=== PATIENT | female | born 1945 | race Caucasian/White ===

== ENCOUNTER 2020-06-19 13:05 | Outpatient (CLI) | payer MEDICARE, SELFPAY ==
--- NOTE | ~2020-06-19 | XR_ITS ---
XR chest 2V 06/19/2020 14:13 Indication: Dyspnea. Type 2 diabetes. Procedure: PA and lateral views of the chest Comparison: No prior studies for comparison. Findings: There is left basilar atelectasis. There is a small hiatal hernia. There is dextroscoliosis of the thoracic spine. Heart size normal. There is atherosclerosis of the aorta. No focal pneumonia, edema, pleural effusion or pneumothorax. Impression: 1: Left basilar atelectasis. 2: Scoliosis. 3: Small hiatal hernia. Reviewed, dictated and finalized at location A. ING MACHINE OPERATOR Impression: 1: Left basilar atelectasis. 2: Scoliosis. 3: Small hiatal hernia.
[2020-06-19 13:30] LABS: Basophils Absolute Auto 0.03 K/mm3 (0.00-0.10); Basophils Percent Auto 0.5 % (0.0-1.0); Eosinophils Absolute Auto 0.22 K/mm3 (0.02-0.50); Eosinophils Percent Auto 3.6 % (1.0-6.0); Hematocrit 39.1 % (35.0-42.0); Hemoglobin 12.4 g/dL (11.7-13.8); Immature Granulocyte Absolute 0.02 K/mm3 (0.00-0.00); Immature Granulocyte Percent A 0.3 % (0.0-0.0); Lymphocytes Absolute Auto 1.41 K/mm3 (1.10-4.50); Lymphocytes Percent Auto 23.4 % (18.0-42.0); Mean Corpuscular HGB Conc 31.7 g/dL (32.0-36.0); Mean Corpuscular Hemoglobin 28.8 pg (27.0-31.0); Mean Corpuscular Volume 90.9 fL (78.0-102.0); Mean Platelet Volume 9.4 fl (9.2-11.8); Monocytes Percent Auto 8.3 % (2.0-11.0); Neutrophils Absolute Auto 3.9 K/mm3 (1.7-7.2); Neutrophils Percent Auto 63.9 % (50.0-70.0); Platelet Count Result 256 K/mm3 (150-420); Red Cell Distribution Width 13.8 % (11.6-14.4)
[2020-06-19 13:48] LABS: Add Urine Microscopic? YES; Appearance Urine Clear (Clear); Bilirubin Urine Negative (Negative); Blood Urine Negative (Negative); Color Urine Yellow (Yellow); Glucose Urine UA Trace (Negative); Hemoglobin A1C 7.8 % (<5.7); Ketones Urine Negative (Negative); Leukocyte Esterase Ur Trace (Negative); Nitrate Urine Negative (Negative); Protein Urine Negative (Negative); Specific Grav Ur 1.015 (1.010-1.020); Urobilinogen Urine 0.2 mg/dL (0.2-1.0); pH Urine 5.5 (5.0-8.0)
--- NOTE | 2020-06-19 13:50 | ECG_ITS ---
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
[2020-06-19 13:56] LABS: RBC Urine 0-2 /hpf (0-2); WBC Urine 0-3 /hpf (0-3)
[2020-06-19 13:57] LABS: Bacteria Urine Trace /hpf; Squamous Epithelial Cell Urine Rare /hpf (Few)
[2020-06-19 14:22] LABS: Alanine Aminotransferase 26 U/L (14-59); Albumin Level 3.7 g/dL (3.4-5.0); Alkaline Phosphatase 83 U/L (46-116); Anion Gap 6 mmol/L (8-16); Aspartate Amino Transferase 13 U/L (15-37); Bilirubin,Total 0.5 mg/dL (0.00-1.00); Blood Urea Nitrogen 19 mg/dL (7-18); Calcium 8.9 mg/dL (8.5-10.1); Carbon Dioxide 30 mmol/L (21-32); Chloride 102 mmol/L (98-108); Cholesterol 152 mg/dL (0-200); Estimated Glomerular Filt Rate > 60; Glucose 127 mg/dL (70-99); HDL Direct 39 mg/dL (40-60); LDL Cholesterol Calculated 85 mg/dL (<130); Osmolality Calculated 290 mOsm/kg (285-295); Potassium 4.3 mmol/L (3.5-5.1); Sodium 138 mmol/L (136-145); Thyroid Stimulating Hormone 0.88 uIU/mL (0.36-3.74); Total Protein 6.5 g/dL (6.4-8.2); Triglycerides 138 mg/dL (0-150); Uric Acid 3.6 mg/dL (2.6-6.0)
[2020-06-19 14:25] LABS: CRP < 0.2 mg/dL (0.0-0.9)
[2020-06-19 15:04] LABS: BNP 52.2 pg/mL (0-100)
[2020-06-20 12:58] LABS: Reference Lab Test Result Negative
[2020-06-23 23:33] LABS: Methylmalonic Acid 114 nmol/L (87-318)
== END 2020-06-19 13:06 | disposition home or self-care (01) ==
LOC: CHSLAB 13:13
PROVIDERS: PCP Internal Medicine; Visit Provider Internal Medicine
DX: R06.00 Dyspnea, unspecified (principal); I10 Essential (primary) hypertension; E11.9 Type 2 diabetes mellitus without complications; E53.8 Deficiency of other specified B group vitamins; Z20.822 Contact with and (suspected) exposure to COVID-19; M25.50 Pain in unspecified joint
CPT/HCPCS: 36415; 71046; 80053; 80061; 81001; 83036; 83880; 83921; 84443; 84550; 85025; 86140; 86769; 93005

== ENCOUNTER 2020-06-30 13:51 | Outpatient (CLI) | payer MEDICARE, SELFPAY ==
--- NOTE | ~2020-06-30 | XR_ITS ---
XR lumbar spine 2-3V DATE: 06/30/2020 14:43 INDICATION: Back pain, knee pain TECHNIQUE: AP, lateral, coned lateral lumbosacral views COMPARISON: None FINDINGS: There is diffuse osteopenia. There is prominent rotatory levoscoliosis of the lumbar spine with severe degenerative disc disease t hroughout the lumbar and lumbosacral spine. No fracture or bone destruction is evident. The sacroiliac joints are intact. There is prominent abdominal aortic calcification without evidence of aneurysm. IMPRESSION: Prominent rotatory levoscoliosis and severe degenerative disc disease throughout the lumb ar and lower cervical spine Osteopenia Reviewed, dictated and finalized at location B. IMPRESSION: Prominent rotatory levoscoliosis and severe degenerative disc disea se throughout the lumbar and lower cervical spine Osteopenia
--- NOTE | ~2020-06-30 | XR_ITS ---
XR knee LT 3V 06/30/2020 14:43 Indication: Left knee pain Procedure: 3 views left knee Comparison: No prior studies for comparison. Findings: Severe osteoarthritis of the left knee. There is chondrocalcinosis. No acute fracture or tr aumatic malalignment. Osteopenia. Small joint effusion. Impression: 1: Severe osteoarthritis of the left knee. Reviewed, dictated and finalized at location A. Impression: 1: Severe osteoarthritis of the left knee.
--- NOTE | ~2020-06-30 | XR_ITS ---
XR knee RT 3V 06/30/2020 14:43 Indication: Right knee pain Procedure: 3 views right knee Comparison: No prior studies for comparison. Findings: There is moderate osteoarthritis of the right knee. Osteopenia. There is chondrocalcinosis. No significant joint effusion. No acute fracture or traumatic malalignment. Impression: 1: Moderate osteoarthritis of the right knee. 2: Chondrocalcinosis. Reviewed, dictated and finalized at location A. Impression: 1: Moderate osteoarthritis of the right knee. 2: Chondrocalcinosis.
--- NOTE | ~2020-06-30 | XR_ITS ---
XR hip BI wo pelvis DATE: 06/30/2020 14:43 INDICATION: Bilateral hip pain TECHNIQUE: AP and lateral views of each hip COMPARISON: None FINDINGS: There is diffuse osteopenia. There is mild osteoarthritis of the hip joints. No fracture or dislocation, avascular necrosis or bon e destruction of either hip is evident. IMPRESSION: Osteopenia Mild bilateral hip osteoarthritis Reviewed, dictated and finalized at location B.
== END 2020-06-30 13:52 | disposition home or self-care (01) ==
LOC: CHSLAB 13:53
PROVIDERS: PCP Internal Medicine; Visit Provider Internal Medicine
DX: M54.9 Dorsalgia, unspecified (principal); M25.562 Pain in left knee; M25.561 Pain in right knee
CPT/HCPCS: 72100; 73521; 73562

== ENCOUNTER 2021-02-05 13:47 | Outpatient (CLI) | payer MEDICARE, SELFPAY ==
--- NOTE | ~2021-02-05 | US_ITS ---
EXAMINATION: US venous doppler [facility] DATE: 02/05/2021 15:38 INDICATION: Left lower limb pain. TECHNIQUE: Grayscale ultrasound images without and with compression and Doppler ultrasound images of the left lower extremity veins were obtained. COMPARISON: None. FINDINGS: The visualized portions of left common femoral vein, profunda (deep) femoral vein, femoral vein, popl iteal vein, peroneal veins, posterior tibial veins, and greater saphenous vein outflow are patent. Th ere is a moderate-sized Portillo's cyst. IMPRESSION: 1. No deep venous thrombosis. 2. Moderate-sized Portillo's cyst. Reviewed, dictated and finalized at location A.
[2021-02-05 14:15] LABS: Hematocrit 40.1 % (35.0-42.0); Hemoglobin 12.8 g/dL (11.7-13.8); Mean Corpuscular HGB Conc 31.9 g/dL (32.0-36.0); Mean Corpuscular Hemoglobin 28.6 pg (27.0-31.0); Mean Corpuscular Volume 89.5 fL (78.0-102.0); Mean Platelet Volume 9.4 fl (9.2-11.8); Platelet Count Result 255 K/mm3 (150-420); Red Blood Count 4.48 M/mm3 (4.20-5.40); Red Cell Distribution Width 14.6 % (11.6-14.4); White Blood Count 4.7 K/mm3 (4.8-10.8)
[2021-02-05 14:35] LABS: Band Neutrophils Percent 0 % (0-6); Basophils Percent Manual 0 % (0-1); Eosinophils Absolute Manual 0.28 K/mm3 (0.02-0.5); Eosinophils Percent Manual 6 % (1-6); Lymphocytes Absolute Manual 0.84 K/mm3 (1.1-4.5); Lymphocytes Percent Manual 18 % (18-44); Monocytes Absolute Manual 0.42 K/mm3 (0.1-0.90); Monocytes Percent Manual 9 % (3-9); Neutrophils Absolute Manual 3.14 K/mm3 (1.7-7.2); Neutrophils Percent Manual 67 % (46-73); Platelet Estimate Adequate (Adequate); Total Cells Counted 100
[2021-02-05 14:42] LABS: D Dimer 0.85 mg/L (0.19-0.50)
[2021-02-05 14:53] LABS: Alanine Aminotransferase 34 U/L (14-59); Albumin Level 3.6 g/dL (3.4-5.0); Alkaline Phosphatase 106 U/L (46-116); Anion Gap 7 mmol/L (8-16); Aspartate Amino Transferase 20 U/L (15-37); Bilirubin,Total 0.4 mg/dL (0.00-1.00); Blood Urea Nitrogen 14 mg/dL (7-18); Calcium 8.9 mg/dL (8.5-10.1); Carbon Dioxide 30 mmol/L (21-32); Chloride 102 mmol/L (98-108); Estimated Glomerular Filt Rate > 60; Glucose 111 mg/dL (70-99); Osmolality Calculated 289 mOsm/kg (285-295); Potassium 4.5 mmol/L (3.5-5.1); Sodium 139 mmol/L (136-145); Total Protein 6.6 g/dL (6.4-8.2); Uric Acid 4.4 mg/dL (2.6-6.0)
== END 2021-02-05 13:48 | disposition home or self-care (01) ==
PROVIDERS: PCP Internal Medicine; Visit Provider Nurse Practitioner Family
DX: M79.662 Pain in left lower leg (principal); R79.1 Abnormal coagulation profile; M79.89 Other specified soft tissue disorders
CPT/HCPCS: 36415; 80053; 84550; 85025; 85380; 93971

== ENCOUNTER 2021-03-29 13:55 | Outpatient (CLI) | payer MEDICARE, SELFPAY ==
--- NOTE | ~2021-03-29 | XR_ITS ---
XR shoulder RT min 2V DATE: 03/29/2021 14:29 INDICATION: Right shoulder pain TECHNIQUE: 4 views COMPARISON: None FINDINGS: There is prominent dextroscoliosis of the thoracic spine. There is osteoarthritic change at the right glenohumeral joint including prominent joint space narrow ing. No fracture or dislocation, periosteal reaction or bone destruction or abnormal soft tissue calcifica tion of the right shoulder is detected. IMPRESSION: Osteoarthritis at the right glenohumeral joint Prominent dextroscoliosis of the thoracic spine Reviewed, dictated and finalized at location B. STMENT MANAGER
== END 2021-03-29 13:56 | disposition home or self-care (01) ==
LOC: CHSIMG 13:57
PROVIDERS: PCP Internal Medicine; Visit Provider Internal Medicine
DX: M25.511 Pain in right shoulder (principal)
CPT/HCPCS: 73030

== ENCOUNTER 2021-08-11 13:34 | Outpatient (CLI) | payer MEDICARE, SELFPAY ==
[2021-08-11 14:30] LABS: Hemoglobin A1C 7.5 % (<5.7)
[2021-08-11 15:24] LABS: Alanine Aminotransferase 26 U/L (14-59); Albumin Level 3.6 g/dL (3.4-5.0); Alkaline Phosphatase 100 U/L (46-116); Anion Gap 6 mmol/L (8-16); Aspartate Amino Transferase 16 U/L (15-37); Bilirubin,Total 0.4 mg/dL (0.00-1.00); Blood Urea Nitrogen 14 mg/dL (7-18); Calcium 9.1 mg/dL (8.5-10.1); Carbon Dioxide 30 mmol/L (21-32); Chloride 99 mmol/L (98-108); Estimated Glomerular Filt Rate > 60; Ferritin 17 ng/mL (8-252); Free T4 Free Thyroxine 1.18 ng/dL (0.76-1.46); Glucose 134 mg/dL (70-99); Iron 43 ug/dL (50-170); Osmolality Calculated 282 mOsm/kg (285-295); Percent Iron Saturation 12 % (12-57); Potassium 4.3 mmol/L (3.5-5.1); Sodium 135 mmol/L (136-145); Total Protein 6.1 g/dL (6.4-8.2)
[2021-08-12 15:29] LABS: Cholesterol 169 mg/dL (0-200); HDL Direct 44 mg/dL (40-60); LDL Cholesterol Calculated 101 mg/dL (<130); Triglycerides 119 mg/dL (0-150)
[2021-08-13 19:56] LABS: Glutamic acid decarboxylase AA <5 IU/mL (<5)
[2021-08-14 06:46] LABS: Insulin Level Total 36.7 uIU/mL (<=19.6); Thyroid Peroxidase Antibodies 35 IU/mL (<9)
[2021-08-14 08:09] LABS: C-Peptide 0.78 ng/mL (0.80-3.85)
[2021-08-16 14:51] LABS: Testosterone Free 0.9 pg/mL (0.2-3.7); Testosterone Total 14 ng/dL (2-45)
== END 2021-08-11 13:35 | disposition home or self-care (01) ==
LOC: CHSLAB 13:37
PROVIDERS: PCP Internal Medicine; Visit Provider Nurse Practitioner
DX: E03.9 Hypothyroidism, unspecified (principal); L65.9 Nonscarring hair loss, unspecified; E11.65 Type 2 diabetes mellitus with hyperglycemia
CPT/HCPCS: 36415; 80053; 80061; 82728; 83036; 83525; 83540; 83550; 84402; 84403; 84439; 84443; 84481; 84681; 86337; 86341; 86376

== ENCOUNTER 2022-01-06 15:58 | Outpatient (CLI) | payer MEDICARE, SELFPAY ==
[2022-01-06 16:30] LABS: Basophils Absolute Auto 0.03 K/mm3 (0.00-0.10); Basophils Percent Auto 0.4 % (0.0-1.0); Eosinophils Absolute Auto 0.31 K/mm3 (0.02-0.50); Eosinophils Percent Auto 4.6 % (1.0-6.0); Hematocrit 40.8 % (35.0-42.0); Hemoglobin 13.4 g/dL (11.7-13.8); Immature Granulocyte Absolute 0.03 K/mm3 (0.00-0.00); Immature Granulocyte Percent A 0.4 % (0.0-0.0); Immature Reticulocyte Fraction 15.9 % (2.0-16.52); Lymphocytes Absolute Auto 1.02 K/mm3 (1.10-4.50); Lymphocytes Percent Auto 15.1 % (18.0-42.0); Mean Corpuscular HGB Conc 32.8 g/dL (32.0-36.0); Mean Corpuscular Hemoglobin 30.7 pg (27.0-31.0); Mean Corpuscular Volume 93.4 fL (78.0-102.0); Monocytes Absolute Auto 0.49 K/mm3 (0.10-0.90); Monocytes Percent Auto 7.2 % (2.0-11.0); Neutrophils Absolute Auto 4.9 K/mm3 (1.7-7.2); Neutrophils Percent Auto 72.3 % (50.0-70.0); Platelet Count Result 280 K/mm3 (150-420); Red Blood Count 4.37 M/mm3 (4.20-5.40); Reticulocyte Hemoglobin Conten 34.8 pg (28.0-35.0); Reticulocyte Percent 2.28 % (0.50-1.50); White Blood Count 6.8 K/mm3 (4.8-10.8)
[2022-01-06 17:25] LABS: Alanine Aminotransferase 46 U/L (14-59); Albumin Level 2.4 g/dL (3.4-5.0); Alkaline Phosphatase 117 U/L (46-116); Anion Gap 13 mmol/L (8-16); Aspartate Amino Transferase 111 U/L (15-37); Bilirubin,Total 2.2 mg/dL (0.00-1.00); Blood Urea Nitrogen 126 mg/dL (7-18); Carbon Dioxide 22 mmol/L (21-32); Chloride 99 mmol/L (98-108); Estimated Glomerular Filt Rate 6; Folic Acid 3.7 ng/mL (8.6->20); Glucose 83 mg/dL (70-99); Iron 88 ug/dL (50-170); Osmolality Calculated 317 mOsm/kg (285-295); Percent Iron Saturation 91 % (12-57); Potassium 6.1 mmol/L (3.5-5.1); Sodium 134 mmol/L (136-145); Total Protein 6.2 g/dL (6.4-8.2)
[2022-01-06 17:30] LABS: Ferritin > 1000 ng/mL (8-252); Vitamin B12 > 2000 pg/mL (193-986)
[2022-01-09 16:58] LABS: Methylmalonic Acid 103 nmol/L (87-318)
[2022-01-11 17:44] LABS: Soluble Transferrin Receptor 0.82 mg/L (0.76-1.76)
== END 2022-01-06 15:59 | disposition home or self-care (01) ==
LOC: CHSLAB 16:01
PROVIDERS: PCP Internal Medicine; Visit Provider Internal Medicine Hematology & Oncology
DX: D64.9 Anemia, unspecified (principal)
CPT/HCPCS: 36415; 80053; 82607; 82728; 82746; 83540; 83550; 83921; 84238; 85025; 85046

== ENCOUNTER 2022-01-19 14:02 | Outpatient (CLI) | payer MEDICARE, SELFPAY ==
[2022-01-19 14:25] LABS: Hematocrit 39.4 % (35.0-42.0); Hemoglobin 12.9 g/dL (11.7-13.8); Mean Corpuscular HGB Conc 32.7 g/dL (32.0-36.0); Mean Corpuscular Hemoglobin 30.1 pg (27.0-31.0); Mean Corpuscular Volume 91.8 fL (78.0-102.0); Mean Platelet Volume 9.6 fl (9.2-11.8); Platelet Count Result 278 K/mm3 (150-420); Red Blood Count 4.29 M/mm3 (4.20-5.40); Red Cell Distribution Width 12.8 % (11.6-14.4); White Blood Count 7.2 K/mm3 (4.8-10.8)
[2022-01-19 15:11] LABS: Alanine Aminotransferase 26 U/L (14-59); Albumin Level 3.4 g/dL (3.4-5.0); Alkaline Phosphatase 104 U/L (46-116); Anion Gap 6 mmol/L (8-16); Aspartate Amino Transferase 17 U/L (15-37); Bilirubin,Total 0.4 mg/dL (0.00-1.00); Blood Urea Nitrogen 11 mg/dL (7-18); Calcium 9.1 mg/dL (8.5-10.1); Carbon Dioxide 30 mmol/L (21-32); Chloride 102 mmol/L (98-108); Estimated Glomerular Filt Rate > 60; Ferritin 41 ng/mL (8-252); Glucose 114 mg/dL (70-99); Osmolality Calculated 286 mOsm/kg (285-295); Potassium 4.1 mmol/L (3.5-5.1); Sodium 138 mmol/L (136-145); Total Protein 6.2 g/dL (6.4-8.2)
[2022-01-19 15:13] LABS: Folic Acid > 20.0 ng/mL (8.6->20); Vitamin B12 > 2000 pg/mL (193-986)
== END 2022-01-19 14:03 | disposition home or self-care (01) ==
LOC: CHSLAB 14:05
PROVIDERS: PCP Internal Medicine; Visit Provider Internal Medicine Hematology & Oncology
DX: D64.9 Anemia, unspecified (principal)
CPT/HCPCS: 36415; 80053; 82607; 82728; 82746; 85027

== ENCOUNTER 2022-03-09 14:09 | Outpatient (CLI) | payer MEDICARE, SELFPAY ==
[2022-03-09 14:46] LABS: Hemoglobin A1C 7.3 % (<5.7)
[2022-03-09 15:29] LABS: Alanine Aminotransferase 26 U/L (14-59); Albumin Level 3.4 g/dL (3.4-5.0); Alkaline Phosphatase 84 U/L (46-116); Anion Gap 6 mmol/L (8-16); Aspartate Amino Transferase 17 U/L (15-37); Bilirubin,Total 0.5 mg/dL (0.00-1.00); Blood Urea Nitrogen 17 mg/dL (7-18); Carbon Dioxide 33 mmol/L (21-32); Chloride 104 mmol/L (98-108); Cholesterol 164 mg/dL (0-200); Estimated Glomerular Filt Rate > 60; Ferritin 27 ng/mL (8-252); Free T3 2.07 pg/mL (2.18-3.98); Free T4 Free Thyroxine 1.22 ng/dL (0.76-1.46); Glucose 72 mg/dL (70-99); HDL Direct 44 mg/dL (40-60); Iron 60 ug/dL (50-170); LDL Cholesterol Calculated 104 mg/dL (<130); Osmolality Calculated 296 mOsm/kg (285-295); Percent Iron Saturation 19 % (12-57); Sodium 143 mmol/L (136-145); Thyroid Stimulating Hormone 0.58 uIU/mL (0.36-3.74); Total Protein 5.8 g/dL (6.4-8.2); Triglycerides 79 mg/dL (0-150)
[2022-03-12 03:04] LABS: C-Peptide 0.39 ng/mL (0.80-3.85)
[2022-03-13 04:28] LABS: Thyroid Peroxidase Antibodies 41 IU/mL (<9)
== END 2022-03-09 14:10 | disposition home or self-care (01) ==
LOC: CHSLAB 14:12
PROVIDERS: PCP Internal Medicine; Visit Provider Nurse Practitioner
DX: E03.9 Hypothyroidism, unspecified (principal); E11.65 Type 2 diabetes mellitus with hyperglycemia; E61.1 Iron deficiency
CPT/HCPCS: 36415; 80053; 80061; 82728; 83036; 83540; 83550; 84439; 84443; 84481; 84681; 86376

== ENCOUNTER 2022-04-25 13:31 | Outpatient (CLI) | payer MEDICARE, SELFPAY ==
--- NOTE | ~2022-04-25 | XR_ITS ---
XR shoulder RT min 2V DATE: 04/25/2022 13:55 INDICATION: Right shoulder pain TECHNIQUE: 4 views COMPARISON: 03/29/2021 right shoulder FINDINGS: There is severe joint space narrowing at the right glenohumeral joint with prominent subart icular degenerative cystic change at the glenoid and particularly of the humeral head, in addition to humeral head spurring, consistent with severe glenohumeral osteoarthritis. Normal alignment at the acromioclavicular joint. No fracture, dislocation, periosteal reaction or bone destruction or abnormal soft tissue calcificati on of the right shoulder. Prominent dextroscoliosis of the thoracic spine. IMPRESSION: Severe glenohumeral osteoarthritis Reviewed, dictated and finalized at location B. IT UNION FIELD EXAMINER
== END 2022-04-25 13:32 | disposition home or self-care (01) ==
LOC: ANHBWCIMG 13:32
PROVIDERS: PCP Internal Medicine; Visit Provider Orthopaedic Surgery
DX: M19.011 Primary osteoarthritis, right shoulder (principal); M25.511 Pain in right shoulder
CPT/HCPCS: 73030

== ENCOUNTER 2022-05-27 15:14 | Outpatient (CLI) | payer MEDICARE, SELFPAY ==
[2022-05-27 15:48] LABS: Hemoglobin A1C 7.8 % (<5.7)
[2022-05-27 16:12] LABS: Alanine Aminotransferase 28 U/L (14-59); Albumin Level 3.5 g/dL (3.4-5.0); Alkaline Phosphatase 98 U/L (46-116); Anion Gap 4 mmol/L (8-16); Aspartate Amino Transferase 18 U/L (15-37); Bilirubin,Total 0.4 mg/dL (0.00-1.00); Blood Urea Nitrogen 17 mg/dL (7-18); Carbon Dioxide 34 mmol/L (21-32); Chloride 104 mmol/L (98-108); Cholesterol 153 mg/dL (0-200); Estimated Glomerular Filt Rate > 60; Glucose 86 mg/dL (70-99); HDL Direct 42 mg/dL (40-60); LDL Cholesterol Calculated 96 mg/dL (<130); Osmolality Calculated 294 mOsm/kg (285-295); Potassium 4.5 mmol/L (3.5-5.1); Sodium 142 mmol/L (136-145); Triglycerides 73 mg/dL (0-150)
== END 2022-05-27 15:15 | disposition home or self-care (01) ==
LOC: CHSLAB 15:21
PROVIDERS: PCP Internal Medicine; Visit Provider Internal Medicine
DX: E11.9 Type 2 diabetes mellitus without complications (principal); I10 Essential (primary) hypertension; E03.9 Hypothyroidism, unspecified
CPT/HCPCS: 36415; 80053; 80061; 83036; 84443

== ENCOUNTER 2022-05-31 14:34 | Outpatient (CLI) | payer MEDICARE, SELFPAY ==
[2022-05-31 14:56] LABS: Basophils Absolute Auto 0.04 K/mm3 (0.00-0.10); Basophils Percent Auto 0.6 % (0.0-1.0); Eosinophils Absolute Auto 0.33 K/mm3 (0.02-0.50); Eosinophils Percent Auto 4.9 % (1.0-6.0); Hemoglobin 12.6 g/dL (11.7-13.8); Immature Granulocyte Absolute 0.03 K/mm3 (0.00-0.00); Immature Granulocyte Percent A 0.4 % (0.0-0.0); Lymphocytes Absolute Auto 1.04 K/mm3 (1.10-4.50); Lymphocytes Percent Auto 15.4 % (18.0-42.0); Mean Corpuscular HGB Conc 31.5 g/dL (32.0-36.0); Mean Corpuscular Hemoglobin 29.8 pg (27.0-31.0); Mean Corpuscular Volume 94.6 fL (78.0-102.0); Mean Platelet Volume 9.5 fl (9.2-11.8); Monocytes Absolute Auto 0.62 K/mm3 (0.10-0.90); Monocytes Percent Auto 9.2 % (2.0-11.0); Neutrophils Absolute Auto 4.7 K/mm3 (1.7-7.2); Neutrophils Percent Auto 69.5 % (50.0-70.0); Platelet Count Result 275 K/mm3 (150-420); Red Blood Count 4.23 M/mm3 (4.20-5.40); Red Cell Distribution Width 13.2 % (11.6-14.4); White Blood Count 6.8 K/mm3 (4.8-10.8)
[2022-05-31 15:46] LABS: Anion Gap 7 mmol/L (8-16); Blood Urea Nitrogen 13 mg/dL (7-18); Calcium 9.2 mg/dL (8.5-10.1); Carbon Dioxide 29 mmol/L (21-32); Chloride 104 mmol/L (98-108); Estimated Glomerular Filt Rate > 60; Ferritin 31 ng/mL (8-252); Glucose 110 mg/dL (70-99); Iron 47 ug/dL (50-170); Osmolality Calculated 291 mOsm/kg (285-295); Percent Iron Saturation 15 % (12-57); Potassium 4.1 mmol/L (3.5-5.1); Sodium 140 mmol/L (136-145)
[2022-05-31 16:07] LABS: Vitamin B12 > 2000 pg/mL (193-986)
[2022-05-31 16:08] LABS: Folic Acid > 20.0 ng/mL (8.6->20)
== END 2022-05-31 14:35 | disposition home or self-care (01) ==
PROVIDERS: PCP Internal Medicine; Visit Provider Internal Medicine Hematology & Oncology
DX: D64.9 Anemia, unspecified (principal)
CPT/HCPCS: 36415; 80048; 82607; 82728; 82746; 83540; 83550; 85025

== ENCOUNTER 2022-08-30 16:24 | Outpatient (CLI) | payer MEDICARE, SELFPAY ==
[2022-08-30 18:41] LABS: Alanine Aminotransferase 25 U/L (14-59); Albumin Level 3.8 g/dL (3.4-5.0); Alkaline Phosphatase 111 U/L (46-116); Anion Gap 6 mmol/L (8-16); Aspartate Amino Transferase 17 U/L (15-37); Bilirubin,Total 0.5 mg/dL (0.00-1.00); Blood Urea Nitrogen 17 mg/dL (7-18); Calcium 9.6 mg/dL (8.5-10.1); Carbon Dioxide 31 mmol/L (21-32); Chloride 104 mmol/L (98-108); Cholesterol 168 mg/dL (0-200); Estimated Glomerular Filt Rate > 60; Free T3 3.03 pg/mL (2.18-3.98); Free T4 Free Thyroxine 1.42 ng/dL (0.76-1.46); Glucose 129 mg/dL (70-99); Osmolality Calculated 295 mOsm/kg (285-295); Potassium 4.4 mmol/L (3.5-5.1); Sodium 141 mmol/L (136-145); Thyroid Stimulating Hormone 0.01 uIU/mL (0.36-3.74); Total Protein 6.3 g/dL (6.4-8.2)
[2022-08-30 19:09] LABS: HDL Direct 40 mg/dL (40-60); LDL Cholesterol Calculated 100 mg/dL (<130); Triglycerides 139 mg/dL (0-150)
[2022-09-04 21:34] LABS: C-Peptide 0.83 ng/mL (0.80-3.85)
[2022-09-05 02:17] LABS: Thyroid Peroxidase Antibodies 243 IU/mL (<9)
== END 2022-08-30 16:25 | disposition home or self-care (01) ==
LOC: CHSLAB 16:27
PROVIDERS: PCP Internal Medicine; Visit Provider Internal Medicine Endocrinology, Diabetes & Metabolism
DX: E03.9 Hypothyroidism, unspecified (principal); E13.9 Other specified diabetes mellitus without complications
CPT/HCPCS: 36415; 80053; 80061; 83036; 84439; 84443; 84481; 84681; 86376

== ENCOUNTER 2022-09-27 14:54 | Outpatient (CLI) | payer MEDICARE, SELFPAY ==
[2022-09-27 15:46] LABS: Basophils Absolute Auto 0.03 K/mm3 (0.00-0.10); Basophils Percent Auto 0.4 % (0.0-1.0); Eosinophils Absolute Auto 0.33 K/mm3 (0.02-0.50); Eosinophils Percent Auto 4.2 % (1.0-6.0); Hematocrit 39.3 % (35.0-42.0); Hemoglobin 12.3 g/dL (11.7-13.8); Immature Granulocyte Absolute 0.02 K/mm3 (0.00-0.00); Immature Granulocyte Percent A 0.3 % (0.0-0.0); Lymphocytes Absolute Auto 0.98 K/mm3 (1.10-4.50); Lymphocytes Percent Auto 12.5 % (18.0-42.0); Mean Corpuscular HGB Conc 31.3 g/dL (32.0-36.0); Mean Corpuscular Hemoglobin 29.3 pg (27.0-31.0); Mean Corpuscular Volume 93.6 fL (78.0-102.0); Mean Platelet Volume 10.3 fl (9.2-11.8); Monocytes Absolute Auto 0.65 K/mm3 (0.10-0.90); Monocytes Percent Auto 8.3 % (2.0-11.0); Neutrophils Absolute Auto 5.9 K/mm3 (1.7-7.2); Neutrophils Percent Auto 74.3 % (50.0-70.0); Platelet Count Result 281 K/mm3 (150-420); Red Cell Distribution Width 14.4 % (11.6-14.4); White Blood Count 7.9 K/mm3 (4.8-10.8)
[2022-09-27 16:01] LABS: Anion Gap 7 mmol/L (8-16); Blood Urea Nitrogen 15 mg/dL (7-18); Calcium 9.3 mg/dL (8.5-10.1); Carbon Dioxide 30 mmol/L (21-32); Chloride 105 mmol/L (98-108); Estimated Glomerular Filt Rate > 60; Ferritin 50 ng/mL (8-252); Glucose 130 mg/dL (70-99); Iron 29 ug/dL (50-170); Osmolality Calculated 296 mOsm/kg (285-295); Percent Iron Saturation 9 % (12-57); Potassium 4.3 mmol/L (3.5-5.1); Sodium 142 mmol/L (136-145); Vitamin B12 > 2000 pg/mL (193-986)
[2022-09-27 16:02] LABS: Folic Acid > 20.0 ng/mL (8.6->20)
== END 2022-09-27 14:55 | disposition home or self-care (01) ==
LOC: CHSLAB 14:57
PROVIDERS: PCP Internal Medicine; Visit Provider Internal Medicine Hematology & Oncology
DX: D64.9 Anemia, unspecified (principal)
CPT/HCPCS: 36415; 80048; 82607; 82728; 82746; 83540; 83550; 85025

== ENCOUNTER 2022-09-27 18:28 | Emergency (ER) | payer MEDICARE, SELFPAY ==
--- NOTE | ~2022-09-27 | XR_ITS ---
EXAM: XR foot RT min 3V DATE: 09/27/2022 19:32 HISTORY: Diabetic ulcer 2nd toe . COMPARISON: None available. FINDINGS: Decreased mineralization. No fracture or dislocation. No lytic or blastic lesion. Scattere d moderate degenerative changes. No erosion or periosteal change. Soft tissues within normal limits. IMPRESSION: No radiographic evidence of osteomyelitis. Reviewed, dictated and finalized at location K.
[2022-09-27 18:31] VITALS: BP 156/60; PULSE 89; RESP 18; TEMP 36.9; O2SAT 96
--- NOTE | 2022-09-27 18:35 | ED.WOUNDLAC ---
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 He did debridement of the wound following which nail fell off. The patient was started on Keflex. She presents to the ER with extension of erythema and puss at the nail fold. Swelling of right leg and foot She does not have any fever or chills. Onset (ago): day(s) ( Started 3 days ago) Extremity Location: Right: foot Body four view annotation: 1. right foot 2nd toe with denudation of skin over the top and the sides of the 2nd toe. Purulent discharge at the nail fold. Patient tetanus UTD: No Context: other ( the blister came up spontaneously.) Associated symptoms: none Related Data Home Medications Medication Instructions Recorded Confirmed cephalexin 500 mg capsule 500 mg PO BID 09/27/22 09/27/22 duloxetine 20 mg capsule,delayed 20 mg PO DAILY 09/27/22 09/27/22 release insulin glargine 100 unit/mL 25 unit subcut BID 09/27/22 09/27/22 subcutaneous solution (Lantus U-100 Insulin) latanoprost 0.005 % eye drops 1 drp EACH EYE DAILY 09/27/22 09/27/22 levothyroxine 125 mcg tablet 125 mcg PO DAILY 09/27/22 09/27/22 (Unithroid) lisinopril 40 mg tablet 40 mg PO DAILY 09/27/22 09/27/22 timolol maleate 0.5 % eye drops 10 drp EACH EYE DAILY 09/27/22 09/27/22 verapamil 360 mg 24 hr 360 mg PO DAILY 09/27/22 09/27/22 capsule,extended release Allergies Allergy/AdvReac Type Severity Reaction Status Date / Time No Known Allergies Allergy Verified 09/27/22 18:39 Review of Systems Review of Systems: All systems reviewed & are unremarkable except as noted in HPI and below Constitutional: Constitutional: Reports as per HPI and Reports no additional constitutional complaints Eyes: Eyes: Reports as per HPI and Reports no additional eye complaints ENT: Reports system reviewed and no additional complaints, except as documented and Reports as per HPI Cardiovascular: Cardiovascular: Reports as per HPI and Reports no additional cardiovascular complaints Respiratory: Respiratory: Reports as per HPI and Reports no additional respiratory complaints Gastrointestinal: Gastrointestinal: Reports as per HPI and Reports no additional gastrointestinal complaints Genitourinary: Genitourinary: Reports no additional female genitourinary complaints and Reports as per HPI Musculoskeletal: Musculoskeletal: Reports no additional musculoskeletal complaints and Reports as per HPI Integumentary/Breasts: Skin/Breast: Reports system reviewed and no additional complaints, except as docu and Reports as per HPI Comments: Ulceration over right 2nd toe with denuded skin over the top of the sites of the 2nd toe Neurologic: Reports system reviewed and no additional complaints, except as documented and Reports as per HPI Psychiatric: Psychiatric: Reports no additional psychiatric complaints and Reports as per HPI Endocrine: Endocrine: Reports no additional endocrine complaints and Reports as per HPI Hematologic/Lymphatic: Hematologic/Lymphatic: Reports no additional hematologic/lymphatic complaints and Reports as per HPI Allergic/Immunologic: Allergic/Immunologic: Reports no additional allergic/immunologic complaints and Reports as per HPI [facility] Past Medical History Medical History (Updated 09/27/22 @ 20:21 by Keyon Donald MD) Arthritis of left shoulder region Arthritis of shoulder region, right, degenerative Diabetes mellitus Hypertension Hypothyroidism Peripheral neuropathy Social History Social History Smoking status:
[2022-09-27 19:37] LABS: Hematocrit 38.9 % (35.0-42.0); Hemoglobin 12.2 g/dL (11.7-13.8); Mean Corpuscular HGB Conc 31.4 g/dL (32.0-36.0); Mean Corpuscular Hemoglobin 29.5 pg (27.0-31.0); Platelet Count Result 261 K/mm3 (150-420); Red Blood Count 4.14 M/mm3 (4.20-5.40); Red Cell Distribution Width 14.5 % (11.6-14.4); White Blood Count 7.6 K/mm3 (4.8-10.8)
[2022-09-27 19:38] LABS: Basophils Absolute Auto 0.02 K/mm3 (0.00-0.10); Basophils Percent Auto 0.3 % (0.0-1.0); Eosinophils Absolute Auto 0.27 K/mm3 (0.02-0.50); Eosinophils Percent Auto 3.6 % (1.0-6.0); Immature Granulocyte Absolute 0.03 K/mm3 (0.00-0.00); Immature Granulocyte Percent A 0.4 % (0.0-0.0); Lymphocytes Absolute Auto 0.91 K/mm3 (1.10-4.50); Mean Platelet Volume 9.9 fl (9.2-11.8); Monocytes Percent Auto 7.9 % (2.0-11.0); Neutrophils Absolute Auto 5.7 K/mm3 (1.7-7.2); Neutrophils Percent Auto 75.8 % (50.0-70.0)
[2022-09-27 19:50] LABS: INR 0.9; Prothrombin Time 10.2 Seconds (9.50-12.10)
[2022-09-27 19:52] VITALS: BP 136/51; PULSE 71; RESP 16; O2SAT 92
[2022-09-27 19:59] LABS: Lactic Acid Reflex 1.1 mmol/L (0.4-2.0)
[2022-09-27 20:01] LABS: Alanine Aminotransferase 23 U/L (14-59); Albumin Level 3.1 g/dL (3.4-5.0); Alkaline Phosphatase 108 U/L (46-116); Anion Gap 8 mmol/L (8-16); Aspartate Amino Transferase 16 U/L (15-37); Bilirubin,Total 0.4 mg/dL (0.00-1.00); Blood Urea Nitrogen 17 mg/dL (7-18); Calcium 8.9 mg/dL (8.5-10.1); Carbon Dioxide 29 mmol/L (21-32); Chloride 104 mmol/L (98-108); Estimated CRCL calculation 43 ml/min; Estimated Glomerular Filt Rate 60; Glucose 350 mg/dL (70-99); Osmolality Calculated 307 mOsm/kg (285-295); Potassium 4.1 mmol/L (3.5-5.1); Sodium 141 mmol/L (136-145); Thyroid Stimulating Hormone 0.04 uIU/mL (0.36-3.74); Total Protein 6.4 g/dL (6.4-8.2)
[2022-09-27] MEDS: SULFAMETHOXAZOLE/TRIMETHOPRIM 800/160 MG DS TABLET 1 TAB PO (20:21)
[2022-09-27] MEDS: TETANUS,DIPHTHERIA,AC PERTUSSIS ADULT 0.5 ML (ADACEL) IM (20:22)
[2022-09-27 20:42] LABS: Erythrocyte Sedimentation Rate 27 mm/hr (0-20)
[2022-09-27 20:44] VITALS: BP 133/51; PULSE 71; RESP 18; O2SAT 94
--- NOTE | 2022-10-01 13:55 | PC.NURSE ---
Final blood culture report for Aerobic culture, moderate growth of staphylococcus aureus, patient d/c on bactrim ds that show sensativity. no change in treatment.
--- NOTE | 2022-10-04 14:36 | PC.NURSE ---
FINAL ANAEROBIC CULTURE: GRAM POSITIVE COCCI IN CLUSTERS, NO ANAEROBES ISOLATED. FINAL AEROBIC CULTURE: ISOLATE 1: MODERATED GROWTH OF STAPH AUREUS PER DR BAINS AND C & S TREATMENT IS APPROPRIATE
--- NOTE | 2022-10-04 14:40 | PC.NURSE ---
FINAL BLOOD CULTURE RESULTS X2: NO GROWTH AFTER 5 DA
== END 2022-09-27 20:45 | disposition home or self-care (01) ==
PROVIDERS: Emergency Provider Internal Medicine Critical Care Medicine; PCP Internal Medicine
DX: E11.628 Type 2 diabetes mellitus with other skin complications (principal); L03.031 Cellulitis of right toe; E11.65 Type 2 diabetes mellitus with hyperglycemia; M79.89 Other specified soft tissue disorders; I10 Essential (primary) hypertension; E03.9 Hypothyroidism, unspecified; Z79.4 Long term (current) use of insulin; Z23 Encounter for immunization
CPT/HCPCS: 36415; 73630; 80053; 83605; 84443; 85025; 85610; 85652; 87040; 87070; 87075; 87147; 87186; 87205; 90471; 90715; 99283; A9270

== ENCOUNTER 2022-10-24 13:33 | Emergency (ER) | payer MEDICARE, SELFPAY ==
[2022-10-24 13:34] VITALS: BP 151/73; PULSE 81; RESP 20; TEMP 37.1; O2SAT 98
--- NOTE | 2022-10-24 14:18 | ED.GENADULT ---
HPI - General Adult General Chief complaint: Extremity Injury, Lower Stated complaint: R toe cellulitis Time Seen by Provider: 10/24/22 13:45 History of Present Illness HPI narrative: 77yo woman with diabetes mellitus (a1c 8%) presents with chronic wound to the top of the second toe on the right foot. Started as a blister that ruptures, continues to leak clear fluid. Pt has been dressing tightly with gauze and wearing closed toed shoes. No fevers or chills. Related Data Home Medications Medication Instructions Recorded Confirmed cephalexin 500 mg capsule 500 mg PO BID 09/27/22 09/27/22 duloxetine 20 mg capsule,delayed 20 mg PO DAILY 09/27/22 09/27/22 release insulin glargine 100 unit/mL 25 unit subcut BID 09/27/22 09/27/22 subcutaneous solution (Lantus U-100 Insulin) latanoprost 0.005 % eye drops 1 drp EACH EYE DAILY 09/27/22 09/27/22 levothyroxine 125 mcg tablet 125 mcg PO DAILY 09/27/22 09/27/22 (Unithroid) lisinopril 40 mg tablet 40 mg PO DAILY 09/27/22 09/27/22 timolol maleate 0.5 % eye drops 10 drp EACH EYE DAILY 09/27/22 09/27/22 verapamil 360 mg 24 hr 360 mg PO DAILY 09/27/22 09/27/22 capsule,extended release Allergies Allergy/AdvReac Type Severity Reaction Status Date / Time No Known Allergies Allergy Verified 09/27/22 18:39 Review of Systems Review of Systems: All systems reviewed & are unremarkable except as noted in HPI and below Constitutional: Constitutional: Denies chills and Denies fever(s) ENT: Denies dysphagia Cardiovascular: Cardiovascular: Denies chest pain Respiratory: Respiratory: Denies dyspnea PMFSH Past Medical History Medical History Arthritis of left shoulder region Arthritis of shoulder region, right, degenerative Diabetes mellitus Hypertension Hypothyroidism Peripheral neuropathy Social History Social History Smoking status: Never smoker Exam Const: General: healthy appearing and no acute distress Nutritional Appearance: well nourished Eyes: Conjunctivae: conjunctivae normal Resp: Effort & Inspection: normal respiratory effort and not labored Cardio: Rate: regular rate GI: Inspection: non-distended Skin: General skin exam: no jaundice and no pallor Other: Mild Chronic venous stasis dermatitis with hyperpigmentation to the feet and lower legs. Right second toe with denuded dorsal blister and chronically thickened skin. No surrounding cellulitis. Neuro: General: patient oriented x3 and moves all extremities Course Vital Signs Vital signs: Vital Signs Temperature 37.1 C 10/24/22 13:34 Pulse Rate 81 10/24/22 13:34 Respiratory Rate 20 10/24/22 13:34 Blood Pressure 151/73 H 10/24/22 13:34 Pulse Oximetry 98 10/24/22 13:34 Oxygen Delivery Room Air 10/24/22 13:34 Temperature 37.1 C 10/24/22 13:34 Pulse Rate 81 10/24/22 13:34 Respiratory Rate 10/24/22 13:34 Blood Pressure 151/73 H 10/24/22 13:34 Pulse Oximetry 98 10/24/22 13:34 Oxygen Delivery Room Air 10/24/22 13:34 Medical Decision Making MDM Narrative Medical decision making narrative: traumatic ulceration second toe of right foot with difficulty healing, likely secondary to continued friction and trauma. Pt needs to wear open-toed shoes. Can dress wound loosely with gauze to collect drainage but should not wrap the individual toe. Needs elevated leg throughout the day to reduce pressure from venous stasis and edema. Will Rx course of antibiotics. Vital Signs Vital Signs: Vital Signs Temperature 37.1 C 10/24/22 13:34 Pulse Rate 10/24/22 13:34 Respiratory Rate 10/24/22 13:34 Blood Pressure 151/73 H 10/24/22 13:34 Pulse Oximetry 98 10/24/22 13:34 Oxygen Delivery Room Air 10/24/22 13:34 Temperature 37.1 C 10/24/22 13:34 Pulse Rate 10/24/22 13:34 Respiratory Rate 20
[2022-10-24 14:52] VITALS: BP 148/72; PULSE 80; RESP 20; TEMP 36.9; O2SAT 98
== END 2022-10-24 14:56 | disposition home or self-care (01) ==
PROVIDERS: Emergency Provider Emergency Medicine; PCP Internal Medicine
DX: S90.821A Blister (nonthermal), right foot, initial encounter (principal); I10 Essential (primary) hypertension; E11.9 Type 2 diabetes mellitus without complications; E03.9 Hypothyroidism, unspecified; X58.XXXA Exposure to other specified factors, initial encounter
CPT/HCPCS: 99283

== ENCOUNTER 2022-11-07 15:26 | Outpatient (CLI) | payer MEDICARE, SELFPAY ==
--- NOTE | ~2022-11-07 | XR_ITS ---
EXAMINATION: XR foot RT min 3V DATE: 11/07/2022 16:02 INDICATION: Nonhealing diabetic foot wound at the second third toes TECHNIQUE: Dorsoplantar, two oblique and lateral views of the right foot were obtained. COMPARISON: 09/27/2022 FINDINGS: Diffuse osteopenia. Bone alignment is normal. No fracture. Mild polyarticular osteoarthritis involvin g the first metatarsophalangeal and multiple tarsometatarsal and interphalangeal joints. No erosions or periosteal reaction to suggest osteomyelitis. No soft tissue gas or radiopaque foreign bodies. IMPRESSION: 1. No acute osseous abnormality or lesions suspicious for osteomyelitis. 2. Diffuse osteopenia. Reviewed, dictated and finalized at location B.
[2022-11-07 15:49] LABS: Basophils Absolute Auto 0.03 K/mm3 (0.00-0.10); Basophils Percent Auto 0.4 % (0.0-1.0); Eosinophils Absolute Auto 0.28 K/mm3 (0.02-0.50); Eosinophils Percent Auto 3.9 % (1.0-6.0); Hematocrit 39.9 % (35.0-42.0); Hemoglobin 12.9 g/dL (11.7-13.8); Immature Granulocyte Absolute 0.02 K/mm3 (0.00-0.00); Immature Granulocyte Percent A 0.3 % (0.0-0.0); Lymphocytes Absolute Auto 1.05 K/mm3 (1.10-4.50); Lymphocytes Percent Auto 14.6 % (18.0-42.0); Mean Corpuscular HGB Conc 32.3 g/dL (32.0-36.0); Mean Corpuscular Hemoglobin 30.4 pg (27.0-31.0); Mean Corpuscular Volume 94.1 fL (78.0-102.0); Monocytes Absolute Auto 0.58 K/mm3 (0.10-0.90); Monocytes Percent Auto 8.1 % (2.0-11.0); Neutrophils Absolute Auto 5.2 K/mm3 (1.7-7.2); Neutrophils Percent Auto 72.7 % (50.0-70.0); Platelet Count Result 269 K/mm3 (150-420); Red Blood Count 4.24 M/mm3 (4.20-5.40); Red Cell Distribution Width 14.4 % (11.6-14.4); White Blood Count 7.2 K/mm3 (4.8-10.8)
[2022-11-07 16:16] LABS: Hemoglobin A1C 7.8 % (<5.7)
[2022-11-07 16:23] LABS: Alanine Aminotransferase 26 U/L (14-59); Albumin Level 3.7 g/dL (3.4-5.0); Alkaline Phosphatase 125 U/L (46-116); Anion Gap 5 mmol/L (8-16); Aspartate Amino Transferase 15 U/L (15-37); Bilirubin,Total 0.4 mg/dL (0.00-1.00); Blood Urea Nitrogen 18 mg/dL (7-18); Calcium 9.6 mg/dL (8.5-10.1); Carbon Dioxide 34 mmol/L (21-32); Chloride 102 mmol/L (98-108); Estimated Glomerular Filt Rate > 60; Glucose 162 mg/dL (70-99); Osmolality Calculated 297 mOsm/kg (285-295); Potassium 4.6 mmol/L (3.5-5.1); Sodium 141 mmol/L (136-145); Total Protein 6.5 g/dL (6.4-8.2)
== END 2022-11-07 15:27 | disposition home or self-care (01) ==
LOC: CHSLAB 15:28
PROVIDERS: PCP Internal Medicine; Visit Provider Internal Medicine
DX: E13.621 Other specified diabetes mellitus with foot ulcer (principal); M85.871 Other specified disorders of bone density and structure, right ankle and foot
CPT/HCPCS: 36415; 73630; 80053; 83036; 85025; 86140

== ENCOUNTER 2022-11-10 14:06 | Outpatient (CLI) | payer MEDICARE, SELFPAY ==
--- NOTE | ~2022-11-10 | US_ITS ---
EXAMINATION: US arterial ankle brachial ind DATE: 11/10/2022 15:03 INDICATION: Nonhealing diabetic right foot wound TECHNIQUE: Segmental pressures and plethysmographic and Doppler waveforms of the brachial and lower e xtremity arteries were obtained. COMPARISON: None. FINDINGS: Right and left brachial artery pressures of 160 mm Hg and 164 mm Hg, respectively, are concordant (no rmal difference <= 30 mmHg). The right ankle-brachial index (NAHUM) is 0.61 (normal >= 0.9-1.0). The right great toe-brachial index (TBI) is 0.18 (normal >= 0.65). Arterial Doppler waveforms are biphasic with mildly delayed systolic upstrokes at the right dorsalis pedis artery. There is an irregular waveform suggesting bidirectional flow at the right posterior tibial artery. The left NAHUM is 0.91. The left TBI is 0.54. Arterial Doppler waveforms are biphasic with brisk systol ic upstrokes at both left posterior tibial and dorsalis pedis arteries. IMPRESSION: 1. Arterial occlusive disease to the bilateral lower limbs with moderate to severely decreased right NAHUM and TBI and mildly decreased left NAHUM and TBI. Reviewed, dictated and finalized at location A. IMPRESSION: 1. Arterial occlusive disease to the bilateral lower limbs with moderate to sev erely decreased right NAHUM and TBI and mildly decreased left NAHUM and TBI.
== END 2022-11-10 14:07 | disposition home or self-care (01) ==
LOC: CHSIMG 14:08
PROVIDERS: PCP Internal Medicine; Visit Provider Internal Medicine
DX: E11.621 Type 2 diabetes mellitus with foot ulcer (principal); I73.9 Peripheral vascular disease, unspecified
CPT/HCPCS: 93922

== ENCOUNTER 2022-12-08 15:17 | Outpatient (CLI) | payer MEDICARE, SELFPAY ==
[2022-12-08 16:32] LABS: Creatinine Urine 68.03 mg/dL (40-278); MALB Creatinine Ratio 19.1 mg/g (0-30); Microalbumin Urine Random < 13.0 mg/L
[2022-12-08 16:34] LABS: Alanine Aminotransferase 21 U/L (14-59); Albumin Level 3.5 g/dL (3.4-5.0); Alkaline Phosphatase 120 U/L (46-116); Anion Gap 5 mmol/L (8-16); Aspartate Amino Transferase 15 U/L (15-37); Bilirubin,Total 0.4 mg/dL (0.00-1.00); Blood Urea Nitrogen 18 mg/dL (7-18); Calcium 9.2 mg/dL (8.5-10.1); Carbon Dioxide 32 mmol/L (21-32); Chloride 103 mmol/L (98-108); Cholesterol 163 mg/dL (0-200); Estimated Glomerular Filt Rate > 60; Free T3 2.14 pg/mL (2.18-3.98); Free T4 Free Thyroxine 0.89 ng/dL (0.76-1.46); Glucose 129 mg/dL (70-99); HDL Direct 43 mg/dL (40-60); LDL Cholesterol Calculated 100 mg/dL (<130); Osmolality Calculated 293 mOsm/kg (285-295); Potassium 4.3 mmol/L (3.5-5.1); Sodium 140 mmol/L (136-145); Thyroid Stimulating Hormone 4.12 uIU/mL (0.36-3.74); Total Protein 6.2 g/dL (6.4-8.2); Triglycerides 100 mg/dL (0-150)
[2022-12-08 16:53] LABS: Hemoglobin A1C 7.8 % (<5.7)
[2022-12-13 14:16] LABS: C-Peptide 0.83 ng/mL (0.80-3.85)
== END 2022-12-08 15:18 | disposition home or self-care (01) ==
LOC: CHSLAB 15:20
PROVIDERS: PCP Internal Medicine; Visit Provider Internal Medicine Endocrinology, Diabetes & Metabolism
DX: E03.9 Hypothyroidism, unspecified (principal); E13.9 Other specified diabetes mellitus without complications
CPT/HCPCS: 36415; 80053; 80061; 82043; 83036; 84439; 84443; 84481; 84681

== ENCOUNTER 2023-01-23 13:16 | Emergency (ER) | payer MEDICARE, SELFPAY ==
[2023-01-23 13:16] VITALS: BP 142/66; PULSE 100; RESP 20; TEMP 36.2; O2SAT 96
--- NOTE | 2023-01-23 13:31 | ED.EPISTAXIS ---
HPI - Epistaxis General Chief complaint: Epistaxis Stated complaint: nosebleed Time Seen by Provider: 01/23/23 13:28 History of Present Illness HPI Narrative: Patient is a 77 year old female with history of DM, PAD on plavix, here with a nose bleed. She notes that it began around 1:00 AM today on the right side, had been constant since it began until she arrived to the ED. She notes that now seems to have stopped. She is unsure if this is due to the cold air from leaving the house. She denies any trauma however does state that she was itching her nose when it began. Denies any recent illness. Denies any excessive nose blowing. No home oxygen use. She does note that a few weeks ago she had a lower extremity angioplasty performed due to arterial stenosis and was started on plavix at that time. She has a history of some nosebleeds in the past however it has never lasted this long before. Related Data Home Medications Medication Instructions Recorded Confirmed duloxetine 20 mg capsule,delayed 20 mg PO BID 09/27/22 01/23/23 release insulin glargine 100 unit/mL 32 unit subcut BID 09/27/22 01/23/23 subcutaneous solution (Lantus U-100 Insulin) latanoprost 0.005 % eye drops 1 drp RIGHT EYE DAILY 09/27/22 01/23/23 levothyroxine 125 mcg tablet 137 mcg PO DAILY 09/27/22 01/23/23 (Unithroid) lisinopril 40 mg tablet 40 mg PO DAILY 09/27/22 01/23/23 timolol maleate 0.5 % eye drops 10 drp EACH EYE DAILY 09/27/22 01/23/23 verapamil 360 mg 24 hr 360 mg PO DAILY 09/27/22 01/23/23 capsule,extended release aspirin 81 mg tablet,delayed 81 mg PO DAILY 01/23/23 01/23/23 release clopidogrel 75 mg tablet 75 mg PO DAILY 01/23/23 01/23/23 Allergies Allergy/AdvReac Type Severity Reaction Status Date / Time No Known Allergies Allergy Verified 01/23/23 13:31 Review of Systems Review of Systems: All systems reviewed & are unremarkable except as noted in HPI and below PMFSH Past Medical History Medical History Arthritis of left shoulder region Arthritis of shoulder region, right, degenerative Diabetes mellitus Hypertension Hypothyroidism Peripheral neuropathy Social History Social History Smoking status: Never smoker Exam Narrative: GENERAL: Well-appearing, well-nourished, and in no acute distress. HEAD: Normocephalic, atraumatic. EYES: PERRLA and EOMI. ENT: Nares clear. Mucous membranes moist. No active bleeding in nares, no bleeding noted down posterior pharynx. She does have a small amount of scabbing present on the anterior left nasal septum as well as a prominent non bleeding vessel on the middle aspect of the right nares. NECK: Supple. CHEST: Clear to auscultation. No respiratory distress. HEART: Regular rate and rhythm. Normal peripheral pulses. ABDOMEN: Soft, nontender, nondistended. EXTREMITIES: Normal range of motion. No edema. SKIN: Warm, dry, no rash. NEURO: No focal deficits. Alert and oriented x3. PSYCH: Normal mood and affect. Course Course Emergency Course: Chart review performed. Patient here for epistaxis. Triage vitals grossly normal. Prior visits related to toe infections. Patient seen evaluated, in no acute distress. No active bleeding. Small foci of scab noted on the left anterior septum. Quite prominent vessel on the right middle aspect of the nasal septum. Will give afrin and apply silver nitrite. Afrin given in bilateral nares by myself. Small amount of silver nitrite applied to the septum. Monitored for 30 minutes with no recurrence of bleeding. Advised to continue afrin and avoid nose blowing and nose picking. To return if she bleeds again, at which time she may require nasal packing. The results of pertinent diagnostic studies and exam findings were discussed. The patient?s provisional diagnosis and plan of care were discussed with the patient and present family. The pat
[2023-01-23] MEDS: OXYMETAZOLINE HCL 0.05% NAS 15 ML BTL (*BKC) 1 SPRAY NASAL (13:51)
[2023-01-23] MEDS: SILVER NITRATE (*SP) STICK 1 EACH TOPICAL (13:51)
[2023-01-23 14:00] VITALS: BP 112/57; PULSE 95; RESP 18; O2SAT 96
[2023-01-23 14:38] VITALS: BP 127/61; PULSE 88; RESP 16; O2SAT 93
== END 2023-01-23 14:43 | disposition home or self-care (01) ==
PROVIDERS: Emergency Provider Student in an Organized Health Care Education/Training Program; PCP Internal Medicine
DX: R04.0 Epistaxis (principal); E11.9 Type 2 diabetes mellitus without complications; I10 Essential (primary) hypertension; E03.9 Hypothyroidism, unspecified; Z79.4 Long term (current) use of insulin; Z79.899 Other long term (current) drug therapy; Z79.01 Long term (current) use of anticoagulants; Z79.82 Long term (current) use of aspirin
CPT/HCPCS: 99283; A9270

== ENCOUNTER 2023-01-25 12:48 | Emergency (ER) | payer MEDICARE, SELFPAY ==
[2023-01-25 12:49] VITALS: BP 160/64; PULSE 96; RESP 20; TEMP 36.7; O2SAT 97
--- NOTE | 2023-01-25 12:51 | ED.EPISTAXIS ---
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 The patient received Afrin with resolution of epistaxis. The patient presents to the ER with -- recurrence of epistaxis from the right nostril. The patient is putting out large amounts of blood through the right nostril. The patient denies any fever or upper respiratory symptoms. No sinus symptoms. No prior history of epistaxis Other than the 2 days ago. MD complaint: epistaxis Location: right nostril Onset (ago): hour(s) ( Started 4 hours ago) Duration: constant Context: other ( history of Plavix use) Associated symptoms: headache Treatment prior to arrival: nose pinching Related Data Home Medications Medication Instructions Recorded Confirmed duloxetine 20 mg capsule,delayed 20 mg PO BID 09/27/22 01/23/23 release insulin glargine 100 unit/mL 32 unit subcut BID 09/27/22 01/23/23 subcutaneous solution (Lantus U-100 Insulin) latanoprost 0.005 % eye drops 1 drp RIGHT EYE DAILY 09/27/22 01/23/23 levothyroxine 125 mcg tablet 137 mcg PO DAILY 09/27/22 01/23/23 (Unithroid) lisinopril 40 mg tablet 40 mg PO DAILY 09/27/22 01/23/23 timolol maleate 0.5 % eye drops 10 drp EACH EYE DAILY 09/27/22 01/23/23 verapamil 360 mg 24 hr 360 mg PO DAILY 09/27/22 01/23/23 capsule,extended release aspirin 81 mg tablet,delayed 81 mg PO DAILY 01/23/23 01/23/23 release clopidogrel 75 mg tablet 75 mg PO DAILY 01/23/23 01/23/23 Allergies Allergy/AdvReac Type Severity Reaction Status Date / Time No Known Allergies Allergy Verified 01/23/23 13:31 Review of Systems Review of Systems: All systems reviewed & are unremarkable except as noted in HPI and below Constitutional: Constitutional: Reports as per HPI and Reports no additional constitutional complaints Eyes: Eyes: Reports as per HPI and Reports no additional eye complaints ENT: Reports system reviewed and no additional complaints, except as documented, Reports as per HPI and Reports epistaxis Cardiovascular: Cardiovascular: Reports as per HPI and Reports no additional cardiovascular complaints Respiratory: Respiratory: Reports as per HPI and Reports no additional respiratory complaints Gastrointestinal: Gastrointestinal: Reports as per HPI and Reports no additional gastrointestinal complaints Genitourinary: Genitourinary: Reports no additional female genitourinary complaints and Reports as per HPI Musculoskeletal: Musculoskeletal: Reports no additional musculoskeletal complaints Comments: right foot pain. Integumentary/Breasts: Skin/Breast: Reports system reviewed and no additional complaints, except as docu Neurologic: Reports system reviewed and no additional complaints, except as documented and Reports as per HPI Psychiatric: Psychiatric: Reports no additional psychiatric complaints and Reports as per HPI Endocrine: Endocrine: Reports no additional endocrine complaints and Reports as per HPI Hematologic/Lymphatic: Hematologic/Lymphatic: Reports no additional hematologic/lymphatic complaints and Reports as per HPI Allergic/Immunologic: Allergic/Immunologic: Reports no additional allergic/immunologic complaints and Reports as per HPI [facility] Past Medical History Medical History Arthritis of left shoulder region Arthritis of shoulder region, right, degenerative Diabetes mellitus Hypertension Hypothyroidism Peripheral neuropathy Social History Social Hist
[2023-01-25] MEDS: OXYMETAZOLINE HCL 0.05% NAS 15 ML BTL (*BKC) 1 SPRAY NASAL (12:58)
[2023-01-25 13:31] LABS: Basophils Absolute Auto 0.02 K/mm3 (0.00-0.10); Basophils Percent Auto 0.3 % (0.0-1.0); Eosinophils Percent Auto 4.2 % (1.0-6.0); Hematocrit 32.3 % (35.0-42.0); Hemoglobin 10.1 g/dL (11.7-13.8); Immature Granulocyte Absolute 0.04 K/mm3 (0.00-0.00); Immature Granulocyte Percent A 0.6 % (0.0-0.0); Lymphocytes Absolute Auto 0.99 K/mm3 (1.10-4.50); Lymphocytes Percent Auto 13.9 % (18.0-42.0); Mean Corpuscular HGB Conc 31.3 g/dL (32.0-36.0); Mean Corpuscular Volume 92.8 fL (78.0-102.0); Mean Platelet Volume 9.9 fl (9.2-11.8); Monocytes Absolute Auto 0.59 K/mm3 (0.10-0.90); Monocytes Percent Auto 8.3 % (2.0-11.0); Neutrophils Absolute Auto 5.2 K/mm3 (1.7-7.2); Neutrophils Percent Auto 72.7 % (50.0-70.0); Platelet Count Result 277 K/mm3 (150-420); Red Blood Count 3.48 M/mm3 (4.20-5.40); Red Cell Distribution Width 13.4 % (11.6-14.4); White Blood Count 7.1 K/mm3 (4.8-10.8)
[2023-01-25 13:45] LABS: Partial Thromboplastin Time 28.2 SEC (23.90-30.70); Prothrombin Time 10.6 Seconds (9.50-12.10)
[2023-01-25 13:46] LABS: Alanine Aminotransferase 15 U/L (14-59); Albumin Level 2.9 g/dL (3.4-5.0); Alkaline Phosphatase 124 U/L (46-116); Anion Gap 11 mmol/L (8-16); Aspartate Amino Transferase < 10 U/L (15-37); Bilirubin,Total 0.4 mg/dL (0.00-1.00); Blood Urea Nitrogen 16 mg/dL (7-18); Carbon Dioxide 26 mmol/L (21-32); Chloride 103 mmol/L (98-108); Estimated CRCL calculation 59 ml/min; Estimated Glomerular Filt Rate > 60; Glucose 306 mg/dL (70-99); Osmolality Calculated 303 mOsm/kg (285-295); Sodium 140 mmol/L (136-145); Total Protein 6.2 g/dL (6.4-8.2)
[2023-01-25 14:03] VITALS: BP 147/53; PULSE 97; RESP 20; TEMP 37.1; O2SAT 94
[2023-01-25 14:18] VITALS: BP 131/72; PULSE 99; RESP 20; O2SAT 99
== END 2023-01-25 14:30 | disposition home or self-care (01) ==
PROVIDERS: Emergency Provider Internal Medicine Critical Care Medicine; PCP Internal Medicine
DX: R04.0 Epistaxis (principal); E11.9 Type 2 diabetes mellitus without complications; I10 Essential (primary) hypertension; E03.9 Hypothyroidism, unspecified; Z79.4 Long term (current) use of insulin; Z79.82 Long term (current) use of aspirin
CPT/HCPCS: 30901; 36415; 80053; 85025; 85610; 85730; 99283; A9270

== ENCOUNTER 2023-01-26 14:35 | Emergency (ER) | payer MEDICARE, SELFPAY ==
[2023-01-26 14:35] VITALS: BP 188/69; PULSE 82; RESP 20; TEMP 36.6; O2SAT 100
--- NOTE | 2023-01-26 14:43 | ED.EPISTAXIS ---
HPI - Epistaxis General Stated complaint: rhino rocket removal Time Seen by Provider: 01/26/23 14:43 Source: patient Mode of arrival: wheelchair Limitations: no limitations History of Present Illness HPI Narrative: This is a 77-year-old female with a history of CAD currently on Plavix and was seen yesterday with a nose bleed / epistaxis from the right nostril and had a rhino rocket placed. Patient presents today for removal of rhino rocket and to evaluate any further epistaxis. Left nostril appears intact with no bleeding. Patient has had her Plavix on hold for the last couple of days. Location: right nostril Onset (ago): day(s) Duration: now resolved Context: other anticoagulant use Related Data Home Medications Medication Instructions Recorded Confirmed duloxetine 20 mg capsule,delayed 20 mg PO BID 09/27/22 01/23/23 release insulin glargine 100 unit/mL 32 unit subcut BID 09/27/22 01/23/23 subcutaneous solution (Lantus U-100 Insulin) latanoprost 0.005 % eye drops 1 drp RIGHT EYE DAILY 09/27/22 01/23/23 levothyroxine 125 mcg tablet 137 mcg PO DAILY 09/27/22 01/23/23 (Unithroid) lisinopril 40 mg tablet 40 mg PO DAILY 09/27/22 01/23/23 timolol maleate 0.5 % eye drops 10 drp EACH EYE DAILY 09/27/22 01/23/23 verapamil 360 mg 24 hr 360 mg PO DAILY 09/27/22 01/23/23 capsule,extended release aspirin 81 mg tablet,delayed 81 mg PO DAILY 01/23/23 01/23/23 release clopidogrel 75 mg tablet 75 mg PO DAILY 01/23/23 01/23/23 Allergies Allergy/AdvReac Type Severity Reaction Status Date / Time No Known Allergies Allergy Verified 01/23/23 13:31 Review of Systems Review of Systems: All systems reviewed & are unremarkable except as noted in HPI and below PMFSH Past Medical History Medical History Arthritis of left shoulder region Arthritis of shoulder region, right, degenerative Diabetes mellitus Hypertension Hypothyroidism Peripheral neuropathy Social History Social History Smoking status: Never smoker Exam Const: General: healthy appearing and no acute distress Nutritional Appearance: well nourished Orientation/consciousness: patient oriented x3 Limitations: no limitations HENMT: Other: Crusty discharge around the right nostril but no oozing or bleeding from the right nostril through the rhino rocket site no bleeding from the left nostril. Resp: Effort & Inspection: normal respiratory effort Auscultation: clear to auscultation bilaterally Cardio: Rate: regular rate Rhythm: regular rhythm Skin: General skin exam: normal color Neuro: General: patient oriented x3 Course Course Emergency Course: Patient evaluated for epistaxis and removal of rhino rocket from the right nostril after removal there is no current bleeding. Advised patient to follow with Cardiology/primary care further evaluation. Critical Care Time Critical Care Time Critical Care Time: No Discharge Plan Discharge Clinical Impression: Epistaxis Patient Disposition: Home, Self-Care Condition: Stable Instructions: Antibiotic Form, Nosebleed (ED) Additional Instructions: advised patient follow with Primary/ aquarium tank attendant for further evaluation treatment. Prescriptions: No Action latanoprost 0.005 % drops 1 drp RIGHT EYE DAILY insulin glargine [Lantus U-100 Insulin] 100 unit/mL solution 32 unit SUBCUT BID verapamil 360 mg capsule,ext rel. pellets 24 hr 360 mg PO DAILY levothyroxine [Unithroid] 125 mcg tablet 137 mcg PO DAILY timolol maleate 0.5 % drops 10 drp EACH EYE DAILY lisinopril 40 mg tablet 40 mg PO DAILY duloxetine 20 mg capsule,delayed release(DR/EC) 20 mg PO BID clopidogrel 75 mg tablet 75 mg PO DAILY aspirin 81 mg tablet,delayed release (DR/EC) 81 mg PO DAILY oxymetazoline [Afrin Sinus (oxymetazoline)] 0.05
--- NOTE | 2023-01-26 14:50 | PC.NURSE ---
ERP AT BEDSIDE, RHINO ROCKET REMOVED, PATIENT TOLERATED WELL. PATIENT PROVIDED MOIST GAUZE TO PLACE AT TIP OF NOSE TO LOOSEN DRIED BLOOD. NO BLOOD DRIPPING FROM NARES AT THIS TIME.
[2023-01-26 15:25] VITALS: BP 188/69; PULSE 82; RESP 20; TEMP 36.6; O2SAT 100
== END 2023-01-26 15:25 | disposition home or self-care (01) ==
LOC: CHSED 14:57
PROVIDERS: Emergency Provider Emergency Medicine; PCP Internal Medicine
DX: R04.0 Epistaxis (principal); I25.10 Atherosclerotic heart disease of native coronary artery without angina pectoris; E11.9 Type 2 diabetes mellitus without complications; E03.9 Hypothyroidism, unspecified; I10 Essential (primary) hypertension; Z79.01 Long term (current) use of anticoagulants; Z79.4 Long term (current) use of insulin
CPT/HCPCS: 99282

== ENCOUNTER 2023-01-31 16:22 | Outpatient (CLI) | payer MEDICARE, SELFPAY ==
[2023-01-31 17:08] LABS: Alanine Aminotransferase 20 U/L (14-59); Alkaline Phosphatase 137 U/L (46-116); Aspartate Amino Transferase 12 U/L (15-37); Bilirubin Direct 0.1 mg/dL (0-0.2); Bilirubin,Total 0.4 mg/dL (0.00-1.00); Cholesterol 134 mg/dL (0-200); HDL Direct 42 mg/dL (40-60); LDL Cholesterol Calculated 73 mg/dL (<130); Total Protein 6.1 g/dL (6.4-8.2); Triglycerides 97 mg/dL (0-150)
== END 2023-01-31 16:23 | disposition home or self-care (01) ==
LOC: CHSLAB 16:26
PROVIDERS: PCP Internal Medicine
DX: E78.5 Hyperlipidemia, unspecified (principal)
CPT/HCPCS: 36415; 80061; 80076

== ENCOUNTER 2023-02-14 15:17 | Outpatient (CLI) | payer MEDICARE, SELFPAY ==
[2023-02-14 15:48] LABS: Basophils Absolute Auto 0.03 K/mm3 (0.00-0.10); Basophils Percent Auto 0.5 % (0.0-1.0); Eosinophils Absolute Auto 0.25 K/mm3 (0.02-0.50); Eosinophils Percent Auto 4.1 % (1.0-6.0); Hematocrit 33.4 % (35.0-42.0); Hemoglobin 10.4 g/dL (11.7-13.8); Immature Granulocyte Absolute 0.02 K/mm3 (0.00-0.00); Immature Granulocyte Percent A 0.3 % (0.0-0.0); Lymphocytes Absolute Auto 1.01 K/mm3 (1.10-4.50); Lymphocytes Percent Auto 16.5 % (18.0-42.0); Mean Corpuscular HGB Conc 31.1 g/dL (32.0-36.0); Mean Corpuscular Hemoglobin 27.8 pg (27.0-31.0); Mean Corpuscular Volume 89.3 fL (78.0-102.0); Mean Platelet Volume 9.4 fl (9.2-11.8); Monocytes Absolute Auto 0.53 K/mm3 (0.10-0.90); Monocytes Percent Auto 8.7 % (2.0-11.0); Neutrophils Absolute Auto 4.3 K/mm3 (1.7-7.2); Neutrophils Percent Auto 69.9 % (50.0-70.0); Platelet Count Result 348 K/mm3 (150-420); Red Blood Count 3.74 M/mm3 (4.20-5.40); Red Cell Distribution Width 13.5 % (11.6-14.4); White Blood Count 6.1 K/mm3 (4.8-10.8)
[2023-02-14 16:44] LABS: Alanine Aminotransferase 22 U/L (14-59); Albumin Level 2.8 g/dL (3.4-5.0); Alkaline Phosphatase 162 U/L (46-116); Anion Gap 8 mmol/L (8-16); Aspartate Amino Transferase 10 U/L (15-37); Bilirubin,Total 0.5 mg/dL (0.00-1.00); Blood Urea Nitrogen 13 mg/dL (7-18); Carbon Dioxide 30 mmol/L (21-32); Chloride 101 mmol/L (98-108); Estimated Glomerular Filt Rate > 60; Ferritin 21 ng/mL (8-252); Glucose 177 mg/dL (70-99); Iron 16 ug/dL (50-170); Osmolality Calculated 292 mOsm/kg (285-295); Percent Iron Saturation 5 % (12-57); Potassium 3.9 mmol/L (3.5-5.1); Sodium 139 mmol/L (136-145); Total Protein 6.2 g/dL (6.4-8.2)
[2023-02-14 16:45] LABS: Folic Acid > 20.0 ng/mL (8.6->20); Vitamin B12 > 2000 pg/mL (193-986)
== END 2023-02-14 15:18 | disposition home or self-care (01) ==
PROVIDERS: PCP Internal Medicine; Visit Provider Internal Medicine Hematology & Oncology
DX: D64.9 Anemia, unspecified (principal)
CPT/HCPCS: 36415; 80053; 82607; 82728; 82746; 83540; 83550; 85025

== ENCOUNTER 2023-02-24 15:03 | Outpatient (CLI) | payer MEDICARE, SELFPAY ==
--- NOTE | ~2023-02-24 | US_ITS ---
EXAMINATION: US venous doppler [facility] DATE: 02/24/2023 15:49 INDICATION: Bilateral lower limb swelling with pitting edema at the calves TECHNIQUE: Grayscale ultrasound images without and with compression and Doppler ultrasound images of the bilateral lower extremity veins were obtained. COMPARISON: None. FINDINGS: The visualized portions of right common femoral vein, profunda (deep) femoral vein, femoral vein, pop liteal vein, posterior tibial veins, peroneal veins, gastrocnemius vein and greater saphenous vein ou tflow are patent. The visualized portions of left common femoral vein, profunda femoral vein, femoral vein, popliteal v ein, posterior tibial veins, peroneal veins, gastrocnemius vein and greater saphenous vein outflow ar e patent. IMPRESSION: 1. No deep venous thrombosis in either lower limb. Reviewed, dictated and finalized at location A. UNICATIONS ATTENDANT
[2023-02-24 15:32] LABS: Basophils Absolute Auto 0.03 K/mm3 (0.00-0.10); Basophils Percent Auto 0.5 % (0.0-1.0); Eosinophils Absolute Auto 0.18 K/mm3 (0.02-0.50); Eosinophils Percent Auto 3.1 % (1.0-6.0); Hematocrit 33.1 % (35.0-42.0); Hemoglobin 10.3 g/dL (11.7-13.8); Immature Granulocyte Absolute 0.02 K/mm3 (0.00-0.00); Immature Granulocyte Percent A 0.3 % (0.0-0.0); Lymphocytes Absolute Auto 1.03 K/mm3 (1.10-4.50); Mean Corpuscular HGB Conc 31.1 g/dL (32.0-36.0); Mean Corpuscular Hemoglobin 27.2 pg (27.0-31.0); Mean Corpuscular Volume 87.3 fL (78.0-102.0); Monocytes Absolute Auto 0.51 K/mm3 (0.10-0.90); Monocytes Percent Auto 8.9 % (2.0-11.0); Neutrophils Percent Auto 69.2 % (50.0-70.0); Platelet Count Result 319 K/mm3 (150-420); Red Blood Count 3.79 M/mm3 (4.20-5.40); Red Cell Distribution Width 13.9 % (11.6-14.4); White Blood Count 5.7 K/mm3 (4.8-10.8)
[2023-02-24 15:52] LABS: D Dimer 2.32 mg/L (0.19-0.50)
[2023-02-24 15:56] LABS: Alanine Aminotransferase 24 U/L (14-59); Albumin Level 3.1 g/dL (3.4-5.0); Alkaline Phosphatase 172 U/L (46-116); Anion Gap 4 mmol/L (8-16); Aspartate Amino Transferase 14 U/L (15-37); Bilirubin,Total 0.5 mg/dL (0.00-1.00); Blood Urea Nitrogen 18 mg/dL (7-18); CRP 0.5 mg/dL (0.0-0.9); Calcium 9.6 mg/dL (8.5-10.1); Carbon Dioxide 33 mmol/L (21-32); Chloride 101 mmol/L (98-108); Estimated Glomerular Filt Rate > 60; Glucose 287 mg/dL (70-99); NT Pro B Type Natriuretic Pept 111 pg/mL (0-450); Osmolality Calculated 297 mOsm/kg (285-295); Potassium 3.9 mmol/L (3.5-5.1); Sodium 138 mmol/L (136-145)
== END 2023-02-24 15:04 | disposition home or self-care (01) ==
LOC: CHSLAB 15:08
PROVIDERS: PCP Internal Medicine; Visit Provider Internal Medicine
DX: R06.00 Dyspnea, unspecified (principal); M79.89 Other specified soft tissue disorders
CPT/HCPCS: 36415; 80053; 83880; 85025; 85380; 86140; 93970

== ENCOUNTER 2023-03-10 16:22 | Outpatient (CLI) | payer MEDICARE, SELFPAY ==
[2023-03-10 17:01] LABS: Basophils Absolute Auto 0.03 K/mm3 (0.00-0.10); Basophils Percent Auto 0.5 % (0.0-1.0); Eosinophils Absolute Auto 0.15 K/mm3 (0.02-0.50); Eosinophils Percent Auto 2.6 % (1.0-6.0); Hematocrit 37.1 % (35.0-42.0); Hemoglobin 11.5 g/dL (11.7-13.8); Immature Granulocyte Absolute 0.01 K/mm3 (0.00-0.00); Immature Granulocyte Percent A 0.2 % (0.0-0.0); Lymphocytes Absolute Auto 1.21 K/mm3 (1.10-4.50); Lymphocytes Percent Auto 20.8 % (18.0-42.0); Mean Corpuscular Hemoglobin 26.7 pg (27.0-31.0); Mean Corpuscular Volume 86.3 fL (78.0-102.0); Mean Platelet Volume 10.1 fl (9.2-11.8); Monocytes Absolute Auto 0.59 K/mm3 (0.10-0.90); Monocytes Percent Auto 10.2 % (2.0-11.0); Neutrophils Absolute Auto 3.8 K/mm3 (1.7-7.2); Neutrophils Percent Auto 65.7 % (50.0-70.0); Platelet Count Result 316 K/mm3 (150-420); Red Cell Distribution Width 15.6 % (11.6-14.4); White Blood Count 5.8 K/mm3 (4.8-10.8)
[2023-03-10 17:21] LABS: Alanine Aminotransferase 23 U/L (14-59); Albumin Level 3.3 g/dL (3.4-5.0); Alkaline Phosphatase 145 U/L (46-116); Anion Gap 7 mmol/L (8-16); Aspartate Amino Transferase 14 U/L (15-37); Bilirubin,Total 0.5 mg/dL (0.00-1.00); Blood Urea Nitrogen 17 mg/dL (7-18); Calcium 9.3 mg/dL (8.5-10.1); Carbon Dioxide 33 mmol/L (21-32); Chloride 101 mmol/L (98-108); Estimated Glomerular Filt Rate > 60; Glucose 123 mg/dL (70-99); Magnesium 1.8 mg/dL (1.8-2.4); Osmolality Calculated 294 mOsm/kg (285-295); Potassium 3.7 mmol/L (3.5-5.1); Sodium 141 mmol/L (136-145); Total Protein 7.2 g/dL (6.4-8.2)
== END 2023-03-10 16:23 | disposition home or self-care (01) ==
LOC: CHSLAB 16:24
PROVIDERS: PCP Internal Medicine; Visit Provider Internal Medicine
DX: Z79.899 Other long term (current) drug therapy (principal)
CPT/HCPCS: 36415; 80053; 83735; 85025

== ENCOUNTER 2023-05-25 14:34 | Outpatient (CLI) | payer MEDICARE, SELFPAY ==
[2023-05-25 14:57] LABS: Basophils Absolute Auto 0.03 K/mm3 (0.00-0.10); Basophils Percent Auto 0.5 % (0.0-1.0); Eosinophils Percent Auto 3.4 % (1.0-6.0); Hematocrit 43.1 % (35.0-42.0); Hemoglobin 13.5 g/dL (11.7-13.8); Immature Granulocyte Absolute 0.02 K/mm3 (0.00-0.00); Immature Granulocyte Percent A 0.3 % (0.0-0.0); Lymphocytes Absolute Auto 1.42 K/mm3 (1.10-4.50); Lymphocytes Percent Auto 24.1 % (18.0-42.0); Mean Corpuscular HGB Conc 31.3 g/dL (32.0-36.0); Mean Corpuscular Hemoglobin 27.4 pg (27.0-31.0); Mean Corpuscular Volume 87.6 fL (78.0-102.0); Mean Platelet Volume 9.8 fl (9.2-11.8); Monocytes Absolute Auto 0.42 K/mm3 (0.10-0.90); Monocytes Percent Auto 7.1 % (2.0-11.0); Neutrophils Absolute Auto 3.8 K/mm3 (1.7-7.2); Neutrophils Percent Auto 64.6 % (50.0-70.0); Platelet Count Result 240 K/mm3 (150-420); Red Blood Count 4.92 M/mm3 (4.20-5.40); Red Cell Distribution Width 18.4 % (11.6-14.4); White Blood Count 5.9 K/mm3 (4.8-10.8)
[2023-05-25 15:24] LABS: Hemoglobin A1C 9.4 % (<5.7)
[2023-05-25 16:00] LABS: Alanine Aminotransferase 23 U/L (14-59); Albumin Level 3.5 g/dL (3.4-5.0); Alkaline Phosphatase 129 U/L (46-116); Anion Gap 7 mmol/L (8-16); Aspartate Amino Transferase 25 U/L (15-37); Bilirubin,Total 0.4 mg/dL (0.00-1.00); Blood Urea Nitrogen 17 mg/dL (7-18); Calcium 9.2 mg/dL (8.5-10.1); Carbon Dioxide 32 mmol/L (21-32); Chloride 103 mmol/L (98-108); Cholesterol 165 mg/dL (0-200); Estimated Glomerular Filt Rate > 60; Ferritin 83 ng/mL (8-252); Glucose 155 mg/dL (70-99); HDL Direct 48 mg/dL (40-60); Iron 72 ug/dL (50-170); LDL Cholesterol Calculated 94 mg/dL (<130); Osmolality Calculated 298 mOsm/kg (285-295); Percent Iron Saturation 23 % (12-57); Potassium 4.2 mmol/L (3.5-5.1); Sodium 142 mmol/L (136-145); Thyroid Stimulating Hormone 1.08 uIU/mL (0.36-3.74); Total Protein 6.6 g/dL (6.4-8.2); Triglycerides 113 mg/dL (0-150)
[2023-05-25 16:01] LABS: Folic Acid > 20.0 ng/mL (8.6->20); Vitamin B12 > 2000 pg/mL (193-986)
== END 2023-05-25 14:35 | disposition home or self-care (01) ==
LOC: CHSLAB 14:39
PROVIDERS: PCP Internal Medicine; Visit Provider Internal Medicine Hematology & Oncology
DX: E11.9 Type 2 diabetes mellitus without complications (principal); I73.9 Peripheral vascular disease, unspecified; D64.9 Anemia, unspecified
CPT/HCPCS: 36415; 80053; 80061; 82607; 82728; 82746; 83036; 83540; 83550; 83735; 84443; 85025

== ENCOUNTER 2023-08-23 16:58 | Outpatient (CLI) | payer MEDICARE, SELFPAY ==
[2023-08-23 17:27] LABS: Hematocrit 40.4 % (35.0-42.0); Mean Corpuscular HGB Conc 32.2 g/dL (32-36); Mean Corpuscular Hemoglobin 30.2 pg (27.0-31.0); Mean Platelet Volume 9.8 fl (9.2-11.8); Platelet Count Result 285 K/mm3 (150-420); White Blood Count 8.4 K/mm3 (4.8-10.8)
[2023-08-23 18:07] LABS: Ferritin 85 ng/mL (8-252); Iron 42 ug/dL (50-170); Percent Iron Saturation 14 % (12-57)
[2023-08-23 18:09] LABS: Folic Acid > 20.0 ng/mL (8.6->20); Vitamin B12 > 2000 pg/mL (193-986)
== END 2023-08-23 16:59 | disposition home or self-care (01) ==
LOC: CHSLAB 17:01
PROVIDERS: PCP Internal Medicine; Visit Provider Internal Medicine Hematology & Oncology
DX: D64.9 Anemia, unspecified (principal)
CPT/HCPCS: 36415; 82607; 82728; 82746; 83540; 83550; 85027

== ENCOUNTER 2023-09-05 15:23 | Outpatient (CLI) | payer MEDICARE, SELFPAY ==
[2023-09-05 16:10] LABS: Hemoglobin A1C 8.4 % (<5.7)
[2023-09-05 16:43] LABS: Alanine Aminotransferase 14 U/L (14-59); Albumin Level 3.3 g/dL (3.4-5.0); Alkaline Phosphatase 133 U/L (46-116); Anion Gap 8 mmol/L (4-12); Aspartate Amino Transferase 19 U/L (15-37); Bilirubin,Total 0.6 mg/dL (0.00-1.00); Blood Urea Nitrogen 19 mg/dL (7-18); Carbon Dioxide 31 mmol/L (21-32); Chloride 103 mmol/L (98-108); Estimated Glomerular Filt Rate > 60; Glucose 309 mg/dL (70-99); Magnesium 1.8 mg/dL (1.8-2.4); Osmolality Calculated 308 mOsm/kg (285-295); Potassium 4.3 mmol/L (3.5-5.1); Sodium 142 mmol/L (136-145); Thyroid Stimulating Hormone 0.08 uIU/mL (0.36-3.74); Total Protein 6.4 g/dL (6.4-8.2)
== END 2023-09-05 15:24 | disposition home or self-care (01) ==
LOC: CHSLAB 15:25
PROVIDERS: PCP Internal Medicine; Visit Provider Internal Medicine
DX: E11.9 Type 2 diabetes mellitus without complications (principal); Z79.899 Other long term (current) drug therapy
CPT/HCPCS: 36415; 80053; 83036; 83735; 84443

== ENCOUNTER 2023-10-09 16:49 | Outpatient (CLI) | payer MEDICARE, SELFPAY ==
[2023-10-09 17:16] LABS: Basophils Absolute Auto 0.02 K/mm3 (0.00-0.10); Basophils Percent Auto 0.3 % (0.0-1.0); Eosinophils Absolute Auto 0.18 K/mm3 (0.02-0.50); Eosinophils Percent Auto 2.7 % (1.0-6.0); Hematocrit 39.7 % (35.0-42.0); Hemoglobin 13.1 g/dL (11.7-13.8); Immature Granulocyte Absolute 0.03 K/mm3 (0.00-0.00); Immature Granulocyte Percent A 0.5 % (0.0-0.0); Lymphocytes Absolute Auto 1.31 K/mm3 (1.10-4.50); Mean Corpuscular Hemoglobin 30.8 pg (27.0-31.0); Mean Corpuscular Volume 93.2 fL (78.0-102.0); Mean Platelet Volume 9.9 fl (9.2-11.8); Monocytes Absolute Auto 0.58 K/mm3 (0.10-0.90); Monocytes Percent Auto 8.9 % (2.0-11.0); Neutrophils Absolute Auto 4.43 K/mm3 (1.70-7.20); Neutrophils Percent Auto 67.6 % (50.0-70.0); Platelet Count Result 267 K/mm3 (150-420); Red Blood Count 4.26 M/mm3 (4.20-5.40); Red Cell Distribution Width 12.7 % (11.6-14.4); White Blood Count 6.6 K/mm3 (4.8-10.8)
[2023-10-09 18:05] LABS: Alanine Aminotransferase 21 U/L (14-59); Albumin Level 3.3 g/dL (3.4-5.0); Alkaline Phosphatase 101 U/L (46-116); Anion Gap 8 mmol/L (4-12); Aspartate Amino Transferase 14 U/L (15-37); Bilirubin,Total 0.5 mg/dL (0.00-1.00); Blood Urea Nitrogen 18 mg/dL (7-18); Calcium 9.1 mg/dL (8.5-10.1); Carbon Dioxide 30 mmol/L (21-32); Chloride 101 mmol/L (98-108); Estimated Glomerular Filt Rate > 60; Ferritin 65 ng/mL (8-252); Glucose 237 mg/dL (70-99); Iron 78 ug/dL (50-170); Osmolality Calculated 297 mOsm/kg (285-295); Percent Iron Saturation 26 % (12-57); Sodium 139 mmol/L (136-145); Total Protein 6.4 g/dL (6.4-8.2)
[2023-10-09 18:08] LABS: Folic Acid > 20.0 ng/mL (8.6->20); Vitamin B12 > 2000 pg/mL (193-986)
== END 2023-10-09 16:50 | disposition home or self-care (01) ==
LOC: CHSLAB 16:52
PROVIDERS: PCP Internal Medicine; Visit Provider Nurse Practitioner Family
DX: D64.9 Anemia, unspecified (principal)
CPT/HCPCS: 36415; 80053; 82607; 82728; 82746; 83540; 83550; 85025

== ENCOUNTER 2024-02-29 15:47 | Emergency (ER) | payer MEDICARE, SELFPAY ==
[2024-02-29] VITALS (11 sets, daily range): BP systolic 132–165; BP diastolic 68–104; PULSE 72–81; RESP 16–18; TEMP 36.3–37; O2SAT 96–100
--- NOTE | ~2024-02-29 | CT_ITS ---
EXAMINATION: CT abdomen pelvis w con DATE: 02/29/2024 17:27 INDICATION: Gastrointestinal hemorrhage. TECHNIQUE: Computed tomography (CT) of the abdomen and pelvis was performed with 100 mL Omnipaque 350 intravenous contrast. Automated exposure control and iterative reconstruction technique were employe d. The dose-length product was 533.88 mGy-cm. COMPARISON: None. FINDINGS: The visualized portions of the lung bases demonstrate mild atelectasis. No pleural effusion . The heart size is normal. No pericardial effusion. There is a moderate-sized sliding hiatal hernia. The liver is normal. There are gallstones in the gallbladder, which is normal in size. The spleen, p ancreas, and adrenal glands are normal. There is cortical thinning of the kidneys. There are cysts in the kidneys measuring up to 6 mm. There are scattered diverticula in the colon. There is wall thicke charisma of the sigmoid colon. The appendix is normal. There is calcified atherosclerosis of the aorta an d many of the other arteries. There are no pathologically enlarged lymph nodes. There is no free intr aperitoneal fluid. There is a large widemouthed ventral hernia containing bowel. There is severe lumb ar spondylosis. Thoracolumbar levoscoliosis is noted. IMPRESSION: 1. Wall thickening of the sigmoid colon, consistent with colitis. 2. Moderate-sized sliding hiatal hernia. 3. Large widemouthed ventral hernia containing bowel. Reviewed, dictated and finalized at location A. IT UNION EXAMINER
--- NOTE | 2024-02-29 16:20 | PC.NURSE ---
Set up stool occult procedure, assisted Dr. anthony/ procedure
[2024-02-29 16:29] LABS: Occult Blood Positive (Negative)
[2024-02-29 16:35] LABS: Basophils Absolute Auto 0.03 K/mm3 (0.00-0.10); Basophils Percent Auto 0.6 % (0.0-1.0); Eosinophils Absolute Auto 0.11 K/mm3 (0.02-0.50); Eosinophils Percent Auto 2.2 % (1.0-6.0); Immature Granulocyte Absolute 0.08 K/mm3 (0.00-0.00); Immature Granulocyte Percent A 1.6 % (0.0-0.0); Lymphocytes Absolute Auto 1.11 K/mm3 (1.10-4.50); Lymphocytes Percent Auto 21.8 % (18.0-42.0); Mean Corpuscular HGB Conc 33.3 g/dL (32-36); Mean Corpuscular Hemoglobin 31.6 pg (27.0-31.0); Mean Corpuscular Volume 94.8 fL (78.0-102.0); Mean Platelet Volume 9.7 fl (9.2-11.8); Monocytes Absolute Auto 0.34 K/mm3 (0.10-0.90); Monocytes Percent Auto 6.7 % (2.0-11.0); Neutrophils Absolute Auto 3.42 K/mm3 (1.70-7.20); Neutrophils Percent Auto 67.1 % (50.0-70.0); Platelet Count Result 278 K/mm3 (150-420); Red Blood Count 3.48 M/mm3 (4.20-5.40); Red Cell Distribution Width 13.3 % (11.6-14.4); White Blood Count 5.1 K/mm3 (4.8-10.8)
[2024-02-29] MEDS: PANTOPRAZOLE SODIUM IV 40 MG VIAL 80 MG IV PUSH (16:37)
[2024-02-29] MEDS: SODIUM CHLORIDE 0.9% IV 1,000 ML 999 ML IV CONT (16:38)
[2024-02-29 16:49] LABS: Partial Thromboplastin Time 25.7 Sec (23.9-30.70); Prothrombin Time 10.7 Seconds (9.50-12.1)
[2024-02-29 16:51] LABS: Alanine Aminotransferase 114 U/L (14-59); Alkaline Phosphatase 206 U/L (46-116); Ammonia 19 umol/L (11-32); Anion Gap 6 mmol/L (4-12); Aspartate Amino Transferase 18 U/L (15-37); Bilirubin,Total 0.7 mg/dL (0.00-1.00); Blood Urea Nitrogen 17 mg/dL (7-18); Calcium 8.9 mg/dL (8.5-10.1); Carbon Dioxide 31 mmol/L (21-32); Chloride 105 mmol/L (98-108); Estimated CRCL calculation 47 ml/min; Estimated Glomerular Filt Rate > 60; Glucose 217 mg/dL (70-99); Osmolality Calculated 302 mOsm/kg (285-295); Potassium 3.5 mmol/L (3.5-5.1); Sodium 142 mmol/L (136-145); Total Protein 6.1 g/dL (6.4-8.2)
[2024-02-29 16:53] LABS: Lactic Acid Reflex 0.9 mmol/L (0.4-2.0)
--- NOTE | 2024-02-29 17:44 | ED.GIBLEED ---
HPI - GI Bleed General Chief complaint: GI Bleed Stated complaint: blood in rectum Source: patient and family Mode of arrival: wheelchair Limitations: no limitations History of Present Illness HPI Narrative: This is a 79-year-old female with a history of coronary artery disease diabetes hypothyroidism and hypertension is currently on aspirin and Plavix that for the last 3 days has been having bright red blood per rectum with initially some intermittent clots. Patient has some mild abdominal discomfort with no nausea vomiting no chest pain no shortness of breath no fever chills. MD complaint: gross hematochezia Onset (ago): day(s) Pain Consistency: constant Severity: moderate Related Data Home Medications Medication Instructions Recorded Confirmed duloxetine 20 mg capsule,delayed 20 mg PO BID 09/27/22 02/29/24 release insulin glargine 100 unit/mL 32 unit subcut BID 09/27/22 02/29/24 subcutaneous solution (Lantus U-100 Insulin) latanoprost 0.005 % eye drops 1 drp RIGHT EYE DAILY 09/27/22 02/29/24 levothyroxine 125 mcg tablet 137 mcg PO DAILY 09/27/22 02/29/24 (Unithroid) lisinopril 40 mg tablet 40 mg PO DAILY 09/27/22 02/29/24 timolol maleate 0.5 % eye drops 10 drp EACH EYE DAILY 09/27/22 02/29/24 verapamil 360 mg 24 hr 360 mg PO DAILY 09/27/22 02/29/24 capsule,extended release clopidogrel 75 mg tablet 75 mg PO DAILY 01/23/23 02/29/24 torsemide 10 mg tablet 10 mg PO QAM 02/27/23 02/29/24 aspirin 81 mg tablet,delayed 81 mg PO DAILY 02/29/24 02/29/24 release pen needle, diabetic 31 gauge x 02/29/24 02/29/24 3/16 (BD Ultra-Fine Mini Pen Needle) Allergies Allergy/AdvReac Type Severity Reaction Status Date / Time No Known Allergies Allergy Verified 02/29/24 17:22 Review of Systems Review of Systems: All systems reviewed & are unremarkable except as noted in HPI and below PMFSH Past Medical History Medical History Arthritis of left shoulder region Arthritis of shoulder region, right, degenerative Diabetes mellitus Hypertension Hypothyroidism Peripheral neuropathy Surgical History Surgical History H/O angioplasty Family History Family History Father Diabetes mellitus Heart disease Mother Cancer Hypertension Heart disease Thyroid disorder Cerebrovascular accident Sibling Hypertension Other Hypertension Heart disease Cerebrovascular accident Grandparent Cancer Social History Social History Smoking status: Never smoker Alcohol intake: never Substance use: never Substance use type: does not use Do You Feel Safe in your Home?: Yes Lack of Transportation: No Lack of Food: Never True Current Housing: I Have Housing Concerned About Future Housing: No Difficulty Paying Gas/Electric Bills: No Difficulty Paying for Meds: No Currently Unemployed: No Education: High School Diploma/GED Difficulty w/ Childcare or Family Care: No Spiritual care concerns: Yes Exam Const: General: no acute distress Nutritional Appearance: well nourished Orientation/consciousness: patient oriented x3 Limitations: no limitations Eyes: Conjunctivae: conjunctivae normal Neck: Neck: normal visual inspection Chest: Chest palpation & inspection: normal inspection of the chest Resp: Effort & Inspection: normal respiratory effort Auscultation: clear to auscultation bilaterally Cardio: Rate: regular rate Rhythm: regular rhythm GI: GI Palp: Yes Soft to palpation Auscultation: normal bowel sounds Rectal Exam: normal sphincter tone and heme positive stool : General: Yes bladder normal to palpation Urinary Catheter: Urinary Catheter: patent and draining Back/Spine/Pelvis: Back: no CVA tenderness Skin: General skin exam: normal color Rashes: no rashes Wounds: no wounds Neuro: General: patient oriented x3, moves all extremities, no meningeal signs and no focal motor deficits Course Course Emergency Course: patient had positive guaiac, with rectal bleeding for the last 3 days H&H is 11 and 33 and her baseline was 14 and 40 H&H. Her BUN 17 creatinine 0.77, lactate is 0.9 with ammonia level of 19. Patient had a CT scan which showed some sigmoid wall thickening consistent with colitis and patient received IV fluids IV Protonix and started on IV Cipro and Flagyl. Vital Signs Vital signs: Vital Signs Oxygen Delivery Room Air 02/29/24 15:47 Temperature 37.0 C 02/29/24 22:12 Pulse Rate 73 11/21/24 22:12 Respiratory Rate 18 02/29/24 22:12 Blood Pressure 140/68 02/29/24 22:12 Pulse Oximetry 97 02/29/24 22:12 Oxygen Delivery Room Air 02/29/24 22:12 MDM - GI Bleed Lab Data 02/29/24 16:23 02/29/24 16:23 Labs: Lab Results 02/29/24 02/29/24 02/29/24 Range/Units 16:12 16:23 21:59 WBC 5.1 (4.8-10.8) K/mm3 RBC 3.48 L (4.20-5.40) M/mm3 Hgb 11.0 L (11.7-13.8) g/dL Hct 33.0 L (35.0-42.0) % MCV 94.8 (78.0-102.0) fL MCH 31.6 H (27.0-31.0) pg MCHC 33.3 (32-36) g/dL RDW 13.3 (11.6-14.4) % Plt Count 278 (150-420) K/mm3 MPV 9.7 (9.2-11.8) fl Immature Gran % (Auto) 1.6 H (0.0-0.0) % Neut % (Auto) 67.1 (50.0-70.0) % Lymph % (Auto) 21.8 (18.0-42.0) % [place] % (Auto) 6.7 (2.0-11.0) % Eos % (Auto) 2.2 (1.0-6.0) % Baso % (Auto) 0.6 (0.0-1.0) % Lymph # (Auto) 1.11 (1.10-4.50) K/mm3 [place] # (Auto) 0.34 (0.10-0.90) K/mm3 Eos # (Auto) 0.11 (0.02-0.50) K/mm3 Baso # (Auto) 0.03 (0.00-0.10) K/mm3 Abs Immat Gran (auto) 0.08 H (0.00-0.00) K/mm3 Absolute Neuts (auto) 3.42 (1.70-7.20) K/mm3 Absolute Nucleated RBC 0.00 (0.00-0.00) K/mm3 Nucleated RBC % 0.0 (0-0.0) % PT 10.7 (9.50-12.1) Seconds INR 1.0 APTT 25.7 (23.9-30.70) Sec Sodium 142 (136-145) mmol/L Potassium 3.5 (3.5-5.1) mmol/L Chloride 105 (98-108) mmol/L Carbon Dioxide 31 (21-32) mmol/L Anion Gap 6 (4-12) mmol/L BUN 17 (7-18) mg/dL Creatinine 0.77 (0.55-1.02) mg/dL Estim Creat Clear Calc 47 ml/min Estimated GFR > 60 (59 - ) Glucose 217 H (70-99) mg/dL POC Capillary Glucose 120 H (65-105) mg/dl Calculated Osmolality 302 H (285-295) mOsm/kg Lactic Acid 0.9 (0.4-2.0) mmol/L Calcium 8.9 (8.5-10.1) mg/dL Total Bilirubin 0.7 (0.00-1.00) mg/dL AST 18 (15-37) U/L ALT 114 H (14-59) U/L Alkaline Phosphatase 206 H (46-116) U/L Ammonia 19 (11-32) umol/L Total Protein 6.1 L (6.4-8.2) g/dL Albumin 3.0 L (3.4-5.0) g/dL Stool Occult Blood Positive A (Negative) Critical Care Time Critical Care Time Critical Care Time: No Discharge Plan Discharge Clinical Impression: Acute GI bleeding, Colitis Patient Disposition: Acute Care Hospital Condition: Stable Prescriptions: No Action latanoprost 0.005 % drops 1 drp RIGHT EYE DAILY insulin glargine [Lantus U-100 Insulin] 100 unit/mL solution 32 unit SUBCUT BID verapamil 360 mg capsule,ext rel. pellets 24 hr 360 mg PO DAILY levothyroxine [Unithroid] 125 mcg tablet 137 mcg PO DAILY timolol maleate 0.5 % drops 10 drp EACH EYE DAILY lisinopril 40 mg tablet 40 mg PO DAILY duloxetine 20 mg capsule,delayed release(DR/EC) 20 mg PO BID clopidogrel 75 mg tablet 75 mg PO DAILY Saline Nasal Mist 0.65 % aerosol,spray 2 spray intranasal QID PRN (Reason: dry nasal passages) Qty: 44 0RF aspirin 81 mg tablet,delayed release (DR/EC) 81 mg PO DAILY (DME) pen needle, diabetic [BD Ultra-Fine Mini Pen Needle] 31 gauge x 3/16 needle MISCELLANEOUS torsemide 10 mg tablet 10 mg PO QAM mupirocin 2 % ointment See Rx Instructions topical .COMPLEX Qty: 44 1RF Rx Instructions: 3-4x per day for two weeks then 1-2 times per day forever. Also, melt about 2cm in each irrigation bottle while irrigating; Follow-up/Referrals: Myke Clarke MD [Primary Care Provider] - Time of Disposition: 21:20
[2024-02-29] MEDS: metroNIDAZOLE 500 MG/ISO 100ML 500 MG/100 ML BAG 100 MG IVPB (18:27)
--- NOTE | 2024-02-29 18:50 | PC.NURSE ---
ERP aware of pt's bp. No new orders.
--- NOTE | 2024-02-29 18:55 | PC.NURSE ---
ASSUMED CARE. REPORT RECEIVED FROM INDRA LAROSE. AWAITING CALL FROM [facility] FOR TRANSFER
[2024-02-29] MEDS: CIPROFLOXACIN 400 MG/D5W 200ML 200 ML 200 MG IVPB (19:33)
--- NOTE | 2024-02-29 19:41 | PC.NURSE ---
PATIENT IS RESTING ON STRETCHER. SON WENT HOME AND TOOK SOME PERSONAL BELONGINGS WITH HIM. UPDATED PATIENT THAT WE ARE WAITING A RETURN CALL FROM [facility], GI SPECIALIST. PATIENT AND SON VERBALIZED UNDERSTANDING. PATIENT HAS CALL LIGHT IN REACH. WILL PLACE BEDSIDE COMMODE IN ROOM FOR BATHROOM NEEDS.
--- NOTE | 2024-02-29 19:52 | PC.NURSE ---
HELPED PATIENT UP TO BEDSIDE COMMODE. REQUESTED TO SIT FOR A LITTLE BIT ON COMMODE. PATIENT HAS CALL LIGHT NEXT TO HER. PATIENT IS AWARE THAT SHE IS TO CALL FOR ASSISTANCE BACK INTO THE BED.
--- NOTE | 2024-02-29 20:11 | PC.NURSE ---
PATIENT WAS HELPED BACK TO BED BY [facility]. PATIENT HAS CALL LIGHT IN REACH. ICE CHIPS WERE GIVEN PER DR BLANCA. DENIES ANY OTHER NEEDS. CONTINUE TO WAIT ON RETURN CALL FROM [facility]
--- NOTE | 2024-02-29 20:40 | PC.NURSE ---
PATIENT IS RESTING ON STRETCHER. CALL LIGHT IN REACH. DENIES ANY CURRENT NEEDS.
--- NOTE | 2024-02-29 21:22 | PC.NURSE ---
TRANSFER CONSENT SIGNED BY PATIENT AND PLACED ON CHART. PATIENT UPDATED ON CURRENT PLAN OF CARE. CURRENTLY WAITING ON BED ASSIGNMENT FOR TRANSFER TO [place]. PATIENT DENIES ANY NEEDS. CALL LIGHT IN REACH
[2024-02-29 22:05] LABS: Glucose Point of Care 120 mg/dl (65-105)
--- NOTE | 2024-02-29 22:12 | PC.NURSE ---
BLOOD GLUCOSE TAKEN, RESULTS 120
== END 2024-02-29 22:28 | disposition short-term general hospital (02) ==
PROVIDERS: Emergency Provider Emergency Medicine; PCP Internal Medicine
DX: K52.9 Noninfective gastroenteritis and colitis, unspecified (principal); I25.10 Atherosclerotic heart disease of native coronary artery without angina pectoris; E11.9 Type 2 diabetes mellitus without complications; I10 Essential (primary) hypertension; E03.9 Hypothyroidism, unspecified; Z79.82 Long term (current) use of aspirin; Z79.01 Long term (current) use of anticoagulants; Z79.4 Long term (current) use of insulin
CPT/HCPCS: 36415; 74177; 80053; 82140; 82272; 82948; 83605; 85025; 85610; 85730; 96361; 96365; 96367; 96375; 99285; J0744; J1836; J2470; J7030; Q9967

== ENCOUNTER 2024-03-01 00:40 | Inpatient (IN) | payer MEDICARE, SELFPAY ==
[2024-02-29 23:26] VITALS: BMI 23.3
--- NOTE | 2024-02-29 23:27 | ADMGEN ---
This patient, Marsha Zamudio, was admitted to IMU Room 206-01. Patient/family oriented to hospital policies and general routines including ID bracelet, bed and alarms, visiting hours, pain management, procedures, bathroom and other care routines, personal items, smoking policy, room service/diet, and visiting hours. Information on how to activate the Rapid Response Team has been discussed. Patient/Family are encouraged to report perceived risks to care and to ask questions if they do not understand what they are told or what they should do. Received report from Jaun Sood from [facility] at 2200.
[2024-02-29 23:30] VITALS: BP 144/61; PULSE 70; RESP 18; TEMP 36.9; O2SAT 98; BMI 23.1
[2024-03-01] VITALS (18 sets, daily range): BP systolic 123–168; BP diastolic 57–88; PULSE 65–113; RESP 16–23; TEMP 36.6–36.9; O2SAT 96–100
--- NOTE | ~2024-03-01 | US_ITS ---
EXAMINATION: US right upper quadrant DATE: 03/01/2024 16:23 INDICATION: Elevated liver function tests TECHNIQUE: Multiple grayscale and Doppler ultrasound images of the abdomen were obtained. COMPARISON: CT dated 02/29/2024 FINDINGS: The pancreatic head and body are normal in appearance. The pancreatic tail is not visualized. Liver has normal contour, with a smooth surface. There is subtle heterogeneous echogenicity with geographic non masslike regions of subtly increased echogenicity in the left hepatic lobe. No liver lesion iden tified. No intrahepatic biliary duct dilation suspected. Portal venous flow was seen in the hepatopet al, normal direction and has normal Doppler waveform. The visualized proximal to mid inferior vena ca va is normal. The gallbladder is is dilated to 4.7 cm with hypoechoic sludge surrounding a couple ech ogenic and shadowing gallstones in the dependent aspect of the gallbladder. There is a trace amount o f pericholecystic fluid between the gallbladder and liver. The common bile duct measures 4 mm, which is normal. Sonographic Orozco sign was reported as negative by the office rental clerk. Visualized portion of the right kidney demonstrates normal contour and echogenicity with no hydronephrosis. IMPRESSION: 1. Distended gallbladder with gallbladder sludge, gallstones and trace amount of pericholecystic flui d but without evident wall thickening and with negative sonographic Orozco sign which is equivocal fo r acute cholecystitis. If there is clinical concern for acute cholecystitis could consider HIDA scan for further evaluation. 2. Heterogeneous hepatic echogenicity with geographic non masslike regions of subtly decreased echoge nicity in the left hepatic lobe which could be related to mild heterogeneous hepatic steatosis. Consi ivone further evaluation with pre and postcontrast MRI for more definitive determination. Reviewed, dictated and finalized at location B. ARCHITECT IMPRESSION: 1. Distended gallbladder with gallbladder sludge, gallstones and trace amount o f pericholecystic fluid but without evident wall thickening and with negative s onographic Orozco sign which is equivocal for acute cholecystitis. If there is clinical concern for acute cholecystitis could consider HIDA scan for further e valuation. 2. Heterogeneous hepatic echogenicity with geographic non masslike regions of s ubtly decreased echogenicity in the left hepatic lobe which could be related to mild heterogeneous hepatic steatosis. Consider further evaluation with pre and postcontrast MRI for more definitive determination.
[2024-03-01] MEDS: DEXTROSE 5%/0.45% SOD CHL 1,000 ML 100 ML IV CONT (01:46)
[2024-03-01] MEDS: polyethylene glycoL 3350 238 GM BOTTLE PO (01:46)
[2024-03-01 02:16] LABS: Basophils Percent Auto 0.5 % (0.2-1.2); Eosinophils Absolute Auto 0.1 K/mm3 (0-0.3); Eosinophils Percent Auto 2.2 % (0-4.4); Hemoglobin 9.8 g/dL (12.0-15.0); Immature Granulocyte Absolute 0.05 K/mm3 (0.00-0.031); Immature Granulocyte Percent A 0.9 % (0-0.5); Lymphocytes Absolute Auto 1.39 K/mm3 (0.9-3.2); Lymphocytes Percent Auto 25.2 % (18.3-44.2); Mean Corpuscular HGB Conc 31.6 g/dl (32-36); Mean Corpuscular Hemoglobin 30.8 pg (26-34); Mean Corpuscular Volume 97.5 fl (80-100); Mean Platelet Volume 9.7 fl (7.4-10.4); Monocytes Absolute Auto 0.5 K/mm3 (0.1-0.6); Monocytes Percent Auto 8.2 % (2.6-8.5); Neutrophils Absolute Auto 3.5 K/mm3 (1.3-6.7); Platelet Count Result 273 k/mm3 (150-375); Red Blood Count 3.18 M/mm3 (4.2-5.4); Red Cell Distribution Width 13.3 % (11.5-14.5); White Blood Count 5.5 K/mm3 (4.5-10.0)
[2024-03-01 02:26] LABS: Anion Gap 2 mmol/L (4-12); Blood Urea Nitrogen 13 mg/dL (7-17); Calcium 8.7 mg/dL (8.4-10.2); Carbon Dioxide 29 mmol/L (22-30); Chloride 109 mmol/L (98-107); Estimated CRCL calculation 59 ml/min; Estimated Glomerular Filt Rate > 60; Glucose 85 mg/dL (65-110); Magnesium 1.9 mg/dL (1.6-2.3); Phosphorus 3.5 mg/dL (2.5-4.5); Potassium 3.5 mmol/L (3.4-5.0); Sodium 140 mmol/L (137-145)
[2024-03-01 02:28] LABS: Prothrombin Time 14.1 Seconds (11.1-14.7)
[2024-03-01 02:29] LABS: Partial Thromboplastin Time 28.3 Seconds (22.3-36.8)
--- NOTE | 2024-03-01 07:36 | WPDGICN ---
GI Consult Note Consult date/time: 03/01/24 07:36 HPI: Marsha Zamudio is a 79 year old female COUNTS INCLUDE 234 BEDS AT THE [facility] Past Medical History Medical History Arthritis of left shoulder region Arthritis of shoulder region, right, degenerative Diabetes mellitus Hypertension Hypothyroidism Peripheral neuropathy Surgical History Surgical History H/O angioplasty Family History Family History Father Diabetes mellitus Heart disease Mother Cancer Hypertension Heart disease Thyroid disorder Cerebrovascular accident Sibling Hypertension Other Hypertension Heart disease Cerebrovascular accident Grandparent Cancer Social History Social History Smoking status: Never smoker Alcohol intake: never Substance use: never Substance use type: does not use Do You Feel Safe in your Home?: Yes Lack of Transportation: No Lack of Food: Never True Current Housing: I Have Housing Concerned About Future Housing: No Difficulty Paying Gas/Electric Bills: No Difficulty Paying for Meds: No Currently Unemployed: No Education: High School Diploma/GED Difficulty w/ Childcare or Family Care: No Spiritual care concerns: Yes Meds Home Medications and Allergies Home Medications Medication Instructions Recorded Confirmed Type duloxetine 20 mg capsule,delayed 20 mg PO BID 09/27/22 02/29/24 History release insulin glargine 100 unit/mL 32 unit subcut BID 09/27/22 02/29/24 History subcutaneous solution (Lantus U-100 Insulin) latanoprost 0.005 % eye drops 1 drp RIGHT EYE DAILY 09/27/22 02/29/24 History levothyroxine 125 mcg tablet 137 mcg PO DAILY 09/27/22 02/29/24 History (Unithroid) lisinopril 40 mg tablet 40 mg PO DAILY 09/27/22 02/29/24 History timolol maleate 0.5 % eye drops 10 drp EACH EYE DAILY 09/27/22 02/29/24 History verapamil 360 mg 24 hr 360 mg PO DAILY 09/27/22 02/29/24 History capsule,extended release clopidogrel 75 mg tablet 75 mg PO DAILY 01/23/23 02/29/24 History sodium chloride 0.65 % nasal spray 2 spray intranasal QID PRN dry 01/23/23 02/29/24 Rx aerosol (Saline Nasal Mist) nasal passages #44 mL mupirocin 2 % topical ointment See Rx Instructions topical 02/13/23 02/29/24 Rx .COMPLEX #44 grams torsemide 10 mg tablet 10 mg PO QAM 02/27/23 02/29/24 History aspirin 81 mg tablet,delayed 81 mg PO DAILY 02/29/24 02/29/24 History release pen needle, diabetic 31 gauge x 02/29/24 02/29/24 History 3/16 (BD Ultra-Fine Mini Pen Needle) Allergies Allergy/AdvReac Type Severity Reaction Status Date / Time No Known Allergies Allergy Verified 02/29/24 17:22 Vital Signs Vital Signs - 24 hr 02/29/24 23:30 03/01/24 00:00 03/01/24 00:00 Temperature 98.4 F Pulse Rate 70 65 Respiratory Rate 18 Blood Pressure 144/61 H Pulse Oximetry 98 97 Oxygen Delivery Room Air 03/01/24 02:00 03/01/24 04:00 03/01/24 04:00 Temperature 98.2 F Pulse Rate 68 68 74 Respiratory Rate 20 Blood Pressure 168/61 H Pulse Oximetry 98 Oxygen Delivery 03/01/24 06:00 Temperature Pulse Rate 87 Respiratory Rate Blood Pressure Pulse Oximetry Oxygen Delivery Results Labs 03/01/24 01:56 03/01/24 01:56 Labs: Short CBC 03/01/24 Range/Units 01:56 WBC 5.5 (4.5-10.0) K/mm3 Hgb 9.8 L (12.0-15.0) g/dL Hct 31.0 L (37.0-47.0) % Plt Count 273 (150-375) k/mm3 [facility] 03/01/24 01:56 Sodium 140 Potassium 3.5 Chloride 109 H Carbon Dioxide 29 BUN 13 Creatinine 0.60 L Glucose 85 Calcium 8.7
--- NOTE | 2024-03-01 07:36 | WPDGICN ---
Assessment and Plan Assessment and plan (1) GI bleeding: Code(s): K92.2 - Gastrointestinal hemorrhage, unspecified Status: Acute Assessment and Plan: Patient with lower GI bleeding, differential diagnosis includes diverticular bleeding, ischemic colitis vs neoplasm. Will perform colonoscopy this afternoon. GI Consult Note Consult date/time: 03/01/24 07:36 HPI: Marsha Zamudio is a 79 year old female with a history of coronary artery disease diabetes hypothyroidism and hypertension is currently on aspirin and Plavix that for the last 3 days has been having bright red blood per rectum with initially some intermittent clots. She is currently in the process of being prepped for a colonoscopy . Her last colonoscopy was more than 20 years ago. Review of Systems Review of Systems: All systems reviewed & are unremarkable except as noted in HPI and below PMFSH Past Medical History Medical History Arthritis of left shoulder region Arthritis of shoulder region, right, degenerative Diabetes mellitus Hypertension Hypothyroidism Peripheral neuropathy Surgical History Surgical History H/O angioplasty Family History Family History Father Diabetes mellitus Heart disease Mother Cancer Hypertension Heart disease Thyroid disorder Cerebrovascular accident Sibling Hypertension Other Hypertension Heart disease Cerebrovascular accident Grandparent Cancer Social History Social History Smoking status: Never smoker Alcohol intake: never Substance use: never Substance use type: does not use Do You Feel Safe in your Home?: Yes Lack of Transportation: No Lack of Food: Never True Current Housing: I Have Housing Concerned About Future Housing: No Difficulty Paying Gas/Electric Bills: No Difficulty Paying for Meds: No Currently Unemployed: No Education: High School Diploma/GED Difficulty w/ Childcare or Family Care: No Spiritual care concerns: Yes Meds Home Medications and Allergies Home Medications Medication Instructions Recorded Confirmed Type duloxetine 20 mg capsule,delayed 20 mg PO BID 09/27/22 02/29/24 History release insulin glargine 100 unit/mL 32 unit subcut BID 09/27/22 02/29/24 History subcutaneous solution (Lantus U-100 Insulin) latanoprost 0.005 % eye drops 1 drp RIGHT EYE DAILY 09/27/22 02/29/24 History levothyroxine 125 mcg tablet 137 mcg PO DAILY 09/27/22 02/29/24 History (Unithroid) lisinopril 40 mg tablet 40 mg PO DAILY 09/27/22 02/29/24 History timolol maleate 0.5 % eye drops 10 drp EACH EYE DAILY 09/27/22 02/29/24 History verapamil 360 mg 24 hr 360 mg PO DAILY 09/27/22 02/29/24 History capsule,extended release clopidogrel 75 mg tablet 75 mg PO DAILY 01/23/23 02/29/24 History sodium chloride 0.65 % nasal spray 2 spray intranasal QID PRN dry 01/23/23 02/29/24 Rx aerosol (Saline Nasal Mist) nasal passages #44 mL mupirocin 2 % topical ointment See Rx Instructions topical 02/13/23 02/29/24 Rx .COMPLEX #44 grams torsemide 10 mg tablet 10 mg PO QAM 02/27/23 02/29/24 History aspirin 81 mg tablet,delayed 81 mg PO DAILY 02/29/24 02/29/24 History release pen needle, diabetic 31 gauge x 02/29/24 02/29/24 History 3/16 (BD Ultra-Fine Mini Pen Needle) Allergies Allergy/AdvReac Type Severity Reaction Status Date / Time No Known Allergies Allergy Verified 02/29/24 17:22 Vital Signs Vital Signs - 24 hr 02/29/24 23:30 03/01/24 00:00 03/01/24 00:00 Temperature 98.4 F Pulse Rate 70 65 Respiratory Rate 18 Blood Pressure 144/61 H Pulse Oximetry 98 97 Oxygen Delivery Room Air 03/01/24 02:00 03/01/24 04:00 03/01/24 04:00 Temperature 98.2 F Pulse Rate 68 68 74 Respiratory Rate 20 Blood Pressure 168/61 H Pulse Oximetry 98 Oxygen Delivery 03/01/24 06:00 Temperature Pulse Rate 87 Respiratory Rate Blood Pressure Pulse Oximetry Oxygen Delivery Exam Const: General: cooperative and healthy appearing Resp: Effort & Inspection: normal respiratory effort and able to speak in complete sentences Auscultation: clear to auscultation bilaterally Cardio: Rate: regular rate Rhythm: regular rhythm GI: Inspection: normal to inspection GI Palp: No No hepatosplenomegaly present Auscultation: normal bowel sounds Rectal Exam: deferred Skin: General skin exam: normal color Psych: Appearance: grossly normal Mental Status: mental status grossly normal Results Labs 03/01/24 01:56 03/01/24 01:56 Labs: Short CBC 03/01/24 Range/Units 01:56 WBC 5.5 (4.5-10.0) K/mm3 Hgb 9.8 L (12.0-15.0) g/dL Hct 31.0 L (37.0-47.0) % Plt Count 273 (150-375) k/mm3 [facility] 03/01/24 01:56 Sodium 140 Potassium 3.5 Chloride 109 H Carbon Dioxide 29 BUN 13 Creatinine 0.60 L Glucose 85 Calcium 8.7
--- NOTE | 2024-03-01 07:41 | PC.NURSE ---
Updated son, Carlos, via telephone on patient condition and plan of care.
--- NOTE | 2024-03-01 08:13 | PM.IMHP ---
H&P: HPI History of Present Illness Date/Time: 03/01/24 08:13 Chief Complaint: Red blood per rectum Narrative: 79yo female with CAD, DM and HTN who presents with 3 day hx of bright red blood per rectum. She takes ASA and Plavix chronically. She has PAD and CAD but denies having stents placed in the past. Also known carotid disease that is followed by her vascular surgeon. Patient did require iron infusions last year for anemia but this has since resolved. She was on duloxetine for neuropathy but weaned herself off of this about 2 weeks ago. Her normal bowel pattern is that she has mild constipation with a soft bowel movement every other day. No recent melena or hematochezia. Her last colonoscopy was 20+ years ago. She was doing well until about 3 days prior to admission when she noted bright red blood per rectum. She was not straining at the time. She continued to have blood per rectum with each bowel movement. She is not sure how many she has had over this time. No stool urgency or abdominal pain. She does feel some mild rectal pressure prior to bowel movement. She has been passing blood clots. She has headaches that are chronic. She also has a dry chronic cough. She denies fever, chills, nausea, vomiting, chest pain, shortness of breath, palpitations, dysuria or hematuria. She has had about a 23 lb weight loss since September. Her dental plate does not fit well now. She is not actively trying to lose weight. About a week ago, she slipped out of bed landing on her tailbone. She was on the floor for about 10 hours. Her son arrived and found her on the floor. She did not seek medical attention. She was able to walk without difficulty. She walks with a walker normally. She has noted some mild increased pain over the last week in the lower back area. Because of the persistent bloody stools, patient presented to emergency room for evaluation. In the ED, she was hemodynamically stable. Lactic acid normal. WBC and plt count normal. Hgb 11 with last Hgb 13 in October. PT/PTT and CMP normal except for glucose of 217, AST 114, AP 206 and TP 6.1. Stool occult positive. CT Abd/Pelvis showing wall thickening of the sigmoid colon consistent with colitis, moderate sliding hiatal hernia and large widemouthed ventral hernia containing bowel. The liver is normal. She was given IV fluids, IV Protonix, IV Cipro and Flagyl and was sent to [place] for further care. Review of Systems Review of Systems: All systems reviewed & are unremarkable except as noted in HPI and below [facility] Past Medical History Medical History (Updated 03/01/24 @ 09:25 by Han Donato MD) Aortic stenosis Arthritis of left shoulder region Arthritis of shoulder region, right, degenerative CAD (coronary artery disease) 40% stenosis with LHC 20+ yrs ago Diabetes mellitus Hypertension Hypothyroidism Hx of Jazzy PAD (peripheral artery disease) RLE in Dec 2022 and LLE in July 2023 Peripheral neuropathy Surgical History Surgical History (Updated 03/01/24 @ 09:10 by Han Donato MD) Amputated toe due to infection H/O angioplasty S/P JAIRO-BSO Family History Family History Father Diabetes mellitus Heart disease Mother Cancer Hypertension Heart disease Thyroid disorder Cerebrovascular accident Sibling Hypertension Other Hypertension Heart disease Cerebrovascular accident Grandparent Cancer Social History Social History (Updated 03/01/24 @ 09:10 by Han Donato MD) Social History: Patient is . She lives alone. Lifelong nonsmoker. No alcohol or drug use. Code status -DNR Surrogate decision maker -son Smoking status: Never smoker Alcohol intake: never Substance use: never Substance use type: does not use Do You Feel Safe in your Home?: Yes Lack of Transportation: No Lack of Food: Never True Current Housing: I Have Housing Concerned About Future Housing: No Difficulty Paying Gas/Electric Bills: No Difficulty Paying for Meds: No Currently Unemployed: No Education: High School Diploma/GED Difficulty w/ Childcare or Family Care: No Spiritual care concerns: Yes Meds Home Medications and Allergies Home Medications Medication Instructions Recorded Confirmed Type duloxetine 20 mg capsule,delayed 20 mg PO BID 09/27/22 02/29/24 History release insulin glargine 100 unit/mL 32 unit subcut BID 09/27/22 02/29/24 History subcutaneous solution (Lantus U-100 Insulin) latanoprost 0.005 % eye drops 1 drp RIGHT EYE DAILY 09/27/22 02/29/24 History levothyroxine 125 mcg tablet 137 mcg PO DAILY 09/27/22 02/29/24 History (Unithroid) lisinopril 40 mg tablet 40 mg PO DAILY 09/27/22 02/29/24 History timolol maleate 0.5 % eye drops 10 drp EACH EYE DAILY 09/27/22 02/29/24 History verapamil 360 mg 24 hr 360 mg PO DAILY 09/27/22 02/29/24 History capsule,extended release clopidogrel 75 mg tablet 75 mg PO DAILY 01/23/23 02/29/24 History sodium chloride 0.65 % nasal spray 2 spray intranasal QID PRN dry 01/23/23 02/29/24 Rx aerosol (Saline Nasal Mist) nasal passages #44 mL mupirocin 2 % topical ointment See Rx Instructions topical 02/13/23 02/29/24 Rx .COMPLEX #44 grams torsemide 10 mg tablet 10 mg PO QAM 02/27/23 02/29/24 History aspirin 81 mg tablet,delayed 81 mg PO DAILY 02/29/24 02/29/24 History release pen needle, diabetic 31 gauge x 02/29/24 02/29/24 History 3/16 (BD Ultra-Fine Mini Pen Needle) Allergies Allergy/AdvReac Type Severity Reaction Status Date / Time No Known Allergies Allergy Verified 02/29/24 17:22 Vital Signs Vital Signs - 24 hr 02/29/24 23:30 03/01/24 00:00 03/01/24 00:00 Temperature 98.4 F Pulse Rate 70 65 Respiratory Rate 18 Blood Pressure 144/61 H Pulse Oximetry 98 97 Oxygen Delivery Room Air 03/01/24 02:00 03/01/24 04:00 03/01/24 04:00 Temperature 98.2 F Pulse Rate 68 68 74 Respiratory Rate 20 Blood Pressure 168/61 H Pulse Oximetry 98 Oxygen Delivery 03/01/24 06:00 03/01/24 08:00 Temperature 98.1 F Pulse Rate 87 76 Respiratory Rate 16 Blood Pressure 156/73 H Pulse Oximetry 97 Oxygen Delivery Exam Narrative: AF 98.1 156/73 76 16 97% ra Gen - well appearing female in no acute respiratory distress who is nontoxic-appearing lying semi recumbent in bed HEENT - normocephalic. Atraumatic. Pupils equal round and reactive. Extraocular motions intact. Sclera clear and anicteric. Nares patent. Oropharynx was partially visualized. No oral lesions. Moist mucous membranes. Tongue was midline. Palate reyes symmetrically. No facial asymmetry. Limited number but poor dentition. Neck - neck was supple. No dominant adenopathy, thyromegaly or masses. 2+ carotid upstrokes with bruits. Chest - lungs are clear to auscultation bilaterally. No wheezes or crackles. Breast exam was deferred. CV - heart was regular rate and rhythm. S1-S2. 2/6 systolic murmur t/o precordium loudest USB Abd - abdomen was soft. Nontender. Nondistended. Positive bowel sounds. No organomegaly or masses. Lower abdominal hernia. Back - scoliosis. old bruising noted upper sacral area. no palpable pain around the sacral area Ext - no clubbing, cyanosis or edema. trace DP pulses bilaterally. right 2nd toe amp. Neuro - patient is alert and oriented x4. Strength is 5/5 in both upper and lower extremities. Cranial nerves 2-12 are intact. Speech is clear. Psych - normal mood and affect. Patient is pleasant and cooperative. Skin - warm and dry. No rashes noted. H&P: Results Labs Labs: Short CBC 03/01/24 Range/Units 01:56 WBC 5.5 (4.5-10.0) K/mm3 Hgb 9.8 L (12.0-15.0) g/dL Hct 31.0 L (37.0-47.0) % Plt Count 273 (150-375) k/mm3 [facility] 03/01/24 01:56 Sodium 140 Potassium 3.5 Chloride 109 H Carbon Dioxide 29 BUN 13 Creatinine 0.60 L Glucose 85 Calcium 8.7 Assessment and Plan Assessment and plan (1) GI bleeding: Code(s): K92.2 - Gastrointestinal hemorrhage, unspecified Status: Acute Assessment and Plan: Patient presents with bright red blood per rectum. CT scan shows sigmoid colon wall thickening. Could be inflammation from infection but no pain, fever, or elevated white count. Consider neoplastic etiology. Iron studies normal in October. Hgb has dropped to 9.8 now. GI consulted. Serial H&H. Colonoscopy planned for later today. (2) Colitis: Code(s): K52.9 - Noninfective gastroenteritis and colitis, unspecified Status: Acute Assessment and Plan: Patient with bright red blood per rectum and found to have sigmoid wall thickening. Antibiotics started in the emergency room. Will continue abx for now. (3) Diabetes mellitus: Code(s): E11.9 - Type 2 diabetes mellitus without complications Status: Acute Assessment and Plan: Patient with insulin-dependent diabetes. Last A1c in August was 8.4. She states her insulin regimen was adjusted recently. She was encouraged to bring in her updated medication list. Start sliding scale protocol. Start hypoglycemia protocol. (4) Hypertension: Code(s): I10 - Essential (primary) hypertension Status: Acute Assessment and Plan: Blood pressure mildly elevated probably related to her being off her medications. Resume home medications once list is available. (5) Hypothyroidism: Code(s): E03.9 - Hypothyroidism, unspecified Status: Acute Assessment and Plan: Patient is followed by Endocrinology. Patient states they recently decreased her levothyroxine to 100 mcg daily. Will defer to Endocrinology. Hold on checking TSH at this time. (6) PAD (peripheral artery disease): Code(s): I73.9 - Peripheral vascular disease, unspecified Status: Acute Assessment and Plan: Patient with known peripheral arterial disease with recent balloon angioplasty in July to the left lower extremity. She is also being followed for carotid stenosis. No stents placed. Okay to hold Plavix and aspirin until etiology is determined of her rectal bleeding. Resume these medications when safe to do so. (7) Elevated LFTs: Code(s): R79.89 - Other specified abnormal findings of blood chemistry Status: Acute Assessment and Plan: ALT 114 and AP 206 on admission. Level have not been elevated before. Liver normal by CT and no pain on exam. Related to medications? Check hepatitis panel. Check lipase and GGT. Check RUQ US. Follow levels Plan DVT prophylaxis -SCDs Code status -DNR
[2024-03-01 10:56] LABS: Hemoglobin 9.8 g/dL (12.0-15.0)
[2024-03-01 11:08] LABS: CRP 0.6 mg/dL (<1.0); Lipase 121 U/L (23-300)
[2024-03-01] MEDS: metroNIDAZOLE 500 MG/ISO 100ML 500 MG/100 ML BAG 100 MG IVPB ×2 (12:16→17:53)
[2024-03-01 12:50] LABS: Hepatitis B Surface Antigen Negative (Negative)
[2024-03-01 12:56] LABS: HAV RESULT Negative (Negative); Hepatitis B Core IgM Result Negative (Negative)
[2024-03-01 13:07] LABS: Hepatitis C Virus Antibody Negative (Negative)
--- NOTE | 2024-03-01 13:28 | PC.NURSE ---
Pt left IMU room 206 for GI lab.
[2024-03-01 13:31] LABS: Glucose Point of Care 138 mg/dl (65-105)
[2024-03-01] MEDS: LACTATED RINGERS 1,000 ML 150 ML IV CONT (13:40)
--- NOTE | 2024-03-01 13:52 | P.PNAN_ITS ---
Anes - Initial Pre Proc Eval Procedure: Operation Date: 03/01/24 14:00 Proposed Procedures p Colonoscopy - Darien Houston MD Date/Time: 03/01/24 13:52 Surgeon: Joi Hirsch MD Pre Op Diagnosis: GI Bleed Patient Data Age: 79 Gender: F Height: 1.65 m Weight: 63.1 kg Last Vital Signs Temp 97.9 F 03/01/24 13:34 Pulse 93 03/01/24 13:34 Resp 16 03/01/24 13:34 BP 123/76 03/01/24 13:34 Pulse Ox 99 03/01/24 13:34 O2 Del Method Room Air 03/01/24 13:34 Allergies Allergy/AdvReac Type Severity Reaction Status Date / Time No Known Allergies Allergy Verified 03/01/24 13:30 Home Medications Medication Instructions Recorded Confirmed Type duloxetine 20 mg capsule,delayed 20 mg PO BID 09/27/22 02/29/24 History release insulin glargine 100 unit/mL 32 unit subcut BID 09/27/22 02/29/24 History subcutaneous solution (Lantus U-100 Insulin) latanoprost 0.005 % eye drops 1 drp RIGHT EYE DAILY 09/27/22 02/29/24 History levothyroxine 125 mcg tablet 137 mcg PO DAILY 09/27/22 02/29/24 History (Unithroid) lisinopril 40 mg tablet 40 mg PO DAILY 09/27/22 02/29/24 History timolol maleate 0.5 % eye drops 10 drp EACH EYE DAILY 09/27/22 02/29/24 History verapamil 360 mg 24 hr 360 mg PO DAILY 09/27/22 02/29/24 History capsule,extended release clopidogrel 75 mg tablet 75 mg PO DAILY 01/23/23 02/29/24 History sodium chloride 0.65 % nasal spray 2 spray intranasal QID PRN dry 01/23/23 02/29/24 Rx aerosol (Saline Nasal Mist) nasal passages #44 mL mupirocin 2 % topical ointment See Rx Instructions topical 02/13/23 02/29/24 Rx .COMPLEX #44 grams torsemide 10 mg tablet 10 mg PO QAM 02/27/23 02/29/24 History aspirin 81 mg tablet,delayed 81 mg PO DAILY 02/29/24 02/29/24 History release pen needle, diabetic 31 gauge x 02/29/24 02/29/24 History 06/23 (BD Ultra-Fine Mini Pen Needle) Laboratory Tests 03/01/24 03/01/24 03/01/24 01:56 10:51 13:27 WBC 5.5 K/mm3 (4.5-10.0) RBC 3.18 L M/mm3 (4.2-5.4) Hgb 9.8 L g/dL 9.8 L g/dL (12.0-15.0) (12.0-15.0) Hct 31.0 L % 30.0 L % (37.0-47.0) (37.0-47.0) MCV 97.5 fl (80-100) MCH 30.8 pg (26-34) MCHC 31.6 L g/dl (32-36) RDW 13.3 % (11.5-14.5) Plt Count 273 k/mm3 (150-375) MPV 9.7 fl (7.4-10.4) Immature Gran % (Auto) 0.9 H % (0-0.5) Neut % (Auto) 63.0 % (45.5-73.1) Lymph % (Auto) 25.2 % (18.3-44.2) Towner % (Auto) 8.2 % (2.6-8.5) Eos % (Auto) 2.2 % (0-4.4) Baso % (Auto) 0.5 % (0.2-1.2) Lymph # (Auto) 1.39 K/mm3 (0.9-3.2) Towner # (Auto) 0.5 K/mm3 (0.1-0.6) Eos # (Auto) 0.1 K/mm3 (0-0.3) Baso # (Auto) 0.0 K/mm3 (0.0-0.1) Abs Immat Gran (auto) 0.05 H K/mm3 (0.00-0.031) Absolute Neuts (auto) 3.5 K/mm3 (1.3-6.7) Absolute Nucleated RBC 0.000 K/mm3 (0.0-0.012) Nucleated RBC % 0.0 % (0.0-0.2) PT 14.1 Seconds (11.1-14.7) INR 1.0 APTT 28.3 Seconds (22.3-36.8) Sodium 140 mmol/L (137-145) Potassium 3.5 mmol/L (3.4-5.0) Chloride 109 H mmol/L (98-107) Carbon Dioxide 29 mmol/L (22-30) Anion Gap 2 L mmol/L (4-12) BUN 13 mg/dL (7-17) Creatinine 0.60 L mg/dL (0.7-1.0) Estim Creat Clear Calc 59 ml/min Estimated GFR > 60 (59 - ) Glucose 85 mg/dL (65-110) POC Capillary Glucose 138 H mg/dl (65-105) Hemoglobin A1c Pending Calcium 8.7 mg/dL (8.4-10.2) Phosphorus 3.5 mg/dL (2.5-4.5) Magnesium 1.9 mg/dL (1.6-2.3) GGT Pending C-Reactive Protein 0.6 mg/dL (<1.0) Lipase 121 U/L (23-300) Hepatitis A IgM Ab Negative (Negative) Hep Bs Antigen Negative (Negative) Hep B Core IgM Ab Negative (Negative) Hepatitis C Ab Screen Negative (Negative) Patient hx anesthesia problems: none Family hx anesthesia problems: none Results Review: All pre-operative results and documents have been reviewed as part of the pre- operative evaluation. [facility] Past Medical History Medical History (Updated 03/01/24 @ 09:25 by Han Donato MD) Aortic stenosis Arthritis of left shoulder region Arthritis of shoulder region, right, degenerative CAD (coronary artery disease) 40% stenosis with LHC 20+ yrs ago Diabetes mellitus Hypertension Hypothyroidism Hx of Jazzy PAD (peripheral artery disease) RLE in Dec 2022 and LLE in July 2023 Peripheral neuropathy Surgical History Surgical History (Updated 03/01/24 @ 09:10 by Han Donato MD) Amputated toe due to infection H/O angioplasty S/P JAIRO-BSO Family History Family History Father Diabetes mellitus Heart disease Mother Cancer Hypertension Heart disease Thyroid disorder Cerebrovascular accident Sibling Hypertension Other Hypertension Heart disease Cerebrovascular accident Grandparent Cancer Social History Social History (Updated 03/01/24 @ 09:10 by Han Donato MD) Social History: Patient is . She lives alone. Lifelong nonsmoker. No alcohol or drug use. Code status -DNR Surrogate decision maker -son Smoking status: Never smoker Alcohol intake: never Substance use: never Substance use type: does not use Do You Feel Safe in your Home?: Yes Lack of Transportation: No Lack of Food: Never True Current Housing: I Have Housing Concerned About Future Housing: No Difficulty Paying Gas/Electric Bills: No Difficulty Paying for Meds: No Currently Unemployed: No Education: High School Diploma/GED Difficulty w/ Childcare or Family Care: No Spiritual care concerns: Yes Anes - Eval Final PreProcedure Day of Procedure 03/01/24 13:52 Patient weight: normal Heart: regular rate and rhythm Lungs: clear to auscultation Airway: Mallampati scale class II Neurological: alert and oriented Last oral intake: >/= 8 hours ASA classification: IV Emergent: no Anesthetic plan: proceed Anesthesia type and monitoring: general GIVS and standard monitoring Results Review: All pre-operative results and documents have been reviewed as part of the pre- operative evaluation. Informed Consent: The patient's anesthetic plan and its attendant risks and benefits were discussed with the patient/family/POA. Questions were solicited and answers provided to the satisfaction of the patient/family/POA.
--- NOTE | 2024-03-01 15:00 | PCOTNOTE ---
Attempted to see pt for OT evaluation however pt currently off the floor for a colonoscopy. Will continue to follow.
--- NOTE | 2024-03-01 15:13 | P.PNGI_ITS ---
Progress Note: A&P Assessment and Plan (1) GI bleeding: Code(s): K92.2 - Gastrointestinal hemorrhage, unspecified Status: Acute Assessment and Plan: See sigmoidoscopy report. Large amount of solid fecaliths and retained blood in the sigmoid, could not progress to full colonoscopy. Please keep patient on full liquid diet tomorrow and CLEAR LIQUIDS on Monday. Miralax 238 mg to be given 8 am, 8 pm on Saturday 03/03 and at 6 am on Sunday 03/04. Will attempt colonoscopy on Monday afternoon. Subjective Date/time seen: 03/01/24 15:13 Objective Data Vital Signs Vital Signs: Vital Signs - 24 hr 02/29/24 23:30 03/01/24 00:00 03/01/24 00:00 Temperature 98.4 F Pulse Rate 70 65 Respiratory Rate 18 Blood Pressure 144/61 H Pulse Oximetry 98 97 Oxygen Delivery Room Air 03/01/24 02:00 03/01/24 04:00 03/01/24 04:00 Temperature 98.2 F Pulse Rate 68 68 74 Respiratory Rate 20 Blood Pressure 168/61 H Pulse Oximetry 98 Oxygen Delivery 03/01/24 06:00 03/01/24 08:00 03/01/24 08:00 Temperature 98.1 F Pulse Rate 87 76 Respiratory Rate 16 Blood Pressure 156/73 H Pulse Oximetry 97 Oxygen Delivery Room Air 03/01/24 08:00 03/01/24 10:00 03/01/24 11:43 Temperature 98.4 F Pulse Rate 82 93 81 Respiratory Rate 18 Blood Pressure 124/57 L Pulse Oximetry 98 Oxygen Delivery 03/01/24 12:00 03/01/24 12:00 03/01/24 13:34 Temperature 97.9 F Pulse Rate 77 93 Respiratory Rate 16 Blood Pressure 123/76 Pulse Oximetry 99 Oxygen Delivery Room Air Room Air Intake/Output Intake/Output: Intake & Output 02/27/24 02/28/24 02/29/24 03/01/24 23:59 23:59 23:59 23:59 Intake Total 2006.5 Balance 2007.5 Meds/Results Medications: Active Medications Generic Name Dose Route Start Last Admin Trade Name Freq PRN Reason Stop Dose Admin Dextrose 12.5 gm 03/01/24 09:21 Dextrose 50% 25 Gm/50 Ml Syringe IV PUSH PRN PRN Hypoglycemia Protocol Glucagon 1 mg 03/01/24 09:21 Glucagon For Inj 1 Mg Vial IM PRN PRN Hypoglycemia Protocol Glucose 15 gm 03/01/24 09:21 Glucose Oral Gel 15 Gm Of Glucse In 37.5 Gm Tube PO PRN PRN Hypoglycemia Protocol Dextrose/Sodium Chloride 1,000 mls @ 100 mls/hr 03/01/24 00:50 03/01/24 12:17 Dextrose 5% Sodium Chloride 0.45% IV CONT Not Given .Q10H ANNA Dextrose 1,000 mls @ 100 mls/hr 03/01/24 09:21 Dextrose 5% 1,000 Ml IVPB PRN PRN Hypoglycemia Protocol Metronidazole 500 mg in 100 mls @ 100 mls/hr 03/01/24 11:00 03/01/24 13:16 Flagyl 500 Mg/Iso Soln 100 Ml IVPB Infused Q8H ANNA Infusion Ceftriaxone Sodium 1 gm in 50 mls @ 100 mls/hr 03/01/24 09:35 03/01/24 12:45 Rocephin 1 Gm/Ns 50 Ml IVPB Infused DAILY ANNA Infusion Lactated Ringer's 1,000 mls @ 150 mls/hr 03/01/24 12:45 03/01/24 15:03 Lr - Lactated Ringers Iv IV CONT 150 mls/hr .Q6H40M ANNA Infusion Insulin Aspart 2 - 5 units 03/01/24 12:00 03/01/24 12:17 Insulin Aspart (*Bkc) 100 Units/Ml SUB-Q Not Given [facility] Protocol Ondansetron HCl 4 mg 03/01/24 01:01 Ondansetron Inj 4 Mg/2 Ml Vial IV PUSH Q6H PRN Nausea And Vomiting Polyethylene Glycol 238 gm 03/03/24 08:00 Polyethylene Glycol 3350 238 Gm Bottle PO 03/03/24 08:01 ONCE ONE Polyethylene Glycol 238 gm 03/03/24 20:00 Polyethylene Glycol 3350 238 Gm Bottle PO 03/03/24 20:01 ONCE ONE Labs Labs: Laboratory Results - last 24 hr 03/01/24 03/01/24 03/01/24 01:56 10:51 13:27 WBC 5.5 RBC 3.18 L Hgb 9.8 L 9.8 L Hct 31.0 L 30.0 L MCV 97.5 MCH 30.8 MCHC 31.6 L RDW 13.3 Plt Count 273 MPV 9.7 Immature Gran % (Auto) 0.9 H Neut % (Auto) 63.0 Lymph % (Auto) 25.2 [place] % (Auto) 8.2 Eos % (Auto) 2.2 Baso % (Auto) 0.5 Lymph # (Auto) 1.39 [place] # (Auto) 0.5 Eos # (Auto) 0.1 Baso # (Auto) 0.0 Abs Immat Gran (auto) 0.05 H Absolute Neuts (auto) 3.5 Absolute Nucleated RBC 0.000 Nucleated RBC % 0.0 PT 14.1 INR 1.0 APTT 28.3 Sodium 140 Potassium 3.5 Chloride 109 H Carbon Dioxide 29 Anion Gap 2 L BUN 13 Creatinine 0.60 L Estim Creat Clear Calc 59 Estimated GFR > 60 Glucose 85 POC Capillary Glucose 138 H Calcium 8.7 Phosphorus 3.5 Magnesium 1.9 C-Reactive Protein 0.6 Lipase 121 Hepatitis A IgM Ab Negative Hep Bs Antigen Negative Hep B Core IgM Ab Negative Hepatitis C Ab Screen Negative
[2024-03-01 16:21] LABS: Hemoglobin A1C 6.8 % (<5.7)
--- NOTE | 2024-03-01 16:22 | PC.NURSE ---
pt returned from GI/ultrasound.
[2024-03-01 18:37] LABS: Hematocrit 28.7 % (37.0-47.0); Hemoglobin 9.3 g/dL (12.0-15.0)
[2024-03-02] VITALS (18 sets, daily range): BP systolic 121–171; BP diastolic 53–81; PULSE 57–92; RESP 16–20; TEMP 36.6–37.2; O2SAT 94–98
[2024-03-02] MEDS: DEXTROSE 5%/0.45% SOD CHL 1,000 ML 100 ML IV CONT (00:03)
[2024-03-02 00:45] LABS: Hematocrit 27.3 % (37.0-47.0); Hemoglobin 8.7 g/dL (12.0-15.0)
[2024-03-02 00:46] LABS: Glucose Point of Care 212 mg/dl (65-105)
[2024-03-02] MEDS: metroNIDAZOLE 500 MG/ISO 100ML 500 MG/100 ML BAG 100 MG IVPB ×3 (03:56→18:06)
[2024-03-02 04:57] LABS: Basophils Percent Auto 0.3 % (0.2-1.2); Eosinophils Absolute Auto 0.2 K/mm3 (0-0.3); Eosinophils Percent Auto 2.6 % (0-4.4); Hematocrit 26.4 % (37.0-47.0); Hemoglobin 8.5 g/dL (12.0-15.0); Immature Granulocyte Absolute 0.04 K/mm3 (0.00-0.031); Immature Granulocyte Percent A 0.7 % (0-0.5); Lymphocytes Absolute Auto 1.54 K/mm3 (0.9-3.2); Lymphocytes Percent Auto 25.1 % (18.3-44.2); Mean Corpuscular HGB Conc 32.2 g/dl (32-36); Mean Corpuscular Hemoglobin 31.5 pg (26-34); Mean Corpuscular Volume 97.8 fl (80-100); Mean Platelet Volume 10.1 fl (7.4-10.4); Monocytes Absolute Auto 0.4 K/mm3 (0.1-0.6); Neutrophils Percent Auto 64.3 % (45.5-73.1); Platelet Count Result 281 k/mm3 (150-375); Red Cell Distribution Width 13.6 % (11.5-14.5); White Blood Count 6.1 K/mm3 (4.5-10.0)
[2024-03-02 05:08] LABS: Alanine Aminotransferase 63 U/L (6-35); Albumin Level 2.6 g/dL (3.5-5.1); Alkaline Phosphatase 146 U/L (38-126); Anion Gap 1 mmol/L (4-12); Aspartate Amino Transferase 23 U/L (14-36); Bilirubin,Total 0.5 mg/dL (0.2-1.3); Blood Urea Nitrogen 7 mg/dL (7-17); Calcium 8.2 mg/dL (8.4-10.2); Carbon Dioxide 29 mmol/L (22-30); Chloride 108 mmol/L (98-107); Estimated CRCL calculation 70 ml/min; Estimated Glomerular Filt Rate > 60; Glucose 193 mg/dL (65-110); Potassium 3.6 mmol/L (3.4-5.0); Sodium 138 mmol/L (137-145)
[2024-03-02] MEDS: LEVOTHYROXINE SODIUM 100 MCG TABLET PO (06:11)
[2024-03-02 07:05] LABS: Glucose Point of Care 196 mg/dl (65-105)
[2024-03-02] MEDS: lisinopriL 20 MG TABLET 40 MG PO (09:02)
[2024-03-02] MEDS: VERAPAMIL HCL 180 MG TABLET ER 360 MG PO (09:03)
[2024-03-02] MEDS: LATANOPROST 0.005% OP SOLN 2.5 ML BTL 1 DROP RIGHT EYE ×2 (09:04→23:09)
[2024-03-02] MEDS: TORSEMIDE 10 MG TABLET PO (09:04)
[2024-03-02] MEDS: TIMOLOL MALEATE 0.5% OP SOLN 5 ML BOTTLE 10 DROP EACH EYE (09:04)
[2024-03-02] MEDS: SALINE 0.65% NAS SOLN 44 ML BTL 2 SPRAY NASAL (09:05)
[2024-03-02 10:28] LABS: GGT 68 U/L (3-65)
--- NOTE | 2024-03-02 10:41 | PCPTNOTE ---
attempted PT eval, pt refused stating she was just up with OT and is comfortable in bed, pt asked PT to come back later, will follow
--- NOTE | 2024-03-02 11:44 | PC.NURSE ---
Reviewed and Acknowledge charting Ana Paula Ramirez [facility]
--- NOTE | 2024-03-02 12:02 | PCPTNOTE ---
attempted 2nd PT evaluation today, pt tried to explain that she has osteoarthritis and does not want to move, PT educated pt on the importance of movement for osteoarthritis and improving pain and function, pt continue to say that her shoulder will dislocated and she is able to bend down to grab things from the floor so she feels she does not need to participate in physical therpay, PT informed pt that we will try therapy at another time when she is feeling better, will follow
[2024-03-02] MEDS: INSULIN ASPART (*BKC) 100 UNITS/ML SUB-Q ×2 (12:17→16:40)
[2024-03-02 12:21] LABS: Glucose Point of Care 295 mg/dl (65-105)
--- NOTE | 2024-03-02 12:28 | WPDGIPROGNO ---
Progress Note: A&P Assessment and Plan (1) GI bleeding: Code(s): K92.2 - Gastrointestinal hemorrhage, unspecified Status: Acute Assessment and Plan: will continue clear liquids tomorrow and re-prep for colonoscopy on monday. orders placed Subjective Date/time seen: 03/02/24 12:28 Interval history: Patient had no further bleeding. Objective Data Vital Signs Vital Signs: Vital Signs - 24 hr 03/01/24 13:34 03/01/24 15:06 03/01/24 15:16 Temperature 97.9 F Pulse Rate 93 86 83 Respiratory Rate 16 19 21 H Blood Pressure 123/76 149/77 H 144/75 H Pulse Oximetry 99 97 96 Oxygen Delivery Room Air Room Air Room Air 03/01/24 15:26 03/01/24 16:00 03/01/24 16:00 Temperature Pulse Rate 77 75 Respiratory Rate 23 H Blood Pressure 146/76 H Pulse Oximetry 100 Oxygen Delivery Room Air Room Air 03/01/24 16:00 03/01/24 18:00 03/01/24 18:50 Temperature 98.4 F 98.0 F Pulse Rate 79 83 95 Respiratory Rate 18 18 Blood Pressure 157/88 H 159/87 H Pulse Oximetry 100 100 Oxygen Delivery 03/02/24 00:00 03/01/24 20:10 03/01/24 20:00 Temperature 98 F Pulse Rate 82 95 113 H Respiratory Rate 16 18 Blood Pressure 150/71 H Pulse Oximetry 98 100 Oxygen Delivery Room Air 03/01/24 22:00 03/02/24 00:00 03/02/24 00:10 Temperature Pulse Rate 87 78 82 Respiratory Rate 16 Blood Pressure Pulse Oximetry 98 Oxygen Delivery Room Air 03/02/24 02:00 03/02/24 04:00 03/02/24 04:05 Temperature 98.6 F Pulse Rate 75 90 90 Respiratory Rate 16 16 Blood Pressure 171/78 H Pulse Oximetry 96 96 Oxygen Delivery Room Air 03/02/24 04:00 03/02/24 06:00 03/02/24 07:30 Temperature 98.8 F Pulse Rate 86 76 92 Respiratory Rate 16 Blood Pressure 145/74 H Pulse Oximetry 97 Oxygen Delivery 03/02/24 12:00 Temperature 98.1 F Pulse Rate 73 Respiratory Rate 18 Blood Pressure 138/81 Pulse Oximetry 97 Oxygen Delivery Intake/Output Intake/Output: Intake & Output 02/28/24 02/29/24 03/01/24 03/02/24 23:59 23:59 23:59 23:59 Intake Total 3660.0 860 Output Total 1150 Balance 3660.0 -290 Meds/Results Medications: Active Medications Generic Name Dose Route Start Last Admin Trade Name Freq PRN Reason Stop Dose Admin Dextrose 12.5 gm 03/01/24 09:21 Dextrose 50% 25 Gm/50 Ml Syringe IV PUSH PRN PRN Hypoglycemia Protocol Glucagon 1 mg 03/01/24 09:21 Glucagon For Inj 1 Mg Vial IM PRN PRN Hypoglycemia Protocol Glucose 15 gm 03/01/24 09:21 Glucose Oral Gel 15 Gm Of Glucse In 37.5 Gm Tube PO PRN PRN Hypoglycemia Protocol Dextrose 1,000 mls @ 100 mls/hr 03/01/24 09:21 Dextrose 5% 1,000 Ml IVPB PRN PRN Hypoglycemia Protocol Metronidazole 500 mg in 100 mls @ 100 mls/hr 03/01/24 11:00 03/02/24 12:17 Flagyl 500 Mg/Iso Soln 100 Ml IVPB Infused Q8H ANNA Infusion Ceftriaxone Sodium 1 gm in 50 mls @ 100 mls/hr 03/01/24 09:35 03/02/24 10:36 Rocephin 1 Gm/Ns 50 Ml IVPB 100 mls/hr DAILY ANNA Administration Insulin Aspart 2 - 5 units 03/01/24 12:00 03/02/24 12:17 Insulin Aspart (*Bkc) 100 Units/Ml SUB-Q 3 units TIDWM ANNA Administration Protocol Latanoprost 1 drop 03/02/24 09:00 03/02/24 09:04 Latanoprost 0.005% Op Soln 2.5 Ml Btl RIGHT EYE 1 drop DAILY ANNA Administration Levothyroxine Sodium 100 mcg 03/02/24 06:30 03/02/24 06:11 Levothyroxine Sodium 100 Mcg Tablet PO 100 mcg DAILY@0630 ANNA Administration Lisinopril 40 mg 03/02/24 09:00 03/02/24 09:02 Lisinopril 20 Mg Tablet PO 40 mg DAILY ANNA Administration Ondansetron HCl 4 mg 03/01/24 01:01 Ondansetron Inj 4 Mg/2 Ml Vial IV PUSH Q6H PRN Nausea And Vomiting Polyethylene Glycol 238 gm 03/03/24 08:00 Polyethylene Glycol 3350 238 Gm Bottle PO 03/03/24 08:01 ONCE ONE Polyethylene Glycol 238 gm 03/04/24 07:00 Polyethylene Glycol 3350 238 Gm Bottle PO 03/04/24 07:01 ONCE ONE Polyethylene Glycol 238 gm 03/03/24 20:00 Polyethylene Glycol 3350 238 Gm Bottle PO 03/03/24 20:01 ONCE ONE Sodium Chloride 2 spray 03/01/24 18:16 03/02/24 09:05 Saline 0.65% Dane Soln 44 Ml Btl NASAL 2 spray QID PRN Administration dry nasal passages Timolol Maleate 10 drop 03/02/24 09:00 03/02/24 09:04 Timolol Maleate 0.5% Op Soln 5 Ml Bottle EACH EYE 10 drop DAILY ANNA Administration Torsemide 10 mg 03/02/24 09:00 03/02/24 09:04 Torsemide 10 Mg Tablet PO 10 mg QAM ANNA Administration Verapamil HCl 360 mg 03/02/24 08:00 03/02/24 09:03 Verapamil Hcl 180 Mg Tablet Er PO 360 mg DAILY@0800 ANNA Administration Radiology Results: ITS Impressions Upper Quadrant Ultrasound 03/01/24 16:27 IMPRESSION: 1. Distended gallbladder with gallbladder sludge, gallstones and trace amount of pericholecystic fluid but without evident wall thickening and with negative sonographic Orozco sign which is equivocal for acute cholecystitis. If there is clinical concern for acute cholecystitis could consider HIDA scan for further evaluation. 2. Heterogeneous hepatic echogenicity with geographic non masslike regions of subtly decreased echogenicity in the left hepatic lobe which could be related to mild heterogeneous hepatic steatosis. Consider further evaluation with pre and postcontrast MRI for more definitive determination. Labs Labs: Laboratory Results - last 24 hr 03/01/24 03/01/24 03/01/24 10:51 13:27 18:02 WBC RBC Hgb 9.3 L Hct 28.7 L MCV MCH MCHC RDW Plt Count MPV Immature Gran % (Auto) Neut % (Auto) Lymph % (Auto) [place] % (Auto) Eos % (Auto) Baso % (Auto) Lymph # (Auto) [place] # (Auto) Eos # (Auto) Baso # (Auto) Abs Immat Gran (auto) Absolute Neuts (auto) Absolute Nucleated RBC Nucleated RBC % Sodium Potassium Chloride Carbon Dioxide Anion Gap BUN Creatinine Estim Creat Clear Calc Estimated GFR Glucose POC Capillary Glucose 138 H Hemoglobin A1c 6.8 H Calcium Total Bilirubin GGT 68 H AST ALT Alkaline Phosphatase Total Protein Albumin Hepatitis A IgM Ab Negative Hep Bs Antigen Negative Hep B Core IgM Ab Negative Hepatitis C Ab Screen Negative 03/02/24 03/02/24 03/02/24 00:25 00:43 04:16 WBC 6.1 RBC 2.70 L Hgb 8.7 L 8.5 L Hct 27.3 L 26.4 L MCV 97.8 MCH 31.5 MCHC 32.2 RDW 13.6 Plt Count 281 MPV 10.1 Immature Gran % (Auto) 0.7 H Neut % (Auto) 64.3 Lymph % (Auto) 25.1 [place] % (Auto) 7.0 Eos % (Auto) 2.6 Baso % (Auto) 0.3 Lymph # (Auto) 1.54 [place] # (Auto) 0.4 Eos # (Auto) 0.2 Baso # (Auto) 0.0 Abs Immat Gran (auto) 0.04 H Absolute Neuts (auto) 4.0 Absolute Nucleated RBC 0.000 Nucleated RBC % 0.0 Sodium 138 Potassium 3.6 Chloride 108 H Carbon Dioxide 29 Anion Gap 1 L BUN 7 D Creatinine 0.50 L Estim Creat Clear Calc 70 Estimated GFR > 60 Glucose 193 H POC Capillary Glucose 212 H Hemoglobin A1c Calcium 8.2 L Total Bilirubin 0.5 GGT AST 23 ALT 63 H Alkaline Phosphatase 146 H Total Protein 5.0 L Albumin 2.6 L Hepatitis A IgM Ab Hep Bs Antigen Hep B Core IgM Ab Hepatitis C Ab Screen 03/02/24 03/02/24 07:00 12:08 WBC RBC Hgb Hct MCV MCH MCHC RDW Plt Count MPV Immature Gran % (Auto) Neut % (Auto) Lymph % (Auto) [place] % (Auto) Eos % (Auto) Baso % (Auto) Lymph # (Auto) [place] # (Auto) Eos # (Auto) Baso # (Auto) Abs Immat Gran (auto) Absolute Neuts (auto) Absolute Nucleated RBC Nucleated RBC % Sodium Potassium Chloride Carbon Dioxide Anion Gap BUN Creatinine Estim Creat Clear Calc Estimated GFR Glucose POC Capillary Glucose 196 H 295 H Hemoglobin A1c Calcium Total Bilirubin GGT AST ALT Alkaline Phosphatase Total Protein Albumin Hepatitis A IgM Ab Hep Bs Antigen Hep B Core IgM Ab Hepatitis C Ab Screen
--- NOTE | 2024-03-02 12:34 | P.PNIM_ITS ---
Progress Note: A&P Assessment and Plan (1) GI bleeding: Code(s): K92.2 - Gastrointestinal hemorrhage, unspecified Status: Acute Assessment and Plan: Patient presents with bright red blood per rectum. CT scan shows sigmoid colon wall thickening. Could be inflammation from infection but no pain, fever, or elevated white count. Consider neoplastic etiology. ASA and Plavix held. Iron studies normal in October. Hgb has dropped to 8.5 now. GI consulted. Colonoscopy peformed 03/01 but incomplete due to poor prep. Plan for longer prep this weekend. Passing blood but probably old blood. Stop IV fluids. Continue diuretic today but then hold since she will be getting prep [facility]. Transfuse as needed. (2) Colitis: Code(s): K52.9 - Noninfective gastroenteritis and colitis, unspecified Status: Acute Assessment and Plan: Patient with bright red blood per rectum and found to have sigmoid wall thickening, possibly colitis. Antibiotics started in the emergency room. Continue abx for now. (3) Diabetes mellitus: Code(s): E11.9 - Type 2 diabetes mellitus without complications Status: Acute Assessment and Plan: A1c 6.8%. The patient's blood glucose was reviewed on 03/02 Glucose remains elevated at times. Continue AccuCheks covering with sliding scale. Hypoglycemia protocol available as needed. Continue to monitor (4) Hypertension: Code(s): I10 - Essential (primary) hypertension Status: Acute Assessment and Plan: Patient's blood pressure was reviewed on 03/02 Blood pressure remains well controlled. Will continue current medications. (5) Hypothyroidism: Code(s): E03.9 - Hypothyroidism, unspecified Status: Acute Assessment and Plan: Patient is followed by Endocrinology. Patient states they recently decreased her levothyroxine to 100 mcg daily. Continue Levothyroxine (6) PAD (peripheral artery disease): Code(s): I73.9 - Peripheral vascular disease, unspecified Status: Acute Assessment and Plan: Patient with known peripheral arterial disease with recent balloon angioplasty in July to the left lower extremity. She is also being followed for carotid stenosis. No stents placed. Okay to hold Plavix and aspirin until etiology is determined of her rectal bleeding. Resume these medications when safe to do so. (7) Elevated LFTs: Code(s): R79.89 - Other specified abnormal findings of blood chemistry Status: Acute Assessment and Plan: ALT 114 and AP 206 on admission. Level have not been elevated before. Liver normal by CT and no pain on exam. Hepatitis panel negative. RUQ US showing distended GB with gallbladder sludge, gallstones and trace amount of pericholecystic fluid but without evident wall thickening and with negative sonographic Orozco sign which is equivocal for acute cholecystitis. Heterogeneous hepatic echogenicity with geographic non masslike regions of subtly decreased echogenicity in the left hepatic lobe which could be related to mild heterogeneous hepatic steatosis. Levels better. Consider MRI of liver. No clear evidence to suggest cholecystitis. Follow Plan DVT prophylaxis -SCDs Code status -DNR Subjective Date/time seen: 03/02/24 12:34 Interval history: 79yo female with CAD, DM and HTN who presents with 3 day hx of bright red blood per rectum. Feeling well. Having stools with dark blood here. No CP or SOB. No issues overnight. Exam Narrative: AF 98.1 138/81 73 18 97% ra Gen - NARD Chest - CTA bilaterally, nml RR CV - RRR. S1-S2. Tele showing occasional PVCs Abd - Soft. Nontender. Nondistended. Positive bowel sounds. Ext - no pedal edema. Psych - normal mood and affect. Patient is pleasant and cooperative. Skin - warm and dry. Objective Data Vital Signs Vital Signs: Vital Signs - 24 hr 03/01/24 13:34 03/01/24 15:06 03/01/24 15:16 Temperature 97.9 F Pulse Rate 93 86 83 Respiratory Rate 16 19 21 H Blood Pressure 123/76 149/77 H 144/75 H Pulse Oximetry 99 97 96 Oxygen Delivery Room Air Room Air Room Air 03/01/24 15:26 03/01/24 16:00 03/01/24 16:00 Temperature Pulse Rate 77 75 Respiratory Rate 23 H Blood Pressure 146/76 H Pulse Oximetry 100 Oxygen Delivery Room Air Room Air 03/01/24 16:00 03/01/24 18:00 03/01/24 18:50 Temperature 98.4 F 98.0 F Pulse Rate 79 83 95 Respiratory Rate 18 18 Blood Pressure 157/88 H 159/87 H Pulse Oximetry 100 100 Oxygen Delivery 03/02/24 00:00 03/01/24 20:10 03/01/24 20:00 Temperature 98 F Pulse Rate 82 95 113 H Respiratory Rate 16 18 Blood Pressure 150/71 H Pulse Oximetry 98 100 Oxygen Delivery Room Air 03/01/24 22:00 03/02/24 00:00 03/02/24 00:10 Temperature Pulse Rate 87 78 82 Respiratory Rate 16 Blood Pressure Pulse Oximetry 98 Oxygen Delivery Room Air 03/02/24 02:00 03/02/24 04:00 03/02/24 04:05 Temperature 98.6 F Pulse Rate 75 90 90 Respiratory Rate 16 16 Blood Pressure 171/78 H Pulse Oximetry 96 96 Oxygen Delivery Room Air 03/02/24 04:00 03/02/24 06:00 03/02/24 07:30 Temperature 98.8 F Pulse Rate 86 76 92 Respiratory Rate 16 Blood Pressure 145/74 H Pulse Oximetry 97 Oxygen Delivery 03/02/24 12:00 Temperature 98.1 F Pulse Rate 73 Respiratory Rate 18 Blood Pressure 138/81 Pulse Oximetry 97 Oxygen Delivery Intake/Output Intake/Output: Intake & Output 02/28/24 02/29/24 03/01/24 03/02/24 23:59 23:59 23:59 23:59 Intake Total 3660.0 860 Output Total 1150 Balance 3660.0 -290 Meds/Results Medications: Active Medications Generic Name Dose Route Start Last Admin Trade Name Freq PRN Reason Stop Dose Admin Dextrose 12.5 gm 03/01/24 09:21 Dextrose 50% 25 Gm/50 Ml Syringe IV PUSH PRN PRN Hypoglycemia Protocol Glucagon 1 mg 03/01/24 09:21 Glucagon For Inj 1 Mg Vial IM PRN PRN Hypoglycemia Protocol Glucose 15 gm 03/01/24 09:21 Glucose Oral Gel 15 Gm Of Glucse In 37.5 Gm Tube PO PRN PRN Hypoglycemia Protocol Dextrose 1,000 mls @ 100 mls/hr 03/01/24 09:21 Dextrose 5% 1,000 Ml IVPB PRN PRN Hypoglycemia Protocol Metronidazole 500 mg in 100 mls @ 100 mls/hr 03/01/24 11:00 03/02/24 12:17 Flagyl 500 Mg/Iso Soln 100 Ml IVPB Infused Q8H ANNA Infusion Ceftriaxone Sodium 1 gm in 50 mls @ 100 mls/hr 03/01/24 09:35 03/02/24 10:36 Rocephin 1 Gm/Ns 50 Ml IVPB 100 mls/hr DAILY ANNA Administration Insulin Aspart 2 - 5 units 03/01/24 12:00 03/02/24 12:17 Insulin Aspart (*Bkc) 100 Units/Ml SUB-Q 3 units TIDWM ANNA Administration Protocol Latanoprost 1 drop 03/02/24 09:00 03/02/24 09:04 Latanoprost 0.005% Op Soln 2.5 Ml Btl RIGHT EYE 1 drop DAILY ANNA Administration Levothyroxine Sodium 100 mcg 03/02/24 06:30 03/02/24 06:11 Levothyroxine Sodium 100 Mcg Tablet PO 100 mcg DAILY@0630 ANNA Administration Lisinopril 40 mg 03/02/24 09:00 03/02/24 09:02 Lisinopril 20 Mg Tablet PO 40 mg DAILY ANNA Administration Ondansetron HCl 4 mg 03/01/24 01:01 Ondansetron Inj 4 Mg/2 Ml Vial IV PUSH Q6H PRN Nausea And Vomiting Polyethylene Glycol 238 gm 03/03/24 08:00 Polyethylene Glycol 3350 238 Gm Bottle PO 03/03/24 08:01 ONCE ONE Polyethylene Glycol 238 gm 03/04/24 07:00 Polyethylene Glycol 3350 238 Gm Bottle PO 03/04/24 07:01 ONCE ONE Polyethylene Glycol 238 gm 03/03/24 20:00 Polyethylene Glycol 3350 238 Gm Bottle PO 03/03/24 20:01 ONCE ONE Sodium Chloride 2 spray 03/01/24 18:16 03/02/24 09:05 Saline 0.65% Dane Soln 44 Ml Btl NASAL 2 spray QID PRN Administration dry nasal passages Timolol Maleate 10 drop 03/02/24 09:00 03/02/24 09:04 Timolol Maleate 0.5% Op Soln 5 Ml Bottle EACH EYE 10 drop DAILY ANNA Administration Torsemide 10 mg 03/02/24 09:00 03/02/24 09:04 Torsemide 10 Mg Tablet PO 10 mg QAM ANNA Administration Verapamil HCl 360 mg 03/02/24 08:00 03/02/24 09:03 Verapamil Hcl 180 Mg Tablet Er PO 360 mg DAILY@0800 ANNA Administration Radiology Results: ITS Impressions Upper Quadrant Ultrasound 03/01/24 16:27 IMPRESSION: 1. Distended gallbladder with gallbladder sludge, gallstones and trace amount of pericholecystic fluid but without evident wall thickening and with negative sonographic Orozco sign which is equivocal for acute cholecystitis. If there is clinical concern for acute cholecystitis could consider HIDA scan for further evaluation. 2. Heterogeneous hepatic echogenicity with geographic non masslike regions of subtly decreased echogenicity in the left hepatic lobe which could be related to mild heterogeneous hepatic steatosis. Consider further evaluation with pre and postcontrast MRI for more definitive determination. Labs Labs: Laboratory Results - last 24 hr 03/01/24 03/01/24 03/01/24 10:51 13:27 18:02 WBC RBC Hgb 9.3 L Hct 28.7 L MCV MCH MCHC RDW Plt Count MPV Immature Gran % (Auto) Neut % (Auto) Lymph % (Auto) Douglas % (Auto) Eos % (Auto) Baso % (Auto) Lymph # (Auto) Douglas # (Auto) Eos # (Auto) Baso # (Auto) Abs Immat Gran (auto) Absolute Neuts (auto) Absolute Nucleated RBC Nucleated RBC % Sodium Potassium Chloride Carbon Dioxide Anion Gap BUN Creatinine Estim Creat Clear Calc Estimated GFR Glucose POC Capillary Glucose 138 H Hemoglobin A1c 6.8 H Calcium Total Bilirubin GGT 68 H AST ALT Alkaline Phosphatase Total Protein Albumin Hepatitis A IgM Ab Negative Hep Bs Antigen Negative Hep B Core IgM Ab Negative Hepatitis C Ab Screen Negative 03/02/24 03/02/24 03/02/24 00:25 00:43 04:16 WBC 6.1 RBC 2.70 L Hgb 8.7 L 8.5 L Hct 27.3 L 26.4 L MCV 97.8 MCH 31.5 MCHC 32.2 RDW 13.6 Plt Count 281 MPV 10.1 Immature Gran % (Auto) 0.7 H Neut % (Auto) 64.3 Lymph % (Auto) 25.1 Douglas % (Auto) 7.0 Eos % (Auto) 2.6 Baso % (Auto) 0.3 Lymph # (Auto) 1.54 Douglas # (Auto) 0.4 Eos # (Auto) 0.2 Baso # (Auto) 0.0 Abs Immat Gran (auto) 0.04 H Absolute Neuts (auto) 4.0 Absolute Nucleated RBC 0.000 Nucleated RBC % 0.0 Sodium 138 Potassium 3.6 Chloride 108 H Carbon Dioxide 29 Anion Gap 1 L BUN 7 D Creatinine 0.50 L Estim Creat Clear Calc 70 Estimated GFR > 60 Glucose 193 H POC Capillary Glucose 212 H Hemoglobin A1c Calcium 8.2 L Total Bilirubin 0.5 GGT AST 23 ALT 63 H Alkaline Phosphatase 146 H Total Protein 5.0 L Albumin 2.6 L Hepatitis A IgM Ab Hep Bs Antigen Hep B Core IgM Ab Hepatitis C Ab Screen 03/02/24 03/02/24 07:00 12:08 WBC RBC Hgb Hct MCV MCH MCHC RDW Plt Count MPV Immature Gran % (Auto) Neut % (Auto) Lymph % (Auto) Douglas % (Auto) Eos % (Auto) Baso % (Auto) Lymph # (Auto) Douglas # (Auto) Eos # (Auto) Baso # (Auto) Abs Immat Gran (auto) Absolute Neuts (auto) Absolute Nucleated RBC Nucleated RBC % Sodium Potassium Chloride Carbon Dioxide Anion Gap BUN Creatinine Estim Creat Clear Calc Estimated GFR Glucose POC Capillary Glucose 196 H 295 H Hemoglobin A1c Calcium Total Bilirubin GGT AST ALT Alkaline Phosphatase Total Protein Albumin Hepatitis A IgM Ab Hep Bs Antigen Hep B Core IgM Ab Hepatitis C Ab Screen
[2024-03-02 16:34] LABS: Glucose Point of Care 243 mg/dl (65-105)
[2024-03-02 18:40] LABS: Glucose Point of Care 377 mg/dl (65-105)
[2024-03-02 21:04] LABS: Glucose Point of Care 323 mg/dl (65-105)
[2024-03-02] MEDS: INSULIN GLARGINE (*BKC) 100 UNITS/ML 10 UNITS SUB-Q (21:08)
[2024-03-02] MEDS: TIMOLOL MALEATE 0.5% OP SOLN 5 ML BOTTLE 1 DROP EACH EYE (23:09)
[2024-03-03] VITALS (17 sets, daily range): BP systolic 111–166; BP diastolic 47–66; PULSE 54–83; RESP 16–20; TEMP 36.4–36.8; O2SAT 92–99
[2024-03-03] LABS: Glucose Point of Care 249 mg/dl (65-105)
[2024-03-03] MEDS: metroNIDAZOLE 500 MG/ISO 100ML 500 MG/100 ML BAG 100 MG IVPB ×3 (03:54→18:44)
[2024-03-03 05:39] LABS: Hematocrit 27.6 % (37.0-47.0); Hemoglobin 8.7 g/dL (12.0-15.0); Mean Corpuscular HGB Conc 31.5 g/dl (32-36); Mean Corpuscular Hemoglobin 31.2 pg (26-34); Mean Corpuscular Volume 98.9 fl (80-100); Mean Platelet Volume 10.1 fl (7.4-10.4); Platelet Count Result 299 k/mm3 (150-375); Red Blood Count 2.79 M/mm3 (4.2-5.4); Red Cell Distribution Width 13.7 % (11.5-14.5); White Blood Count 5.9 K/mm3 (4.5-10.0)
[2024-03-03 05:50] LABS: Anion Gap 2 mmol/L (4-12); Blood Urea Nitrogen 6 mg/dL (7-17); Calcium 8.3 mg/dL (8.4-10.2); Carbon Dioxide 30 mmol/L (22-30); Chloride 106 mmol/L (98-107); Estimated CRCL calculation 70 ml/min; Estimated Glomerular Filt Rate > 60; Glucose 188 mg/dL (65-110); Potassium 3.3 mmol/L (3.4-5.0); Sodium 138 mmol/L (137-145)
[2024-03-03 06:01] LABS: Glucose Point of Care 190 mg/dl (65-105)
[2024-03-03] MEDS: LEVOTHYROXINE SODIUM 100 MCG TABLET PO (06:03)
[2024-03-03] MEDS: VERAPAMIL HCL 180 MG TABLET ER 360 MG PO (09:10)
[2024-03-03] MEDS: POTASSIUM CHLORIDE 20 MEQ ER TABLET 40 MEQ PO (09:11)
[2024-03-03] MEDS: polyethylene glycoL 3350 238 GM BOTTLE PO ×2 (09:11→18:45)
[2024-03-03] MEDS: lisinopriL 20 MG TABLET 40 MG PO (09:11)
[2024-03-03] MEDS: TIMOLOL MALEATE 0.5% OP SOLN 5 ML BOTTLE 1 DROP EACH EYE ×2 (09:12→21:13)
--- NOTE | 2024-03-03 10:11 | P.PNGI_ITS ---
Progress Note: A&P Assessment and Plan (1) GI bleeding: Code(s): K92.2 - Gastrointestinal hemorrhage, unspecified Status: Acute Assessment and Plan: No further active bleeding, currently on clear liquids and starting longer prep in anticipation for colonoscopy tomorrow afternoon, after which she can be discharged if no recurrence. Subjective Date/time seen: 03/03/24 10:11 Objective Data Vital Signs Vital Signs: Vital Signs - 24 hr 03/02/24 12:00 03/02/24 12:00 03/02/24 12:00 Temperature 98.1 F Pulse Rate 73 73 Respiratory Rate 18 Blood Pressure 138/81 Pulse Oximetry 97 Oxygen Delivery Room Air 03/02/24 14:00 03/02/24 16:00 03/02/24 16:00 Temperature 98.9 F Pulse Rate 68 67 66 Respiratory Rate 20 Blood Pressure 142/68 H Pulse Oximetry 98 Oxygen Delivery 03/02/24 16:00 03/02/24 18:00 03/02/24 21:09 Temperature 98.9 F Pulse Rate 68 58 L Respiratory Rate 20 Blood Pressure 124/56 L Pulse Oximetry 94 Oxygen Delivery Room Air 03/02/24 23:37 03/02/24 20:40 03/03/24 00:00 Temperature 98.9 F Pulse Rate 58 L 58 L 58 L Respiratory Rate 20 20 20 Blood Pressure 121/53 L Pulse Oximetry 94 94 94 Oxygen Delivery Room Air Room Air 03/03/24 04:58 03/03/24 04:00 03/02/24 20:00 Temperature 98.2 F Pulse Rate 67 67 57 L Respiratory Rate 20 20 Blood Pressure 137/63 Pulse Oximetry 99 99 Oxygen Delivery Room Air 03/02/24 22:00 03/03/24 00:00 03/03/24 02:00 Temperature Pulse Rate 59 L 66 63 Respiratory Rate Blood Pressure Pulse Oximetry Oxygen Delivery 03/03/24 04:00 03/03/24 06:00 03/03/24 07:58 Temperature 98.2 F Pulse Rate 69 62 69 Respiratory Rate 16 Blood Pressure 124/59 L Pulse Oximetry 92 Oxygen Delivery Intake/Output Intake/Output: Intake & Output 02/29/24 03/01/24 03/02/24 03/03/24 23:59 23:59 23:59 23:59 Intake Total 3660.0 2040 450 Output Total 2600 250 Balance 3660.0 -560 200 Meds/Results Medications: Active Medications Generic Name Dose Route Start Last Admin Trade Name Freq PRN Reason Stop Dose Admin Dextrose 12.5 gm 03/01/24 09:21 Dextrose 50% 25 Gm/50 Ml Syringe IV PUSH PRN PRN Hypoglycemia Protocol Glucagon 1 mg 03/01/24 09:21 Glucagon For Inj 1 Mg Vial IM PRN PRN Hypoglycemia Protocol Glucose 15 gm 03/01/24 09:21 Glucose Oral Gel 15 Gm Of Glucse In 37.5 Gm Tube PO PRN PRN Hypoglycemia Protocol Dextrose 1,000 mls @ 100 mls/hr 03/01/24 09:21 Dextrose 5% 1,000 Ml IVPB PRN PRN Hypoglycemia Protocol Metronidazole 500 mg in 100 mls @ 100 mls/hr 03/01/24 11:00 03/03/24 10:00 Flagyl 500 Mg/Iso Soln 100 Ml IVPB 100 mls/hr Q8H ANNA Administration Ceftriaxone Sodium 1 gm in 50 mls @ 100 mls/hr 03/01/24 09:35 03/03/24 09:11 Rocephin 1 Gm/Ns 50 Ml IVPB 100 mls/hr DAILY ANNA Administration Insulin Aspart 2 - 5 units 03/01/24 12:00 03/03/24 07:44 Insulin Aspart (*Bkc) 100 Units/Ml SUB-Q Not Given TIDWM [facility] Protocol Insulin Glargine 10 units 03/02/24 21:00 03/02/24 21:08 Insulin Glargine (*Bkc) 100 Units/Ml 0.15 units/kg (10 units) 10 units SUB-Q Administration HS ANNA Latanoprost 1 drop 03/02/24 21:15 03/02/24 23:09 Latanoprost 0.005% Op Soln 2.5 Ml Btl RIGHT EYE 1 drop HS ANNA Administration Levothyroxine Sodium 100 mcg 03/02/24 06:30 03/03/24 06:03 Levothyroxine Sodium 100 Mcg Tablet PO 100 mcg DAILY@0630 ANNA Administration Lisinopril 40 mg 03/02/24 09:00 03/03/24 09:11 Lisinopril 20 Mg Tablet PO 40 mg DAILY ANNA Administration Ondansetron HCl 4 mg 03/01/24 01:01 Ondansetron Inj 4 Mg/2 Ml Vial IV PUSH Q6H PRN Nausea And Vomiting Polyethylene Glycol 238 gm 03/04/24 07:00 Polyethylene Glycol 3350 238 Gm Bottle PO 03/04/24 07:01 ONCE ONE Polyethylene Glycol 238 gm 03/03/24 20:00 Polyethylene Glycol 3350 238 Gm Bottle PO 03/03/24 20:01 ONCE ONE Sodium Chloride 2 spray 03/01/24 18:16 03/02/24 09:05 Saline 0.65% Dane Soln 44 Ml Btl NASAL 2 spray QID PRN Administration dry nasal passages Timolol Maleate 1 drop 03/02/24 23:10 03/03/24 09:12 Timolol Maleate 0.5% Op Soln 5 Ml Bottle EACH EYE 1 drop Q12HR ANNA Administration Torsemide 10 mg 03/02/24 09:00 03/02/24 09:04 Torsemide 10 Mg Tablet PO 10 mg QAM ANNA Administration Verapamil HCl 360 mg 03/02/24 08:00 03/03/24 09:10 Verapamil Hcl 180 Mg Tablet Er PO 360 mg DAILY@0800 ANNA Administration Radiology Results: ITS Impressions Upper Quadrant Ultrasound 03/01/24 16:27 IMPRESSION: 1. Distended gallbladder with gallbladder sludge, gallstones and trace amount of pericholecystic fluid but without evident wall thickening and with negative sonographic Orozco sign which is equivocal for acute cholecystitis. If there is clinical concern for acute cholecystitis could consider HIDA scan for further evaluation. 2. Heterogeneous hepatic echogenicity with geographic non masslike regions of subtly decreased echogenicity in the left hepatic lobe which could be related to mild heterogeneous hepatic steatosis. Consider further evaluation with pre and postcontrast MRI for more definitive determination. Labs Labs: Laboratory Results - last 24 hr 03/01/24 03/02/24 03/02/24 10:51 12:08 16:30 WBC RBC Hgb Hct MCV MCH MCHC RDW Plt Count MPV Sodium Potassium Chloride Carbon Dioxide Anion Gap BUN Creatinine Estim Creat Clear Calc Estimated GFR Glucose POC Capillary Glucose 295 H 243 H Calcium GGT 68 H 03/02/24 03/02/24 03/02/24 18:29 21:02 23:57 WBC RBC Hgb Hct MCV MCH MCHC RDW Plt Count MPV Sodium Potassium Chloride Carbon Dioxide Anion Gap BUN Creatinine Estim Creat Clear Calc Estimated GFR Glucose POC Capillary Glucose 377 H 323 H 249 H Calcium GGT 03/03/24 03/03/24 04:27 05:59 WBC 5.9 RBC 2.79 L Hgb 8.7 L Hct 27.6 L MCV 98.9 MCH 31.2 MCHC 31.5 L RDW 13.7 Plt Count 299 MPV 10.1 Sodium 138 Potassium 3.3 L Chloride 106 Carbon Dioxide 30 Anion Gap 2 L BUN 6 L Creatinine 0.50 L Estim Creat Clear Calc 70 Estimated GFR > 60 Glucose 188 H POC Capillary Glucose 190 H Calcium 8.3 L GGT
[2024-03-03] MEDS: INSULIN ASPART (*BKC) 100 UNITS/ML 10 UNITS SUB-Q (11:44)
[2024-03-03 11:51] LABS: Glucose Point of Care 429 mg/dl (65-105)
--- NOTE | 2024-03-03 13:07 | PCPTNOTE ---
attempted PT eval for 2nd day in a row, pt refused saying she just got out of bed and will not get out again, educated on the importance of working with physical therapy and pt states she has been getting up with nursing staff, will follow
[2024-03-03 14:33] LABS: Glucose Point of Care 403 mg/dl (65-105)
[2024-03-03 16:24] LABS: Glucose Point of Care 368 mg/dl (65-105)
--- NOTE | 2024-03-03 16:32 | P.PNIM_ITS ---
Progress Note: A&P Assessment and Plan (1) GI bleeding: Code(s): K92.2 - Gastrointestinal hemorrhage, unspecified Status: Acute Assessment and Plan: Patient presents with bright red blood per rectum. CT scan shows sigmoid colon wall thickening. Could be inflammation from infection but no pain, fever, or elevated white count. Consider neoplastic etiology. ASA and Plavix held. Iron studies normal in October. Hgb has dropped to 8.5 but now stable GI consulted. Colonoscopy performed 03/01 but incomplete due to poor prep. Plan for longer prep this weekend. She was passing blood but this has resolved. IV fluids stopped. Diuretic held today. Bowel prep per GI. Serial HH. Transfuse as needed. (2) Colitis: Code(s): K52.9 - Noninfective gastroenteritis and colitis, unspecified Status: Acute Assessment and Plan: Patient with bright red blood per rectum and found to have sigmoid wall thickening, possibly colitis. Antibiotics started in the emergency room. Follow up on colonoscopy findings. Continue abx for now. (3) Diabetes mellitus: Code(s): E11.9 - Type 2 diabetes mellitus without complications Status: Acute Assessment and Plan: A1c 6.8%. The patient's blood glucose was reviewed on 03/03 Glucose remains elevated related to prep with Gatorade. No diabetic options per dietary RN called GI to clarify prep amount and asked about alternative fluids. He recommended using water instead so should help control glucose better. Continue AccuCheks covering with sliding scale. Hypoglycemia protocol available as needed. Close glucose checks until glucose better. Continue to monitor (4) Hypertension: Code(s): I10 - Essential (primary) hypertension Status: Acute Assessment and Plan: Patient's blood pressure was reviewed on 03/03 Blood pressure remains well controlled. Will continue to monitor (5) Hypothyroidism: Code(s): E03.9 - Hypothyroidism, unspecified Status: Acute Assessment and Plan: Patient is followed by Endocrinology. Patient states they recently decreased her levothyroxine to 100 mcg daily. Continue Levothyroxine (6) PAD (peripheral artery disease): Code(s): I73.9 - Peripheral vascular disease, unspecified Status: Acute Assessment and Plan: Patient with known peripheral arterial disease with recent balloon angioplasty in July to the left lower extremity. She is also being followed for carotid stenosis. No hx of stents placed. Okay to hold Plavix and aspirin until etiology is determined of her rectal bleeding. Resume these medications when safe to do so. (7) Elevated LFTs: Code(s): R79.89 - Other specified abnormal findings of blood chemistry Status: Acute Assessment and Plan: ALT 114 and AP 206 on admission. Level have not been elevated before. Liver normal by CT and no pain on exam. Hepatitis panel negative. RUQ US showing distended GB with gallbladder sludge, gallstones and trace amount of pericholecystic fluid but without evident wall thickening and with negative sonographic Orozco sign which is equivocal for acute cholecystitis. Heterogeneous hepatic echogenicity with geographic non masslike regions of subtly decreased echogenicity in the left hepatic lobe which could be related to mild heterogeneous hepatic steatosis. Levels better. No clinical concerns for acute cholecystitis. Consider MRI of liver. Follow Plan DVT prophylaxis -SCDs Code status -Full Subjective Date/time seen: 03/03/24 16:32 Interval history: 79yo female with CAD, DM and HTN who presents with 3 day hx of bright red blood per rectum. Slept well. Eating okay. +BMs but no blood. No CP or SOB. No abd pain. Exam Narrative: AF 98.2 122/66 54 20 95% ra Gen - NARD Chest - CTA bilaterally, nml RR CV - RRR +murmur. S1-S2. Tele showing occasional PVCs Abd - Soft. Nontender. Nondistended. Positive bowel sounds. Ext - no pedal edema. Psych - normal mood and affect. Skin - warm and dry. Objective Data Vital Signs Vital Signs: Vital Signs - 24 hr 03/02/24 18:00 03/02/24 21:09 03/02/24 23:37 Temperature 98.9 F 98.9 F Pulse Rate 68 58 L 58 L Respiratory Rate 20 20 Blood Pressure 124/56 L 121/53 L Pulse Oximetry 94 94 Oxygen Delivery 03/02/24 20:40 03/03/24 00:00 03/03/24 04:58 Temperature 98.2 F Pulse Rate 58 L 58 L 67 Respiratory Rate 20 20 20 Blood Pressure 137/63 Pulse Oximetry 94 94 99 Oxygen Delivery Room Air Room Air 03/03/24 04:00 03/02/24 20:00 03/02/24 22:00 Temperature Pulse Rate 67 57 L 59 L Respiratory Rate 20 Blood Pressure Pulse Oximetry 99 Oxygen Delivery Room Air 03/03/24 00:00 03/03/24 02:00 03/03/24 04:00 Temperature Pulse Rate 66 63 69 Respiratory Rate Blood Pressure Pulse Oximetry Oxygen Delivery 03/03/24 06:00 03/03/24 07:58 03/03/24 08:00 Temperature 98.2 F Pulse Rate 62 69 Respiratory Rate 16 Blood Pressure 124/59 L Pulse Oximetry 92 Oxygen Delivery Room Air 03/03/24 08:00 03/03/24 10:00 03/03/24 11:58 Temperature 98.1 F Pulse Rate 65 83 66 Respiratory Rate 20 Blood Pressure 111/47 L Pulse Oximetry 99 Oxygen Delivery 03/03/24 12:00 03/03/24 12:00 03/03/24 14:00 Temperature Pulse Rate 62 56 L Respiratory Rate Blood Pressure Pulse Oximetry Oxygen Delivery Room Air 03/03/24 16:00 Temperature 98.2 F Pulse Rate 54 L Respiratory Rate 20 Blood Pressure 122/66 Pulse Oximetry 95 Oxygen Delivery Intake/Output Intake/Output: Intake & Output 02/29/24 03/01/24 03/02/24 03/03/24 23:59 23:59 23:59 23:59 Intake Total 3660.0 2040 1060 Output Total 2600 250 Balance 3660.0 -560 810 Meds/Results Medications: Active Medications Generic Name Dose Route Start Last Admin Trade Name Freq PRN Reason Stop Dose Admin Dextrose 12.5 gm 03/01/24 09:21 Dextrose 50% 25 Gm/50 Ml Syringe IV PUSH PRN PRN Hypoglycemia Protocol Glucagon 1 mg 03/01/24 09:21 Glucagon For Inj 1 Mg Vial IM PRN PRN Hypoglycemia Protocol Glucose 15 gm 03/01/24 09:21 Glucose Oral Gel 15 Gm Of Glucse In 37.5 Gm Tube PO PRN PRN Hypoglycemia Protocol Dextrose 1,000 mls @ 100 mls/hr 03/01/24 09:21 Dextrose 5% 1,000 Ml IVPB PRN PRN Hypoglycemia Protocol Metronidazole 500 mg in 100 mls @ 100 mls/hr 03/01/24 11:00 03/03/24 11:00 Flagyl 500 Mg/Iso Soln 100 Ml IVPB Infused Q8H [facility] Infusion Ceftriaxone Sodium 1 gm in 50 mls @ 100 mls/hr 03/01/24 09:35 03/03/24 09:41 Rocephin 1 Gm/Ns 50 Ml IVPB Infused DAILY [facility] Infusion Insulin Aspart 2 - 5 units 03/01/24 12:00 03/03/24 11:44 Insulin Aspart (*Bkc) 100 Units/Ml SUB-Q Not Given TIDWM [facility] Protocol Insulin Glargine 10 units 03/02/24 21:00 03/02/24 21:08 Insulin Glargine (*Bkc) 100 Units/Ml 0.15 units/kg (10 units) 10 units SUB-Q Administration HS ANNA Latanoprost 1 drop 03/02/24 21:15 03/02/24 23:09 Latanoprost 0.005% Op Soln 2.5 Ml Btl RIGHT EYE 1 drop HS [facility] Administration Levothyroxine Sodium 100 mcg 03/02/24 06:30 03/03/24 06:03 Levothyroxine Sodium 100 Mcg Tablet PO 100 mcg DAILY@0630 [facility] Administration Lisinopril 40 mg 03/02/24 09:00 03/03/24 09:11 Lisinopril 20 Mg Tablet PO 40 mg DAILY [facility] Administration Ondansetron HCl 4 mg 03/01/24 01:01 Ondansetron Inj 4 Mg/2 Ml Vial IV PUSH Q6H PRN Nausea And Vomiting Polyethylene Glycol 238 gm 03/04/24 07:00 Polyethylene Glycol 3350 238 Gm Bottle PO 03/04/24 07:01 ONCE ONE Polyethylene Glycol 238 gm 03/03/24 20:00 Polyethylene Glycol 3350 238 Gm Bottle PO 03/03/24 20:01 ONCE ONE Sodium Chloride 2 spray 03/01/24 18:16 03/02/24 09:05 Saline 0.65% Dane Soln 44 Ml Btl NASAL 2 spray QID PRN Administration dry nasal passages Timolol Maleate 1 drop 03/02/24 23:10 03/03/24 09:12 Timolol Maleate 0.5% Op Soln 5 Ml Bottle EACH EYE 1 drop Q12HR ANNA Administration Torsemide 10 mg 03/02/24 09:00 03/02/24 09:04 Torsemide 10 Mg Tablet PO 10 mg QAM AN[facility] Administration Verapamil HCl 360 mg 03/02/24 08:00 03/03/24 09:10 Verapamil Hcl 180 Mg Tablet Er PO 360 mg DAILY@0800 [facility] Administration Radiology Results: ITS Impressions Upper Quadrant Ultrasound 03/01/24 16:27 IMPRESSION: 1. Distended gallbladder with gallbladder sludge, gallstones and trace amount of pericholecystic fluid but without evident wall thickening and with negative sonographic Orozco sign which is equivocal for acute cholecystitis. If there is clinical concern for acute cholecystitis could consider HIDA scan for further evaluation. 2. Heterogeneous hepatic echogenicity with geographic non masslike regions of subtly decreased echogenicity in the left hepatic lobe which could be related to mild heterogeneous hepatic steatosis. Consider further evaluation with pre and postcontrast MRI for more definitive determination. Labs Labs: Laboratory Results - last 24 hr 03/02/24 03/02/24 03/02/24 16:30 18:29 21:02 WBC RBC Hgb Hct MCV MCH MCHC RDW Plt Count MPV Sodium Potassium Chloride Carbon Dioxide Anion Gap BUN Creatinine Estim Creat Clear Calc Estimated GFR Glucose POC Capillary Glucose 243 H 377 H 323 H Calcium 03/02/24 03/03/24 03/03/24 23:57 04:27 05:59 WBC 5.9 RBC 2.79 L Hgb 8.7 L Hct 27.6 L MCV 98.9 MCH 31.2 MCHC 31.5 L RDW 13.7 Plt Count 299 MPV 10.1 Sodium 138 Potassium 3.3 L Chloride 106 Carbon Dioxide 30 Anion Gap 2 L BUN 6 L Creatinine 0.50 L Estim Creat Clear Calc 70 Estimated GFR > 60 Glucose 188 H POC Capillary Glucose 249 H 190 H Calcium 8.3 L 03/03/24 03/03/24 03/03/24 11:29 14:30 16:20 WBC RBC Hgb Hct MCV MCH MCHC RDW Plt Count MPV Sodium Potassium Chloride Carbon Dioxide Anion Gap BUN Creatinine Estim Creat Clear Calc Estimated GFR Glucose POC Capillary Glucose 429 H 403 H 368 H Calcium
[2024-03-03] MEDS: INSULIN ASPART (*BKC) 100 UNITS/ML SUB-Q (17:02)
[2024-03-03 18:19] LABS: Glucose Point of Care 392 mg/dl (65-105)
[2024-03-03 20:40] LABS: Glucose Point of Care 291 mg/dl (65-105)
[2024-03-03] MEDS: LATANOPROST 0.005% OP SOLN 2.5 ML BTL 1 DROP RIGHT EYE (21:13)
[2024-03-03] MEDS: INSULIN GLARGINE (*BKC) 100 UNITS/ML 10 UNITS SUB-Q (21:14)
[2024-03-03 21:51] LABS: Glucose Point of Care 300 mg/dl (65-105)
[2024-03-04] VITALS (15 sets, daily range): BP systolic 100–164; BP diastolic 50–84; PULSE 59–99; RESP 18–20; TEMP 36.5–37.1; O2SAT 98–100
[2024-03-04 00:03] LABS: Glucose Point of Care 375 mg/dl (65-105)
[2024-03-04 02:03] LABS: Glucose Point of Care 320 mg/dl (65-105)
[2024-03-04] MEDS: metroNIDAZOLE 500 MG/ISO 100ML 500 MG/100 ML BAG 100 MG IVPB ×2 (03:00→12:01)
[2024-03-04 05:04] LABS: Hemoglobin 9.4 g/dL (12.0-15.0); Mean Corpuscular HGB Conc 32.4 g/dl (32-36); Mean Corpuscular Hemoglobin 32.1 pg (26-34); Mean Platelet Volume 10.1 fl (7.4-10.4); Platelet Count Result 319 k/mm3 (150-375); Red Blood Count 2.93 M/mm3 (4.2-5.4); Red Cell Distribution Width 13.7 % (11.5-14.5)
[2024-03-04 05:25] LABS: Alanine Aminotransferase 46 U/L (6-35); Albumin Level 2.8 g/dL (3.5-5.1); Alkaline Phosphatase 134 U/L (38-126); Anion Gap 4 mmol/L (4-12); Aspartate Amino Transferase 27 U/L (14-36); Bilirubin,Total 0.4 mg/dL (0.2-1.3); Calcium 8.3 mg/dL (8.4-10.2); Carbon Dioxide 29 mmol/L (22-30); Chloride 106 mmol/L (98-107); Estimated CRCL calculation 70 ml/min; Estimated Glomerular Filt Rate > 60; Glucose 242 mg/dL (65-110); Potassium 3.4 mmol/L (3.4-5.0); Sodium 139 mmol/L (137-145)
[2024-03-04 05:27] LABS: Blood Urea Nitrogen < 2 mg/dL (7-17)
[2024-03-04 07:54] LABS: Glucose Point of Care 211 mg/dl (65-105)
[2024-03-04] MEDS: lisinopriL 20 MG TABLET 40 MG PO (08:28)
[2024-03-04] MEDS: POTASSIUM CHLORIDE 20 MEQ PACKET (FOR LIQUID) 40 MEQ PO (08:28)
[2024-03-04] MEDS: VERAPAMIL HCL 180 MG TABLET ER 360 MG PO (08:28)
[2024-03-04] MEDS: TIMOLOL MALEATE 0.5% OP SOLN 5 ML BOTTLE 1 DROP EACH EYE (08:29)
[2024-03-04] MEDS: INSULIN ASPART (*BKC) 100 UNITS/ML SUB-Q ×3 (08:29→17:10)
[2024-03-04] MEDS: polyethylene glycoL 3350 238 GM BOTTLE PO (09:03)
[2024-03-04 10:10] LABS: Glucose Point of Care 262 mg/dl (65-105)
[2024-03-04 12:09] LABS: Glucose Point of Care 255 mg/dl (65-105)
--- NOTE | 2024-03-04 13:50 | PCOTNOTE ---
Patient unavailable for therapy services this P.M. Patient going down for a colonoscopy at this time.
[2024-03-04 14:08] LABS: Glucose Point of Care 241 mg/dl (65-105)
[2024-03-04] MEDS: LACTATED RINGERS 1,000 ML 150 ML IV CONT (14:16)
--- NOTE | 2024-03-04 14:44 | P.PNAN_ITS ---
Anes - Initial Pre Proc Eval Procedure: Operation Date: 03/01/24 14:00 Proposed Procedures p Colonoscopy - Darien Houston MD Operation Date: 03/04/24 15:00 Proposed Procedures p Colonoscopy - Darien Houston MD Date/Time: 03/04/24 14:44 Surgeon: Joi Hirsch MD Pre Op Diagnosis: GI Bleed Patient Data Age: 79 Gender: F Height: 1.65 m Weight: 68.3 kg Last Vital Signs Temp 97.7 F 03/04/24 14:11 Pulse 59 L 03/04/24 14:11 Resp 18 03/04/24 14:11 BP 127/52 L 03/04/24 14:11 Pulse Ox 100 03/04/24 14:11 O2 Del Method Room Air 03/04/24 14:11 Allergies Allergy/AdvReac Type Severity Reaction Status Date / Time No Known Allergies Allergy Verified 03/04/24 14:09 Home Medications Medication Instructions Recorded Confirmed Type latanoprost 0.005 % eye drops 1 drp RIGHT EYE HS 09/27/22 03/02/24 History levothyroxine 125 mcg tablet 100 mcg PO DAILY 09/27/22 03/01/24 History (Unithroid) lisinopril 40 mg tablet 40 mg PO DAILY 09/27/22 03/01/24 History timolol maleate 0.5 % eye drops 1 drp EACH EYE BID 09/27/22 03/02/24 History verapamil 360 mg 24 hr 360 mg PO DAILY 09/27/22 03/01/24 History capsule,extended release clopidogrel 75 mg tablet 75 mg PO DAILY 01/23/23 03/01/24 History sodium chloride 0.65 % nasal spray 2 spray intranasal QID PRN dry 01/23/23 03/01/24 Rx aerosol (Saline Nasal Mist) nasal passages #44 mL torsemide 10 mg tablet 10 mg PO QAM 02/27/23 03/01/24 History aspirin 81 mg tablet,delayed 81 mg PO EVERY OTHER DAY 02/29/24 03/01/24 History release insulin degludec 100 20 unit subcut DAILY 03/02/24 03/02/24 History unit-liraglutide 3.6 mg/mL(3 mL) subcutaneous pen (Xultophy 100/3.6) Laboratory Tests 03/03/24 03/03/24 03/03/24 16:20 18:17 20:30 WBC RBC Hgb Hct MCV MCH MCHC RDW Plt Count MPV Sodium Potassium Chloride Carbon Dioxide Anion Gap BUN Creatinine Estim Creat Clear Calc Estimated GFR Glucose POC Capillary Glucose 368 H mg/dl 392 H mg/dl 291 H mg/dl (65-105) (65-105) (65-105) Calcium Total Bilirubin AST ALT Alkaline Phosphatase Total Protein Albumin 03/03/24 03/04/24 03/04/24 21:49 00:00 02:00 WBC RBC Hgb Hct MCV MCH MCHC RDW Plt Count MPV Sodium Potassium Chloride Carbon Dioxide Anion Gap BUN Creatinine Estim Creat Clear Calc Estimated GFR Glucose POC Capillary Glucose 300 H mg/dl 375 H mg/dl 320 H mg/dl (65-105) (65-105) (65-105) Calcium Total Bilirubin AST ALT Alkaline Phosphatase Total Protein Albumin 03/04/24 03/04/24 03/04/24 04:19 07:40 10:07 WBC 6.0 K/mm3 (4.5-10.0) RBC 2.93 L M/mm3 (4.2-5.4) Hgb 9.4 L g/dL (12.0-15.0) Hct 29.0 L % (37.0-47.0) MCV 99.0 fl (80-100) MCH 32.1 pg (26-34) MCHC 32.4 g/dl (32-36) RDW 13.7 % (11.5-14.5) Plt Count 319 k/mm3 (150-375) MPV 10.1 fl (7.4-10.4) Sodium 139 mmol/L (137-145) Potassium 3.4 mmol/L (3.4-5.0) Chloride 106 mmol/L (98-107) Carbon Dioxide 29 mmol/L (22-30) Anion Gap 4 mmol/L (4-12) BUN < 2 L mg/dL (7-17) Creatinine 0.50 L mg/dL (0.7-1.0) Estim Creat Clear Calc 70 ml/min Estimated GFR > 60 (59 - ) Glucose 242 H mg/dL (65-110) POC Capillary Glucose 211 H mg/dl 262 H mg/dl (65-105) (65-105) Calcium 8.3 L mg/dL (8.4-10.2) Total Bilirubin 0.4 mg/dL (0.2-1.3) AST 27 U/L (14-36) ALT 46 H U/L (6-35) Alkaline Phosphatase 134 H U/L (38-126) Total Protein 6.0 L g/dL (6.3-8.2) Albumin 2.8 L g/dL (3.5-5.1) 03/04/24 03/04/24 11:44 14:04 WBC RBC Hgb Hct MCV MCH MCHC RDW Plt Count MPV Sodium Potassium Chloride Carbon Dioxide Anion Gap BUN Creatinine Estim Creat Clear Calc Estimated GFR Glucose POC Capillary Glucose 255 H mg/dl 241 H mg/dl (65-105) (65-105) Calcium Total Bilirubin AST ALT Alkaline Phosphatase Total Protein Albumin Patient hx anesthesia problems: none Family hx anesthesia problems: none Results Review: All pre-operative results and documents have been reviewed as part of the pre- operative evaluation. 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 She lives alone. Lifelong nonsmoker. No alcohol or drug use. Code status -DNR Surrogate decision maker -son Smoking status: Never smoker Alcohol intake: never Substance use: never Substance use type: does not use Do You Feel Safe in your Home?: Yes Lack of Transportation: No Lack of Food: Never True Current Housing: I Have Housing Concerned About Future Housing: No Difficulty Paying Gas/Electric Bills: No Difficulty Paying for Meds: No Currently Unemployed: No Education: High School Diploma/GED Difficulty w/ Childcare or Family Care: No Spiritual care concerns: Yes Janell Seymour Final PreProcedure Day of Procedure 03/04/24 14:44 Patient weight: normal and overweight Heart: regular rate and rhythm and murmur (2/6 at R sternal border. ) Lungs: clear to auscultation Airway: Mallampati scale and special considerations (Edentulous upper. ) Neurological: alert and oriented Last oral intake: >/= 8 hours ASA classification: IV Emergent: no Anesthetic plan: proceed Anesthesia type and monitoring: general GIVS and standard monitoring Results Review: All pre-operative results and documents have been reviewed as part of the pre- operative evaluation. Hx of , carotid disease, PVD, DM, HTN, hypothyroidism, now for repeat colonscopy after attempt done 3 days ago with a poor prep. Informed Consent: The patient's anesthetic plan and its attendant risks and benefits were discussed with the patient/family/POA. Questions were solicited and answers provided to the satisfaction of the patient/family/POA.
--- NOTE | 2024-03-04 14:52 | P.PNGI_ITS ---
Progress Note: A&P Assessment and Plan (1) GI bleeding: Code(s): K92.2 - Gastrointestinal hemorrhage, unspecified Status: Acute Assessment and Plan: Patient here for colonoscopy after 2 day prep for incomplete cleansing last week. Subjective Date/time seen: 03/04/24 14:52 Objective Data Vital Signs Vital Signs: Vital Signs - 24 hr 03/03/24 16:00 03/03/24 16:00 03/03/24 16:00 Temperature 98.2 F Pulse Rate 54 L 54 L Respiratory Rate 20 Blood Pressure 122/66 Pulse Oximetry 95 Oxygen Delivery Room Air 03/03/24 18:00 03/03/24 20:56 03/03/24 20:00 Temperature 97.6 F Pulse Rate 59 L 61 56 L Respiratory Rate 20 20 Blood Pressure 166/60 H Pulse Oximetry 98 98 Oxygen Delivery Room Air 03/03/24 20:00 03/03/24 21:47 03/03/24 23:23 Temperature Pulse Rate 56 L 64 74 Respiratory Rate 20 Blood Pressure Pulse Oximetry 98 Oxygen Delivery Room Air 03/03/24 23:23 03/04/24 00:39 03/04/24 02:00 Temperature 97.7 F Pulse Rate 74 85 64 Respiratory Rate 20 Blood Pressure 131/60 Pulse Oximetry 99 Oxygen Delivery 03/04/24 03:21 03/04/24 03:21 03/04/24 03:46 Temperature 98.5 F Pulse Rate 64 76 78 Respiratory Rate 20 20 Blood Pressure 164/84 H Pulse Oximetry 99 100 Oxygen Delivery Room Air 03/04/24 05:57 03/04/24 07:58 03/04/24 09:46 Temperature 98.8 F Pulse Rate 88 88 Respiratory Rate 18 Blood Pressure 153/74 H Pulse Oximetry 100 Oxygen Delivery Room Air 03/04/24 08:00 03/04/24 10:00 03/04/24 11:48 Temperature 97.7 F Pulse Rate 73 99 61 Respiratory Rate 18 Blood Pressure 136/60 Pulse Oximetry 98 Oxygen Delivery 03/04/24 12:00 03/04/24 14:11 Temperature 97.7 F Pulse Rate 67 59 L Respiratory Rate 18 Blood Pressure 127/52 L Pulse Oximetry 100 Oxygen Delivery Room Air Intake/Output Intake/Output: Intake & Output 11/22/24 11/23/24 11/24/24 11/25/24 23:59 23:59 23:59 23:59 Intake Total 3660.0 2040 1750 300 Output Total 2600 1000 350 Balance 3660.0 -560 750 -50 Meds/Results Medications: Active Medications Generic Name Dose Route Start Last Admin Trade Name Freq PRN Reason Stop Dose Admin Acetaminophen 650 mg 03/03/24 17:56 Acetaminophen 325 Mg Tablet PO Q6H PRN Pain Rated 5 or Less or fever Hydrocodone Bitart/Acetaminophen 1 tab 03/03/24 17:56 Hydrocodone/Acetaminophen (*Crx) 5-325 Mg Tablet PO Q6H PRN Pain Rated 6 or Greater Dextrose 12.5 gm 03/01/24 09:21 Dextrose 50% 25 Gm/50 Ml Syringe IV PUSH PRN PRN Hypoglycemia Protocol Glucagon 1 mg 03/01/24 09:21 Glucagon For Inj 1 Mg Vial IM PRN PRN Hypoglycemia Protocol Glucose 15 gm 03/01/24 09:21 Glucose Oral Gel 15 Gm Of Glucse In 37.5 Gm Tube PO PRN PRN Hypoglycemia Protocol Dextrose 1,000 mls @ 100 mls/hr 03/01/24 09:21 Dextrose 5% 1,000 Ml IVPB PRN PRN Hypoglycemia Protocol Metronidazole 500 mg in 100 mls @ 100 mls/hr 03/01/24 11:00 03/04/24 13:01 Flagyl 500 Mg/Iso Soln 100 Ml IVPB Infused Q8H [facility] Infusion Ceftriaxone Sodium 1 gm in 50 mls @ 100 mls/hr 03/01/24 09:35 03/04/24 08:30 Rocephin 1 Gm/Ns 50 Ml IVPB 100 mls/hr DAILY [facility] Administration Lactated Ringer's 1,000 mls @ 150 mls/hr 03/04/24 14:15 03/04/24 14:16 Lr - Lactated Ringers Iv IV CONT 150 mls/hr .Q6H40M ANNA Administration Insulin Aspart 2 - 5 units 03/01/24 12:00 03/04/24 12:00 Insulin Aspart (*Bkc) 100 Units/Ml SUB-Q 3 units TIDWM [facility] Administration Protocol Insulin Glargine 10 units 03/02/24 21:00 03/03/24 21:14 Insulin Glargine (*Bkc) 100 Units/Ml 0.15 units/kg (10 units) 10 units SUB-Q Administration HS [facility] Latanoprost 1 drop 03/02/24 21:15 03/03/24 21:13 Latanoprost 0.005% Op Soln 2.5 Ml Btl RIGHT EYE 1 drop HS ANNA Administration Levothyroxine Sodium 100 mcg 03/02/24 06:30 03/04/24 05:58 Levothyroxine Sodium 100 Mcg Tablet PO Not Given DAILY@0630 [facility] Lisinopril 40 mg 03/02/24 09:00 03/04/24 08:28 Lisinopril 20 Mg Tablet PO 40 mg DAILY [facility] Administration Ondansetron HCl 4 mg 03/01/24 01:01 Ondansetron Inj 4 Mg/2 Ml Vial IV PUSH Q6H PRN Nausea And Vomiting Sodium Chloride 2 spray 03/01/24 18:16 03/02/24 09:05 Saline 0.65% Dane Soln 44 Ml Btl NASAL 2 spray QID PRN Administration dry nasal passages Timolol Maleate 1 drop 03/02/24 23:10 03/04/24 08:29 Timolol Maleate 0.5% Op Soln 5 Ml Bottle EACH EYE 1 drop Q12HR ANNA Administration Torsemide 10 mg 03/02/24 09:00 03/02/24 09:04 Torsemide 10 Mg Tablet PO 10 mg QAM ANNA Administration Verapamil HCl 360 mg 03/02/24 08:00 03/04/24 08:28 Verapamil Hcl 180 Mg Tablet Er PO 360 mg DAILY@0800 [facility] Administration Radiology Results: ITS Impressions Upper Quadrant Ultrasound 03/01/24 16:27 IMPRESSION: 1. Distended gallbladder with gallbladder sludge, gallstones and trace amount of pericholecystic fluid but without evident wall thickening and with negative sonographic Orozco sign which is equivocal for acute cholecystitis. If there is clinical concern for acute cholecystitis could consider HIDA scan for further evaluation. 2. Heterogeneous hepatic echogenicity with geographic non masslike regions of subtly decreased echogenicity in the left hepatic lobe which could be related to mild heterogeneous hepatic steatosis. Consider further evaluation with pre and postcontrast MRI for more definitive determination. Labs Labs: Laboratory Results - last 24 hr 03/03/24 03/03/24 03/03/24 16:20 18:17 20:30 WBC RBC Hgb Hct MCV MCH MCHC RDW Plt Count MPV Sodium Potassium Chloride Carbon Dioxide Anion Gap BUN Creatinine Estim Creat Clear Calc Estimated GFR Glucose POC Capillary Glucose 368 H 392 H 291 H Calcium Total Bilirubin AST ALT Alkaline Phosphatase Total Protein Albumin 03/03/24 03/04/24 03/04/24 21:49 00:00 02:00 WBC RBC Hgb Hct MCV MCH MCHC RDW Plt Count MPV Sodium Potassium Chloride Carbon Dioxide Anion Gap BUN Creatinine Estim Creat Clear Calc Estimated GFR Glucose POC Capillary Glucose 300 H 375 H 320 H Calcium Total Bilirubin AST ALT Alkaline Phosphatase Total Protein Albumin 03/04/24 03/04/24 03/04/24 04:19 07:40 10:07 WBC 6.0 RBC 2.93 L Hgb 9.4 L Hct 29.0 L MCV 99.0 MCH 32.1 MCHC 32.4 RDW 13.7 Plt Count 319 MPV 10.1 Sodium 139 Potassium 3.4 Chloride 106 Carbon Dioxide 29 Anion Gap 4 BUN < 2 L Creatinine 0.50 L Estim Creat Clear Calc 70 Estimated GFR > 60 Glucose 242 H POC Capillary Glucose 211 H 262 H Calcium 8.3 L Total Bilirubin 0.4 AST 27 ALT 46 H Alkaline Phosphatase 134 H Total Protein 6.0 L Albumin 2.8 L 03/04/24 03/04/24 11:44 14:04 WBC RBC Hgb Hct MCV MCH MCHC RDW Plt Count MPV Sodium Potassium Chloride Carbon Dioxide Anion Gap BUN Creatinine Estim Creat Clear Calc Estimated GFR Glucose POC Capillary Glucose 255 H 241 H Calcium Total Bilirubin AST ALT Alkaline Phosphatase Total Protein Albumin
--- NOTE | 2024-03-04 15:33 | WPDGIPROGNO ---
Progress Note: A&P Assessment and Plan (1) GI bleeding: Code(s): K92.2 - Gastrointestinal hemorrhage, unspecified Status: Acute Assessment and Plan: See report. No active bleeding, cause of bleeding : diverticulosis. No need for further colonoscopies due to advanced age. Can be discharged home from our specialty standpoint. Subjective Date/time seen: 03/04/24 15:33 Objective Data Vital Signs Vital Signs: Vital Signs - 24 hr 03/03/24 16:00 03/03/24 16:00 03/03/24 16:00 Temperature 98.2 F Pulse Rate 54 L 54 L Respiratory Rate 20 Blood Pressure 122/66 Pulse Oximetry 95 Oxygen Delivery Room Air 03/03/24 18:00 03/03/24 20:56 03/03/24 20:00 Temperature 97.6 F Pulse Rate 59 L 61 56 L Respiratory Rate 20 20 Blood Pressure 166/60 H Pulse Oximetry 98 98 Oxygen Delivery Room Air 03/03/24 20:00 03/03/24 21:47 03/03/24 23:23 Temperature Pulse Rate 56 L 64 74 Respiratory Rate 20 Blood Pressure Pulse Oximetry 98 Oxygen Delivery Room Air 03/03/24 23:23 03/04/24 00:39 03/04/24 02:00 Temperature 97.7 F Pulse Rate 74 85 64 Respiratory Rate 20 Blood Pressure 131/60 Pulse Oximetry 99 Oxygen Delivery 03/04/24 03:21 03/04/24 03:21 03/04/24 03:46 Temperature 98.5 F Pulse Rate 64 76 78 Respiratory Rate 20 20 Blood Pressure 164/84 H Pulse Oximetry 99 100 Oxygen Delivery Room Air 03/04/24 05:57 03/04/24 07:58 03/04/24 09:46 Temperature 98.8 F Pulse Rate 88 88 Respiratory Rate 18 Blood Pressure 153/74 H Pulse Oximetry 100 Oxygen Delivery Room Air 03/04/24 08:00 03/04/24 10:00 03/04/24 11:48 Temperature 97.7 F Pulse Rate 73 99 61 Respiratory Rate 18 Blood Pressure 136/60 Pulse Oximetry 98 Oxygen Delivery 03/04/24 12:00 03/04/24 14:11 Temperature 97.7 F Pulse Rate 67 59 L Respiratory Rate 18 Blood Pressure 127/52 L Pulse Oximetry 100 Oxygen Delivery Room Air Intake/Output Intake/Output: Intake & Output 03/01/24 03/02/24 03/03/24 03/04/24 23:59 23:59 23:59 23:59 Intake Total 3660.0 2040 1750 477.5 Output Total 2600 1000 350 Balance 3660.0 -560 750 127.5 Meds/Results Medications: Active Medications Generic Name Dose Route Start Last Admin Trade Name Freq PRN Reason Stop Dose Admin Acetaminophen 650 mg 03/03/24 17:56 Acetaminophen 325 Mg Tablet PO Q6H PRN Pain Rated 5 or Less or fever Hydrocodone Bitart/Acetaminophen 1 tab 03/03/24 17:56 Hydrocodone/Acetaminophen (*Crx) 5-325 Mg Tablet PO Q6H PRN Pain Rated 6 or Greater Dextrose 12.5 gm 03/01/24 09:21 Dextrose 50% 25 Gm/50 Ml Syringe IV PUSH PRN PRN Hypoglycemia Protocol Glucagon 1 mg 03/01/24 09:21 Glucagon For Inj 1 Mg Vial IM PRN PRN Hypoglycemia Protocol Glucose 15 gm 03/01/24 09:21 Glucose Oral Gel 15 Gm Of Glucse In 37.5 Gm Tube PO PRN PRN Hypoglycemia Protocol Dextrose 1,000 mls @ 100 mls/hr 03/01/24 09:21 Dextrose 5% 1,000 Ml IVPB PRN PRN Hypoglycemia Protocol Metronidazole 500 mg in 100 mls @ 100 mls/hr 03/01/24 11:00 03/04/24 13:01 Flagyl 500 Mg/Iso Soln 100 Ml IVPB Infused Q8H ANNA Infusion Ceftriaxone Sodium 1 gm in 50 mls @ 100 mls/hr 03/01/24 09:35 03/04/24 08:30 Rocephin 1 Gm/Ns 50 Ml IVPB 100 mls/hr DAILY ANNA Administration Lactated Ringer's 1,000 mls @ 150 mls/hr 03/04/24 14:15 03/04/24 15:27 Lr - Lactated Ringers Iv IV CONT 150 mls/hr .Q6H40M ANNA Titration Insulin Aspart 2 - 5 units 03/01/24 12:00 03/04/24 12:00 Insulin Aspart (*Bkc) 100 Units/Ml SUB-Q 3 units TIDWM ANNA Administration Protocol Insulin Glargine 10 units 03/02/24 21:00 03/03/24 21:14 Insulin Glargine (*Bkc) 100 Units/Ml 0.15 units/kg (10 units) 10 units SUB-Q Administration HS ANNA Latanoprost 1 drop 03/02/24 21:15 03/03/24 21:13 Latanoprost 0.005% Op Soln 2.5 Ml Btl RIGHT EYE 1 drop HS ANNA Administration Levothyroxine Sodium 100 mcg 03/02/24 06:30 03/04/24 05:58 Levothyroxine Sodium 100 Mcg Tablet PO Not Given DAILY@0630 [facility] Lisinopril 40 mg 03/02/24 09:00 03/04/24 08:28 Lisinopril 20 Mg Tablet PO 40 mg DAILY ANNA Administration Ondansetron HCl 4 mg 03/01/24 01:01 Ondansetron Inj 4 Mg/2 Ml Vial IV PUSH Q6H PRN Nausea And Vomiting Sodium Chloride 2 spray 03/01/24 18:16 03/02/24 09:05 Saline 0.65% Dane Soln 44 Ml Btl NASAL 2 spray QID PRN Administration dry nasal passages Timolol Maleate 1 drop 03/02/24 23:10 03/04/24 08:29 Timolol Maleate 0.5% Op Soln 5 Ml Bottle EACH EYE 1 drop Q12HR ANNA Administration Torsemide 10 mg 03/02/24 09:00 03/02/24 09:04 Torsemide 10 Mg Tablet PO 10 mg QAM ANNA Administration Verapamil HCl 360 mg 03/02/24 08:00 03/04/24 08:28 Verapamil Hcl 180 Mg Tablet Er PO 360 mg DAILY@0800 ANNA Administration Radiology Results: ITS Impressions Upper Quadrant Ultrasound 03/01/24 16:27 IMPRESSION: 1. Distended gallbladder with gallbladder sludge, gallstones and trace amount of pericholecystic fluid but without evident wall thickening and with negative sonographic Orozco sign which is equivocal for acute cholecystitis. If there is clinical concern for acute cholecystitis could consider HIDA scan for further evaluation. 2. Heterogeneous hepatic echogenicity with geographic non masslike regions of subtly decreased echogenicity in the left hepatic lobe which could be related to mild heterogeneous hepatic steatosis. Consider further evaluation with pre and postcontrast MRI for more definitive determination. Labs Labs: Laboratory Results - last 24 hr 03/03/24 03/03/24 03/03/24 16:20 18:17 20:30 WBC RBC Hgb Hct MCV MCH MCHC RDW Plt Count MPV Sodium Potassium Chloride Carbon Dioxide Anion Gap BUN Creatinine Estim Creat Clear Calc Estimated GFR Glucose POC Capillary Glucose 368 H 392 H 291 H Calcium Total Bilirubin AST ALT Alkaline Phosphatase Total Protein Albumin 03/03/24 03/04/24 03/04/24 21:49 00:00 02:00 WBC RBC Hgb Hct MCV MCH MCHC RDW Plt Count MPV Sodium Potassium Chloride Carbon Dioxide Anion Gap BUN Creatinine Estim Creat Clear Calc Estimated GFR Glucose POC Capillary Glucose 300 H 375 H 320 H Calcium Total Bilirubin AST ALT Alkaline Phosphatase Total Protein Albumin 03/04/24 03/04/24 03/04/24 04:19 07:40 10:07 WBC 6.0 RBC 2.93 L Hgb 9.4 L Hct 29.0 L MCV 99.0 MCH 32.1 MCHC 32.4 RDW 13.7 Plt Count 319 MPV 10.1 Sodium 139 Potassium 3.4 Chloride 106 Carbon Dioxide 29 Anion Gap 4 BUN < 2 L Creatinine 0.50 L Estim Creat Clear Calc 70 Estimated GFR > 60 Glucose 242 H POC Capillary Glucose 211 H 262 H Calcium 8.3 L Total Bilirubin 0.4 AST 27 ALT 46 H Alkaline Phosphatase 134 H Total Protein 6.0 L Albumin 2.8 L 03/04/24 03/04/24 11:44 14:04 WBC RBC Hgb Hct MCV MCH MCHC RDW Plt Count MPV Sodium Potassium Chloride Carbon Dioxide Anion Gap BUN Creatinine Estim Creat Clear Calc Estimated GFR Glucose POC Capillary Glucose 255 H 241 H Calcium Total Bilirubin AST ALT Alkaline Phosphatase Total Protein Albumin
[2024-03-04 15:51] LABS: Glucose Point of Care 225 mg/dl (65-105)
--- NOTE | 2024-03-04 16:08 | PM.DS ---
DS: Admitting Diagnosis Discharge Date 03/04/24 Admitting Diagnosis Rectal bleeding. DS: Discharge Diagnosis Discharge Diagnosis (1) GI bleeding: Code(s): K92.2 - Gastrointestinal hemorrhage, unspecified Status: Acute (2) Colitis: Code(s): K52.9 - Noninfective gastroenteritis and colitis, unspecified Status: Acute (3) Diabetes mellitus: Code(s): E11.9 - Type 2 diabetes mellitus without complications Status: Acute (4) Hypertension: Code(s): I10 - Essential (primary) hypertension Status: Acute (5) Hypothyroidism: Code(s): E03.9 - Hypothyroidism, unspecified Status: Acute (6) PAD (peripheral artery disease): Code(s): I73.9 - Peripheral vascular disease, unspecified Status: Acute (7) Elevated LFTs: Code(s): R79.89 - Other specified abnormal findings of blood chemistry Status: Acute DS: Summary Hospital Course Reason for hospitalization: 79yo female with CAD, DM and HTN who presents with 3 day hx of bright red blood per rectum. Please see H&P for details. Hospital Course: Patient presents with bright red blood per rectum. CT scan shows sigmoid colon wall thickening. Could be inflammation from infection but no pain, fever, or elevated white count. ASA and Plavix held. Iron studies normal in October. Hgb has dropped to 8.5 before climbing to the 9 range. GI consulted. Colonoscopy performed 03/01 but incomplete due to poor prep. She had a longer prep this weekend. She was passing blood per rectum but this has resolved. Antibiotics started in the emergency room for possible colitis but nothing to suggest colitis by endoscopy. Abx stopped. A1c 6.8%. The patient's blood glucose was monitored with AccuCheks covering with sliding scale. Hypoglycemia protocol was available as needed. Patient with known peripheral arterial disease with recent balloon angioplasty in July to the left lower extremity. She is also being followed for carotid stenosis. No hx of stents placed. ALT 114 and AP 206 on admission. Level have not been elevated before. Liver normal by CT and no pain on exam. Hepatitis panel negative. RUQ US showing distended GB with gallbladder sludge, gallstones and trace amount of pericholecystic fluid but without evident wall thickening and with negative sonographic Orozco sign which is equivocal for acute cholecystitis. No clinical evidence of GB dsease. Heterogeneous hepatic echogenicity with geographic non masslike regions of subtly decreased echogenicity in the left hepatic lobe which could be related to mild heterogeneous hepatic steatosis. LFTs mildly elevated due to hepatic steatosis and levels improved on repeat. Patient underwent colonoscopy that showed multiple medium diverticula in the descending colon and sigmoid colon. Colon was otherwise unremarkable. No polyps. Patient has been up ambulating with therapy. Therapy recommended home health which has been arranged. She overall did well was able be discharged home on 03/04/2024. Status at Discharge Cognitive/behavioral status at discharge: Stable Time Spent with Patient Time attestation: Total time spent providing and/or coordinating discharge services: 35 minutes Time spent: Greater than 30 minutes Exam Narrative: AF 98.3 157/59 65 18 100% ra Gen - NARD Chest - CTA bilaterally, nml RR CV - RRR S1-S2. Tele showing occasional PVCs Abd - Soft. Nontender. Nondistended. Positive bowel sounds. Ext - no pedal edema. Psych - normal mood and affect. Skin - warm and dry. DS: Data Data Completed and Pending Labs on day of discharge: Labs from last 24 hours 03/04/24 03/04/24 03/04/24 15:47 14:04 11:44 WBC RBC Hgb Hct MCV MCH MCHC RDW Plt Count MPV Sodium Potassium Chloride Carbon Dioxide Anion Gap BUN Creatinine Estim Creat Clear Calc Estimated GFR Glucose POC Capillary Glucose 225 H 241 H 255 H Calcium Total Bilirubin AST ALT Alkaline Phosphatase Total Protein Albumin 03/04/24 03/04/24 03/04/24 10:07 07:40 04:19 WBC 6.0 RBC 2.93 L Hgb 9.4 L Hct 29.0 L MCV 99.0 MCH 32.1 MCHC 32.4 RDW 13.7 Plt Count 319 MPV 10.1 Sodium 139 Potassium 3.4 Chloride 106 Carbon Dioxide 29 Anion Gap 4 BUN < 2 L Creatinine 0.50 L Estim Creat Clear Calc 70 Estimated GFR > 60 Glucose 242 H POC Capillary Glucose 262 H 211 H Calcium 8.3 L Total Bilirubin 0.4 AST 27 ALT 46 H Alkaline Phosphatase 134 H Total Protein 6.0 L Albumin 2.8 L 03/04/24 03/04/24 03/03/24 02:00 00:00 21:49 WBC RBC Hgb Hct MCV MCH MCHC RDW Plt Count MPV Sodium Potassium Chloride Carbon Dioxide Anion Gap BUN Creatinine Estim Creat Clear Calc Estimated GFR Glucose POC Capillary Glucose 320 H 375 H 300 H Calcium Total Bilirubin AST ALT Alkaline Phosphatase Total Protein Albumin 03/03/24 03/03/24 03/03/24 20:30 18:17 16:20 WBC RBC Hgb Hct MCV MCH MCHC RDW Plt Count MPV Sodium Potassium Chloride Carbon Dioxide Anion Gap BUN Creatinine Estim Creat Clear Calc Estimated GFR Glucose POC Capillary Glucose 291 H 392 H 368 H Calcium Total Bilirubin AST ALT Alkaline Phosphatase Total Protein Albumin Discharge Plan Discharge Attending physician on discharge: Han Donato Discharging Clinician: Han Donato Anticipated Discharge Date/Time: 03/04/24 16:18 Patient Disposition: Home Health Service Activity: as tolerated Diet: high fiber Discharge Instructions: Care Coordination: Patient to have [facility] for PT/OT eval and treat, and half-way. Their phone number is [phone], if you have any questions. They will contact you to schedule their first visit. Please check glucose before meals and before bed. Record and bring into your doctor for review. Check blood pressure 1 to 2 times a day. Record and bring into your doctor for review. Call your doctor if your blood pressure is greater than 180/110. Take precautions to avoid falls. Rise slowly from a lying or sitting position. Pause before standing or walking. Contact your doctor or call 911 and come to the Emergency Room if you have rectal bleeding, lightheadedness with standing or other worrisome symptoms. Avoid NSAIDs (ibuprofen, naproxen, Aleve). Tylenol is safe to take. Follow-up with your primary care provider in 1-2 weeks. Please call for appointment. Thank you for using [facility] for your health care needs. Patient Instructions: Antibiotic Form, Gastrointestinal Bleeding (GEN), Rectal Bleeding (GEN) Stand Alone Forms: General Discharge Information Follow-up/Referrals: Myke Clarke MD [Primary Care Provider] - Call for Appointment Discharge Medications: Continued latanoprost 0.005 % drops 1 drp RIGHT EYE HS verapamil 360 mg capsule,ext rel. pellets 24 hr 360 mg PO DAILY levothyroxine [Unithroid] 125 mcg tablet 100 mcg PO DAILY timolol maleate 0.5 % drops 1 drp EACH EYE BID lisinopril 40 mg tablet 40 mg PO DAILY clopidogrel 75 mg tablet 75 mg PO DAILY Saline Nasal Mist 0.65 % aerosol,spray 2 spray intranasal QID PRN (Reason: dry nasal passages) Qty: 44 0RF aspirin 81 mg tablet,delayed release (DR/EC) 81 mg PO EVERY OTHER DAY torsemide 10 mg tablet 10 mg PO QAM Xultophy 100/3.6 100 unit-3.6 mg /mL (3 mL) insulin pen 20 unit SUBCUT DAILY Date of admission: 03/02/24 14:59 Primary Care Provider: Myke Clarke Admitting Provider: Joi Hirsch V. Attending physician on admission: Joi Hirsch V. Condition: Stable Hospitalist MIPS Heart Failure (Exclusion) Patient has history of Heart Transplant or Left Ventricular Assistive Device?: No IF YES, STOP HERE Heart Failure (Qualifier) Patient has current or prior documentation of LVEF less than or equal to 40%, or mod/servere depressed LVSF?: No IF NO, STOP HERE
[2024-03-04 16:26] LABS: Glucose Point of Care 215 mg/dl (65-105)
--- NOTE | 2024-03-04 18:52 | PC.NURSE ---
IVs and tele removed. DC instructions given to both patient and son. Both parties verbalized understanding. MUSTAPHA dc.
== END 2024-03-04 18:40 | disposition home health service (06) | DRG 379 ==
PROVIDERS: Absent Provider Internal Medicine Gastroenterology; Admitting Provider Internal Medicine; PCP Internal Medicine; Visit Provider Internal Medicine
PROC: 0DJD8ZZ Inspection of Lower Intestinal Tract, Via Natural or Artificial Opening Endoscopic (ICD-10-PCS; CPT 45378; principal; 2024-03-01 14:00)
DX: K57.31 Diverticulosis of large intestine without perforation or abscess with bleeding (principal); K52.9 Noninfective gastroenteritis and colitis, unspecified; E11.51 Type 2 diabetes mellitus with diabetic peripheral angiopathy without gangrene; E03.9 Hypothyroidism, unspecified; E11.42 Type 2 diabetes mellitus with diabetic polyneuropathy; I35.0 Nonrheumatic aortic (valve) stenosis; I25.10 Atherosclerotic heart disease of native coronary artery without angina pectoris; I10 Essential (primary) hypertension; R05.3 Chronic cough; R79.89 Other specified abnormal findings of blood chemistry; Z66 Do not resuscitate; Z79.4 Long term (current) use of insulin; Z79.01 Long term (current) use of anticoagulants; Z79.02 Long term (current) use of antithrombotics/antiplatelets; Z79.82 Long term (current) use of aspirin
CPT/HCPCS: 36415; 76705; 80048; 80053; 80074; 82948; 82977; 83036; 83690; 83735; 84100; 85014; 85018; 85025; 85027; 85610; 85730; 86140; 97161; 97165; 97535; A9270; G0378; G0379; J0696; J1815; J1836; J2003; J2704; J7120

== ENCOUNTER 2024-04-04 12:29 | Outpatient (CLI) | payer MEDICARE, SELFPAY ==
[2024-04-04 12:53] VITALS: BP 127/54; PULSE 81; RESP 18; TEMP 37; O2SAT 96
[2024-04-04] MEDS: IRON SUCROSE COMPLEX 300 MG in SODIUM CHLORIDE 0.9% IV 250 ML 125 MG IVPB (13:26)
[2024-04-04 13:48] VITALS: BMI 23.0
--- NOTE | 2024-04-04 16:30 | PC.NURSE ---
Patient completed IV infusion. IV line flushed and removed. Patient tolerated medication well. No c/o offered. Patient assisted to her car by her son.
== END 2024-04-04 16:05 | disposition home or self-care (01) ==
PROVIDERS: PCP Internal Medicine; Visit Provider Internal Medicine
DX: D50.9 Iron deficiency anemia, unspecified (principal)
CPT/HCPCS: 96365; 96366; J1756; J7050

== ENCOUNTER 2024-04-11 12:23 | Outpatient (CLI) | payer MEDICARE, SELFPAY ==
[2024-04-11] MEDS: IRON SUCROSE COMPLEX 300 MG in SODIUM CHLORIDE 0.9% IV 250 ML 125 MG IVPB (12:50)
[2024-04-11 13:31] VITALS: BMI 20.1
[2024-04-11 13:34] VITALS: BP 135/60; PULSE 85; RESP 14; TEMP 36.4; O2SAT 98
--- NOTE | 2024-04-11 15:59 | PC.NURSE ---
Patient IV therapy completed. No c/o side effects of medication. IV removed intact. Pressure applied then covered with gauze and tape. Patient intructed on site care and what to do if she has any problems. Son pushed patient to car.
== END 2024-04-11 15:30 | disposition home or self-care (01) ==
PROVIDERS: PCP Internal Medicine; Visit Provider Internal Medicine
DX: D50.9 Iron deficiency anemia, unspecified (principal)
CPT/HCPCS: 96365; 96366; J1756; J7050